=== PATIENT | female | born 1950 | race Caucasian/White ===

== ENCOUNTER → 2018-12-13 11:03 | Outpatient (CLI) | payer SELFPAY ==
--- NOTE | 2018-12-13 11:13 | RAD_ITS ---
STUDY: X-RAY - LEFT WRIST REASON FOR EXAM: Female, 68 years old. Pain following a fall. TECHNIQUE: 3 view(s) of the wrist were obtained. COMPARISON: None. FINDINGS: Normal visualized distal radius and ulna. Normal radiocarpal articulation. Normal distal radioulnar articulation. Normal carpal bones. Normal carpal articulations. Normal carpometacarpal articulation of the thumb. Normal second through fifth carpometacarpal articulations. Normal visualized metacarpal bones. Soft tissue swelling. RAD/Wrist min 3 Views IMPRESSION: Soft tissue swelling. Electronically Signed: Natan Dave, at 11:44 EDT , Service support ,
--- NOTE | 2018-12-13 11:14 | RAD_ITS ---
STUDY: X-RAY - LEFT HAND REASON FOR EXAM: Female, 68 years old. Pain following a fall. TECHNIQUE: 3 view(s) of the hand. COMPARISON: None. FINDINGS: Normal radiocarpal articulation. Normal distal radioulnar joint. Normal visualized carpal bones. Normal carpal articulations Normal carpometacarpal articulation of the thumb. Normal second through fifth carpometacarpal joints. Normal metacarpi. Normal metacarpophalangeal joint of the thumb. Normal interphalangeal joint of the thumb. Normal proximal and distal phalanges of the thumb. Normal metacarpophalangeal joints of the second through fifth fingers. Normal proximal and distal interphalangeal joints of the second through fifth fingers. Normal phalanges of the second through fifth fingers. The soft tissue structures are unremarkable. RAD/Hand Min 3 Views IMPRESSION: Normal x-ray examination of the hand. Electronically Signed: Natan Dave, at 11:43 EDT , Service support ,
== END ==
PROVIDERS: Family Provider Internal Medicine; PCP Internal Medicine; Referring Provider Nurse Practitioner Gerontology; Visit Provider Nurse Practitioner Gerontology
DX: M25.532 Pain in left wrist (principal)
CPT/HCPCS: 73110; 73130

== ENCOUNTER 2019-05-01 10:18 | Emergency (ER) | payer OTHER, SELFPAY ==
[2019-05-01 10:19] VITALS: BP 155/85; PULSE 78; RESP 20; TEMP 36.6; O2SAT 96; BMI 24.1
--- NOTE | 2019-05-01 10:50 | EKG12_ITS ---
Test Reason : N/V Blood Pressure : / mmHG Vent. Rate : 066 BPM Atrial Rate : 066 BPM P-R Int : 176 ms QRS Dur : 084 ms QT Int : 428 ms P-R-T Axes : 072 015 047 degrees QTc Int : 448 ms Normal sinus rhythm Normal ECG Confirmed by GARRETT DAVIDSON ([id number]), marketing editor MELCHOR CLEMONS ([id number]) on 05/06/2019 2:46:52 PM Referred By: EDDIE Confirmed By:GARRETT DAVIDSON
--- NOTE | 2019-05-01 10:50 | ED.DCSUM_ITS ---
History of Present Illness Chief Complaint: Nausea/Vomiting Informant: Patient Onset: Today Current Severity: Moderate Maximum Severity: Moderate Narrative: Patient presents after having diarrhea all day yesterday. This morning around 630 she started having nausea and vomiting along with mid to right sided abdominal pain. She is had occasional diarrhea today. She states she feels like she needs to urinate but is not able. She denies fever or chills. She denies prior abdominal surgery. Past Medical History - Allergies and Home Meds Allergies/Adverse Reactions: Allergies formaldehyde Allergy (Verified 05/01/19 10:21) Hives Primary Care Physician: Brenda Whelan DO [Primary Care Provider] - Prior records reviewed: Yes Past Medical History: - - Reviewed Lives: Spouse/ Significant Other Review of Systems General: Denies: Chills, Fever Eyes: Denies: Visual changes - bilaterally ENT: Denies: Bilateral ear pain Cardiovascular: Denies: Chest pain Respiratory: Denies: Dyspnea, Cough Gastrointestinal: Reports: Abdominal pain, Nausea, Vomiting, Diarrhea Genitourinary: Denies: Dysuria Musculoskeletal: Reports: Back pain - Right-sided abdominal pain wraps to right flank Skin: Denies: Rash Neurological: Denies: Headache Allergy: Denies: Uticaria Physical Exam Vital Signs/Narrative: Vital Signs Temp Pulse Resp BP Pulse Ox 05/01/19 10:19 98 F 78 20 H 155/85 H 96 Inital Vital Signs reviewed: Yes General: Well nourished, Well developed ENT: Moist mucous membranes Neck: Supple Cardiovascular: Regular rate, Regular rhythm Respiratory: No distress, CTA bilaterally Abdomen: Soft, Tender - Mild right upper quadrant tenderness., Hypoactive bowel sounds. Negative for: Guarding, Rebound tenderness Extremities: Nontender Skin: Normal color Neurological: Alert, Oriented x3 Psychological: Normal affect Diagnostic/Tx/Re-eval Impressions Abdomen/Pelvis CT 05/01/19 12:16 IMPRESSION: Right hydronephrosis and hydroureter with perinephric and periureteric stranding due to a 3.2 mm focus at the right ureteral vesicle junction. 2 mm nonobstructive calculus in the lower pole calyx of the right kidney. Calcified fibroid uterus. Electronically Signed: Natan Dave, at 12:46 EDT , Service support , 05/01/19 12:16 Abdomen/Pelvis without Cont [CT] Stat Laboratory Results 05/01/19 05/01/19 05/01/19 10:49 10:49 10:49 WBC 10.1 RBC 4.87 Hgb 14.9 Hct 45.2 MCV 92.8 MCH 30.6 MCHC 33.0 RDW Std Deviation 42.1 RDW Coeff of Hugo 12.2 Plt Count 195 MPV 10.8 Immature Gran % (Auto) 0.400 Neut % (Auto) 84.1 H Lymph % (Auto) 12.3 L S[place]y % (Auto) 2.9 Eos % (Auto) 0.1 Baso % (Auto) 0.2 Absolute Neuts (auto) 8.5 H Absolute Lymphs (auto) 1.24 Nucleated RBC % 0 Sodium 140 Potassium 3.8 Chloride 105 Carbon Dioxide 30.0 Anion Gap 5 BUN 15 Creatinine 0.80 Estim Creat Clear Calc 59.72 Est GFR (MDRD) Af Amer 91 Est GFR (MDRD) Non-Af 76 BUN/Creatinine Ratio 18.8 Glucose 130 H Calcium 9.1 Total Bilirubin 0.40 Direct Bilirubin 0.06 AST 20 ALT 28 Alkaline Phosphatase 65 Total Protein 7.6 Albumin 3.8 Globulin 3.8 Lipase 143 Urine Color Yellow Urine Clarity Sl. Cloudy Urine pH 6.0 Ur Specific Noel 1.025 Urine Protein 30 H Urine Glucose (UA) Normal Urine Ketones 50 H Urine Occult Blood 50 H Urine Nitrite Negative Urine Bilirubin Negative Urine Urobilinogen Normal Ur Leukocyte Esterase Negative Urine RBC 0-5 SEEN Urine WBC 0 SEEN Ur Squamous Epith Cells 0-5 SEEN Urine Bacteria 1+ Urine Mucus 0 SEEN - Medical Decision Making She was given morphine and Zofran followed by a dose of Phenergan for continued nausea. Bladder scan did not reveal significant urinary retention. CT scan does confirm distal kidney stone on the right. On repeat exam patient feels comfortable at this time. Test results were discussed with her. She will be given analgesics and nausea meds at home. She is referred to urology if not improving. ED Disposition - Plan for ED Patient: Disposition: Home or Assisted Living Diagnosis: Kidney stone Instructions: KIDNEY STONE w/ Colic Prescriptions: Tamsulosin HCl [Flomax] 0.4 mg PO DAILY #7 capsule Hydrocodone Bitart/Apap 5-325 [[place] 5MG-325MG] 1 tablet PO Q6H PRN PRN 3 Days #10 tablet PRN Reason: Pain Ondansetron [Zofran Odt] 4 mg PO Q8H PRN PRN #10 tablet PRN Reason: Nausea Referrals: Brenda Whelan DO [Primary Care Provider] - Irineo Araujo MD [STAFF PHYSICIAN] - 3-5 Days if not improving
--- NOTE | 2019-05-01 10:52 | NURSING ---
NO OLD EKGS
[2019-05-01 11:00] LABS: Absolute Lymphocyte Count 1.24 X10^3/uL (0.83-4.51); Absolute Neutrophil Count 8.5 X10^3/uL (2.0-7.7); Basophil# 0.02 X10^3/uL; Basophil% 0.2 % (0-1); Eosinophil# 0.01 X10^3/uL; Eosinophils% 0.1 % (0-5); Hematocrit 45.2 % (37-47); Hemoglobin 14.9 g/dL (12.0-15.0); Lymphocyte # 1.24 X10^3/ul (4.0); Lymphocyte % 12.3 % (19-41); Mean Corpuscular Hgb 30.6 pg (27.0-32.0); Mean Corpuscular Volume 92.8 fL (81-99); Mean Platelet Vol. 10.8 fl (6.2-12.0); Monocyte# 0.29 X10^3/uL; Monocyte% 2.9 % (0-10); NRBC Flagged by Analyzer 0 % (0-5); Neutrophil # 8.49 X10^3/uL (2.7-7.7); Neutrophil % 84.1 % (47-70); Platelet Count 195 K/mm3 (150-450); RBC Distribution Width CV 12.2 % (11.6-14.6); RBC Distribution Width SD 42.1 fl (35.1-43.9); Red Blood Count 4.87 M/mm3 (4.2-5.4); White Blood Count 10.1 K/mm3 (4.4-11.0)
[2019-05-01 11:01] LABS: Mucous, Urine 0 SEEN /hpf (<or=2+); White Blood Cells 0 SEEN /hpf (0-5)
[2019-05-01 11:02] LABS: Color, Urine Yellow (Yellow); Glucose, Dipstick Normal (Normal); Ketone-Dipstick 50 mg/dl (Negative); Leukocyte Esterase-Dipstick Negative /ul (Negative); Nitrite-Dipstick Negative (Negative); Occult Blood-Urine 50 /ul (Negative); Protein-Dipstick 30 mg/dl (Negative); Specific Gravity, Urine 1.025 (1.002-1.030); Urine Bilirubin Dipstick Negative (Negative); Urine Clarity Sl. Cloudy (Clear); Urine Urobilinogen Normal (Normal)
[2019-05-01 11:13] LABS: Red Blood Cells-Urine 0-5 SEEN /hpf (0-5); Squamous Epithelial Cells - UA 0-5 SEEN /hpf (5-10)
[2019-05-01 11:14] LABS: Bacteria 1+ /hpf (None Seen)
[2019-05-01 11:17] LABS: AST(SGOT) 20 U/L (15-37); Alanine Aminotransfer ALT/SGPT 28 U/L (13-56); Albumin, Serum 3.8 g/dL (3.2-5.0); Alkaline Phosphatase 65 U/L (45-117); Anion Gap 5 (5-15); BUN 15 mg/dL (7-18); BUN/Creat Ratio 18.8 RATIO (10-20); Bilirubin, Direct 0.06 mg/dL (0.00-0.30); Calcium,Total 9.1 mg/dL (8.5-10.1); Chloride 105 mmol/L (98-107); EST Glomerular Filtration Rate 76 mL/min (>60); Est Glom Filt Rate - Afr Amer 91 mL/min (>60); Estimated Creatinine Clearance 59.72 ml/min; Globulin 3.8 g/dL (2.2-4.2); Glucose 130 mg/dL (74-106); Lipase 143 U/L (73-393); Potassium 3.8 mmol/L (3.5-5.1); Protein, Total 7.6 g/dL (6.4-8.2); Sodium Level 140 mmol/L (136-145)
[2019-05-01] MEDS: 0.9% Normal Saline 1,000 ML 150 ML IV (11:53)
[2019-05-01] MEDS: Ondansetron 4 MG/2 ML Vial IV (11:53)
[2019-05-01] MEDS: Morphine 4 MG/ML Syringe IV (11:54)
--- NOTE | 2019-05-01 12:16 | CT_ITS ---
STUDY: CT ABDOMEN AND PELVIS WITHOUT CONTRAST REASON FOR EXAM: Female, 69 years old. Right flank pain with nausea and vomiting. RADIATION DOSAGE (If Supplied By Facility): CTDIvol = ( 9.35 ) mGy, DLP = ( 425.05 ) mGycm TECHNIQUE: Transaxial images were obtained from the dome of the diaphragm to the symphysis pubis without oral contrast, and without intravenous contrast. Sagittal and coronal images were reconstructed. Individualized dose optimization techniques were used for this CT. COMPARISON: None. FINDINGS: Focal scarring and bronchiectasis in the anterior medial aspect of the right middle lobe. Mild degree of scarring at the lung bases. The visualized portions of the heart are within normal limits. Normal liver. The patient is status post cholecystectomy. Normal spleen. Normal pancreas. Normal bilateral adrenal glands. Mild degree of right sided hydronephrosis. Right perinephric and periureteric stranding. There is a 3.2 mm calculus at the right ureterovesical junction. 2 mm calculus in the lower pole calyx of the right kidney. Normal left kidney. There is a small hiatal hernia. Normal small intestine. Normal colon. The appendix is visualized and appears normal. Normal abdominal aorta. Normal inferior vena cava. There is borderline retroperitoneal lymphadenopathy with enlarged nodes no greater than 10mm in the short axis diameter. Normal urinary bladder. Calcified fibroid uterus. 2.3 cm x 2.2 cm cyst in the left ovary. Phleboliths are seen within the pelvis. Normal abdominal wall. There are mild degenerative changes of the visualized lumbar spine. CT/Abdomen/Pelvis without Cont IMPRESSION: Right hydronephrosis and hydroureter with perinephric and periureteric stranding due to a 3.2 mm focus at the right ureteral vesicle junction. 2 mm nonobstructive calculus in the lower pole calyx of the right kidney. Calcified fibroid uterus. Electronically Signed: Natan Dave, at 12:46 EDT , Service support ,
[2019-05-01 12:25] VITALS: BP 148/64; PULSE 91; RESP 18; O2SAT 98
--- NOTE | 2019-05-01 12:27 | ED.RN ---
did a bladder scan on the pt. the most urine that I saw was 75 cc. the pt was able to urinate 25 cc out. pt states that she still feels like she needs to urinate. did a post residual void on the pt and there was nothing in here bladder. let the doctor know. abdomen still appears slightly distended.
[2019-05-01] MEDS: proMETHazine 25 MG/ML Syringe 12.5 MG IV (12:33)
[2019-05-01 13:47] VITALS: BP 128/92; PULSE 63; RESP 16; O2SAT 94
[2019-05-01 14:54] VITALS: BP 140/74; PULSE 64; RESP 16; O2SAT 99
== END 2019-05-01 14:55 | disposition home or self-care (01) ==
PROVIDERS: Emergency Provider Emergency Medicine; Family Provider Internal Medicine; PCP Internal Medicine
DX: N13.2 Hydronephrosis with renal and ureteral calculous obstruction (principal); R19.7 Diarrhea, unspecified; D25.9 Leiomyoma of uterus, unspecified
CPT/HCPCS: 74176; 80048; 80076; 81001; 83690; 85025; 93005; 96361; 96374; 96375; 99284; J7030; A4216; J2405

== ENCOUNTER → 2024-02-02 | Outpatient (CLI) | payer OTHER, SELFPAY ==
[2024-02-02 11:56] LABS: Erythrocyte Sedimentation Rate 11 mm/hr (0-30)
[2024-02-02 12:01] LABS: Absolute Lymphocyte Count 1.29 X10^3/uL (0.83-4.51); Absolute Neutrophil Count 7.3 X10^3/uL (2.0-7.7); Basophil# 0.04 X10^3/uL; Basophil% 0.4 % (0-1); Eosinophil# 0.07 X10^3/uL; Eosinophils% 0.8 % (0-5); Hematocrit 41.6 % (37-47); Hemoglobin 13.3 g/dL (12.0-15.0); Lymphocyte # 1.29 X10^3/ul (0.83-4.51); Mean Corpuscular Hgb 30.6 pg (27.0-32.0); Mean Corpuscular Volume 95.9 fL (81-99); Mean Platelet Vol. 9.3 fl (6.2-12.0); Monocyte# 0.43 X10^3/uL; Monocyte% 4.7 % (0-10); NRBC Flagged by Analyzer 0 % (0-5); Neutrophil # 7.33 X10^3/uL (2.7-7.7); Neutrophil % 79.4 % (47-70); Platelet Count 287 K/mm3 (150-450); RBC Distribution Width CV 12.1 % (11.6-14.6); RBC Distribution Width SD 42.5 fl (35.1-43.9); Red Blood Count 4.34 M/mm3 (4.2-5.4); White Blood Count 9.2 K/mm3 (4.4-11.0)
[2024-02-02 12:17] LABS: AST(SGOT) 21 U/L (15-37); Alanine Aminotransfer ALT/SGPT 27 U/L (13-56); Albumin, Serum 3.4 g/dL (3.2-5.0); Alkaline Phosphatase 64 U/L (45-117); Anion Gap 5 (5-15); BUN 12 mg/dL (7-18); Calcium,Total 9.4 mg/dL (8.5-10.1); Chloride 105 mmol/L (98-107); EST Glomerular Filtration Rate 104 mL/min (>60); Est Glom Filt Rate - Afr Amer 126 mL/min (>60); Globulin 3.4 g/dL (2.2-4.2); Glucose 114 mg/dL (74-106); Potassium 4.1 mmol/L (3.5-5.1); Protein, Total 6.8 g/dL (6.4-8.2); Sodium Level 139 mmol/L (136-145)
== END | disposition home or self-care (01) ==
LOC: LAB 10:56
PROVIDERS: PCP Internal Medicine
DX: M31.6 Other giant cell arteritis (principal); R79.89 Other specified abnormal findings of blood chemistry; M35.3 Polymyalgia rheumatica; Z79.1 Long term (current) use of non-steroidal anti-inflammatories (NSAID); I10 Essential (primary) hypertension; R70.0 Elevated erythrocyte sedimentation rate; Z79.52 Long term (current) use of systemic steroids; M25.50 Pain in unspecified joint; R79.82 Elevated C-reactive protein (CRP)
CPT/HCPCS: 36415; 80053; 85025; 85652; 86140

== ENCOUNTER → 2024-03-05 | Outpatient (CLI) | payer OTHER, SELFPAY ==
[2024-03-05 15:59] LABS: Absolute Lymphocyte Count 1.85 X10^3/uL (0.83-4.51); Absolute Neutrophil Count 6.1 X10^3/uL (2.0-7.7); Basophil# 0.05 X10^3/uL; Basophil% 0.6 % (0-1); Eosinophil# 0.04 X10^3/uL; Eosinophils% 0.5 % (0-5); Hematocrit 42.3 % (37-47); Hemoglobin 13.4 g/dL (12.0-15.0); Lymphocyte # 1.85 X10^3/ul (0.83-4.51); Lymphocyte % 21.9 % (19-41); Mean Corp Hgb Conc 31.7 g/dL (32-36); Mean Corpuscular Hgb 29.5 pg (27.0-32.0); Mean Platelet Vol. 9.6 fl (6.2-12.0); Monocyte# 0.35 X10^3/uL; Monocyte% 4.1 % (0-10); NRBC Flagged by Analyzer 0 % (0-5); Neutrophil % 72.3 % (47-70); Platelet Count 302 K/mm3 (150-450); RBC Distribution Width SD 41.1 fl (35.1-43.9); Red Blood Count 4.55 M/mm3 (4.2-5.4); White Blood Count 8.4 K/mm3 (4.4-11.0)
[2024-03-05 16:20] LABS: Erythrocyte Sedimentation Rate 9 mm/hr (0-30)
[2024-03-05 16:29] LABS: ALB/GLOB Ratio 1.1 RATIO (0.9-2.4); AST(SGOT) 14 U/L (15-37); Alanine Aminotransfer ALT/SGPT 24 U/L (13-56); Albumin, Serum 3.7 g/dL (3.2-5.0); Alkaline Phosphatase 62 U/L (45-117); Anion Gap 5 (5-15); BUN 16 mg/dL (7-18); Calcium,Total 9.7 mg/dL (8.5-10.1); Chloride 108 mmol/L (98-107); Creatinine, Serum 0.57 mg/dL (0.55-1.02); EST Glomerular Filtration Rate 110 mL/min (>60); Est Glom Filt Rate - Afr Amer 133 mL/min (>60); Globulin 3.5 g/dL (2.2-4.2); Glucose 111 mg/dL (74-106); Protein, Total 7.2 g/dL (6.4-8.2); Sodium Level 140 mmol/L (136-145)
== END | disposition home or self-care (01) ==
LOC: LAB 14:55
PROVIDERS: PCP Internal Medicine
DX: M31.6 Other giant cell arteritis (principal); I10 Essential (primary) hypertension; M35.3 Polymyalgia rheumatica; Z79.52 Long term (current) use of systemic steroids
CPT/HCPCS: 36415; 80053; 85025; 85652; 86140

== ENCOUNTER → 2024-03-27 | Outpatient (CLI) | payer OTHER, SELFPAY ==
--- NOTE | 2024-03-27 16:39 | RAD_ITS ---
INDICATION: OA EXAMINATION/TECHNIQUE: X-RAY - XR Pelvis 1 or 2 Views COMPARISON: Prior study dated: 05/01/2019 FINDINGS: PELVIC BONES: No displaced fracture, destructive or sclerotic lesions. Note that overlapping bowel shadows may however obscure fine detail. Sacroiliac joints are unremarkable. No widening of the pubic symphysis. HIPS: The hips are well aligned. Mild joint space narrowing bilaterally with subchondral sclerosis present. Small osteophytes. No displaced fracture seen in this frontal view. SOFT TISSUES: No soft tissue swelling or gas. Calcification centrally in the pelvis likely associated with fibroids. RAD/Pelvis 1 or 2 Views IMPRESSION: No evidence of displaced pelvic or hip fracture. Mild degenerative change at both hips. Electronically Signed: Herb Priest MD at 23:33 EDT ,
[2024-03-27 17:00] LABS: Absolute Lymphocyte Count 1.84 X10^3/uL (0.83-4.51); Absolute Neutrophil Count 7.6 X10^3/uL (2.0-7.7); Basophil# 0.04 X10^3/uL; Basophil% 0.4 % (0-1); Eosinophil# 0.06 X10^3/uL; Eosinophils% 0.6 % (0-5); Hematocrit 40.2 % (37-47); Hemoglobin 12.8 g/dL (12.0-15.0); Lymphocyte # 1.84 X10^3/ul (0.83-4.51); Lymphocyte % 18.1 % (19-41); Mean Corp Hgb Conc 31.8 g/dL (32-36); Mean Corpuscular Hgb 29.1 pg (27.0-32.0); Mean Corpuscular Volume 91.4 fL (81-99); Mean Platelet Vol. 9.6 fl (6.2-12.0); Monocyte# 0.55 X10^3/uL; Monocyte% 5.4 % (0-10); NRBC Flagged by Analyzer 0 % (0-5); Neutrophil # 7.64 X10^3/uL (2.7-7.7); Platelet Count 278 K/mm3 (150-450); RBC Distribution Width CV 12.3 % (11.6-14.6); RBC Distribution Width SD 41.3 fl (35.1-43.9); White Blood Count 10.2 K/mm3 (4.4-11.0)
[2024-03-27 17:42] LABS: Erythrocyte Sedimentation Rate 22 mm/hr (0-30)
[2024-03-27 17:45] LABS: AST(SGOT) 19 U/L (15-37); Alanine Aminotransfer ALT/SGPT 27 U/L (13-56); Albumin, Serum 3.4 g/dL (3.2-5.0); Alkaline Phosphatase 68 U/L (45-117); Anion Gap 5 (5-15); BUN 16 mg/dL (7-18); BUN/Creat Ratio 27.1 RATIO (10-20); Calcium,Total 9.2 mg/dL (8.5-10.1); Chloride 106 mmol/L (98-107); Creatinine, Serum 0.59 mg/dL (0.55-1.02); EST Glomerular Filtration Rate 106 mL/min (>60); Est Glom Filt Rate - Afr Amer 128 mL/min (>60); Globulin 3.5 g/dL (2.2-4.2); Glucose 102 mg/dL (74-106); Potassium 3.8 mmol/L (3.5-5.1); Protein, Total 6.9 g/dL (6.4-8.2); Rheumatoid Factor < 10.0 IU/mL (<15); Sodium Level 138 mmol/L (136-145)
[2024-03-27 17:58] LABS: Hepatitis B Surface Antibody Non-Reactive; Hepatitis B Surface Antigen Non-Reactive (Nonreactive); Hepatitis C Antibody Non-Reactive (Nonreactive)
[2024-03-29 21:07] LABS: CCP IgG Antibodies 27 units (0-19); QNTFERON TB Mitogen Value > 10.00 IU/mL (.); QNTFERON TB Nil Value 0.02 IU/mL (.); QNTFERON TB1+ Ag Value 0.02 IU/mL (.); QNTFERON TB2+ Ag Value 0.03 IU/mL (.); QNTIFERON TB Positive Criteria Negative (Negative)
== END | disposition home or self-care (01) ==
LOC: LAB 16:10
PROVIDERS: PCP Internal Medicine; Referring Provider Internal Medicine Rheumatology; Visit Provider Internal Medicine Rheumatology
DX: M31.6 Other giant cell arteritis (principal); M17.0 Bilateral primary osteoarthritis of knee; M16.0 Bilateral primary osteoarthritis of hip; H47.20 Unspecified optic atrophy; Z79.899 Other long term (current) drug therapy
CPT/HCPCS: 36415; 72170; 80053; 85025; 85652; 86140; 86200; 86431; 86480; 86706; 86803; 87340

== ENCOUNTER → 2024-04-13 | Outpatient (CLI) | payer OTHER, SELFPAY ==
[2024-04-13 11:41] LABS: Erythrocyte Sedimentation Rate 11 mm/hr (0-30)
== END | disposition home or self-care (01) ==
LOC: LAB 10:30
PROVIDERS: PCP Internal Medicine; Referring Provider Internal Medicine Rheumatology; Visit Provider Internal Medicine Rheumatology
DX: M31.6 Other giant cell arteritis (principal); Z79.899 Other long term (current) drug therapy; M17.0 Bilateral primary osteoarthritis of knee; M16.0 Bilateral primary osteoarthritis of hip
CPT/HCPCS: 36415; 85652; 86140

== ENCOUNTER → 2024-04-25 | Outpatient (CLI) | payer SELFPAY, OTHER ==
--- NOTE | 2024-04-25 16:08 | BD_ITS ---
STUDY: DUAL ENERGY X-RAY ABSORPTIOMETRY / DXA REASON FOR EXAM: Female, 74 years old. Post - Menopausal TECHNIQUE: Bone Mineral Density (BMD) measurements of lumbar spine and bilateral hips were obtained. COMPARISON: None. FINDINGS: Lumbar Spine (L1-L4): g/cm2 (0.730) / T-score (-2.9) / Z-score (-0.6) Findings are suggestive of osteoporosis with a high fracture risk. Left Femur Total: g/cm2 (0.733) / T-score (-1.7) / Z-score (0.0) Left Femoral Neck: g/cm2 (0.655) / T-score (-1.7) / Z-score (0.3) Right Femur Total: g/cm2 (0.691) / T-score (-2.1) / Z-score (-0.3) Right Femoral Neck: g/cm2 (0.577) / T-score (-2.4) / Z-score (-0.4) BD/Dexa Bone Density Study IMPRESSION: The patient is considered osteoporotic as outlined below according to World [employer] Organization (WHO) criteria with a high fracture risk. Reference Information: The T-score is the number of standard deviations above or below the standard which is normal for young adults at their peak bone mineral density. The World Health Organization (WHO) interprets the T-scores as follows: Above -1 Normal bone density Between -1 and -2.5 Osteopenia Equal to / or below -2.5 Osteoporosis As a practical clinical guideline, osteopenia may be graded as follows: Mild -1 through -1.5 Moderate -1.6 through -2.0 Severe -2.1 through -2.4 The Z-score is the number of standard deviations above or below age-matched controls. A Z-score of less than -1.5 would be considered abnormal. References: 1. NIH Osteoporosis and Related Bone Diseases www osteo.org 2. International Society for Clinical Densitometry www iscd.org 3. National Osteoporosis Foundation www nof.org Electronically Signed: Natan Dave MD at 13:24 EDT ,
== END | disposition home or self-care (01) ==
LOC: OPBD 16:05
PROVIDERS: PCP Internal Medicine; Referring Provider Internal Medicine; Visit Provider Internal Medicine
DX: Z78.0 Asymptomatic menopausal state (principal)
CPT/HCPCS: 77080

== ENCOUNTER → 2024-05-27 | Outpatient (CLI) | payer OTHER, SELFPAY ==
[2024-05-27 11:45] LABS: Erythrocyte Sedimentation Rate 6 mm/hr (0-30)
[2024-05-27 12:05] LABS: CRP 4.38 mg/L (0.0-3.0)
== END | disposition home or self-care (01) ==
LOC: LAB 10:23
PROVIDERS: PCP Internal Medicine; Referring Provider Internal Medicine Rheumatology; Visit Provider Internal Medicine Rheumatology
DX: M31.6 Other giant cell arteritis (principal); Z79.899 Other long term (current) drug therapy; H47.20 Unspecified optic atrophy; Z87.19 Personal history of other diseases of the digestive system
CPT/HCPCS: 36415; 85652; 86140

== ENCOUNTER → 2024-07-06 | Outpatient (CLI) | payer OTHER, SELFPAY ==
[2024-07-06 09:47] LABS: Erythrocyte Sedimentation Rate 17 mm/hr (0-30)
[2024-07-06 10:01] LABS: CRP 5.18 mg/L (0.0-3.0)
== END | disposition home or self-care (01) ==
LOC: LAB 09:10
PROVIDERS: PCP Internal Medicine; Referring Provider Internal Medicine Rheumatology; Visit Provider Internal Medicine Rheumatology
DX: M31.6 Other giant cell arteritis (principal); Z79.899 Other long term (current) drug therapy
CPT/HCPCS: 36415; 85652; 86140

== ENCOUNTER → 2024-08-03 | Outpatient (CLI) | payer OTHER, SELFPAY ==
[2024-08-03 11:05] LABS: Erythrocyte Sedimentation Rate 7 mm/hr (0-30)
[2024-08-03 11:12] LABS: CRP 4.99 mg/L (0.0-3.0)
== END | disposition home or self-care (01) ==
LOC: LAB 10:47
PROVIDERS: PCP Internal Medicine; Referring Provider Internal Medicine Rheumatology; Visit Provider Internal Medicine Rheumatology
DX: M31.6 Other giant cell arteritis (principal); Z79.899 Other long term (current) drug therapy
CPT/HCPCS: 36415; 85652; 86140

== ENCOUNTER → 2024-10-03 | Outpatient (CLI) | payer OTHER, SELFPAY ==
[2024-10-03 11:38] LABS: Erythrocyte Sedimentation Rate 14 mm/hr (0-30)
[2024-10-03 11:39] LABS: CRP 8.49 mg/L (0.0-3.0)
== END | disposition home or self-care (01) ==
LOC: LAB 10:18
PROVIDERS: PCP Internal Medicine; Referring Provider Internal Medicine Rheumatology; Visit Provider Internal Medicine Rheumatology
DX: M31.6 Other giant cell arteritis (principal); Z79.899 Other long term (current) drug therapy; Z87.19 Personal history of other diseases of the digestive system
CPT/HCPCS: 36415; 85652; 86140

== ENCOUNTER → 2024-10-21 | Outpatient (CLI) | payer OTHER, SELFPAY ==
[2024-10-21 15:12] LABS: Absolute Neutrophil Count 5.2 X10^3/uL (2.0-7.7); Basophil# 0.04 X10^3/uL; Basophil% 0.4 % (0-1); Eosinophil# 0.13 X10^3/uL; Eosinophils% 1.4 % (0-5); Hematocrit 44.2 % (37-47); Lymphocyte % 33.9 % (19-41); Mean Corp Hgb Conc 31.7 g/dL (32-36); Mean Corpuscular Hgb 29.6 pg (27.0-32.0); Mean Corpuscular Volume 93.4 fL (81-99); Mean Platelet Vol. 10.1 fl (6.2-12.0); Monocyte# 0.63 X10^3/uL; Monocyte% 6.9 % (0-10); NRBC Flagged by Analyzer 0 % (0-5); Neutrophil # 5.21 X10^3/uL (2.7-7.7); Platelet Count 254 K/mm3 (150-450); RBC Distribution Width CV 13.2 % (11.6-14.6); RBC Distribution Width SD 45.8 fl (35.1-43.9); Red Blood Count 4.73 M/mm3 (4.2-5.4); White Blood Count 9.2 K/mm3 (4.4-11.0)
[2024-10-21 16:47] LABS: Vitamin D,25 Hydroxy 70.6 ng/mL
[2024-10-21 19:34] LABS: ALB/GLOB Ratio 1.1 RATIO (0.9-2.4); AST(SGOT) 21 U/L (15-37); Alanine Aminotransfer ALT/SGPT 39 U/L (13-56); Albumin, Serum 3.6 g/dL (3.2-5.0); Alkaline Phosphatase 71 U/L (45-117); Anion Gap 6 (5-15); BUN 12 mg/dL (7-18); BUN/Creat Ratio 18.3 RATIO (10-20); Calcium,Total 9.7 mg/dL (8.5-10.1); Chloride 106 mmol/L (98-107); Creatinine, Serum 0.65 mg/dL (0.55-1.02); EST Glomerular Filtration Rate 94 mL/min (>60); Est Glom Filt Rate - Afr Amer 114 mL/min (>60); Globulin 3.3 g/dL (2.2-4.2); Glucose 87 mg/dL (74-106); Potassium 3.6 mmol/L (3.5-5.1); Protein, Total 6.9 g/dL (6.4-8.2); Sodium Level 141 mmol/L (136-145)
== END | disposition home or self-care (01) ==
LOC: BIMLAB 12:01
PROVIDERS: PCP Internal Medicine; Referring Provider Internal Medicine; Visit Provider Internal Medicine
DX: M81.0 Age-related osteoporosis without current pathological fracture (principal); K50.90 Crohn's disease, unspecified, without complications
CPT/HCPCS: 36415; 80053; 82306; 85025

== ENCOUNTER → 2024-11-22 | Outpatient (CLI) | payer OTHER, SELFPAY ==
[2024-11-22 09:44] LABS: Erythrocyte Sedimentation Rate 2 mm/hr (0-30)
[2024-11-22 11:09] LABS: CRP 5.07 mg/L (0.0-3.0)
== END | disposition home or self-care (01) ==
LOC: LAB 08:28
PROVIDERS: PCP Internal Medicine; Referring Provider Internal Medicine Rheumatology; Visit Provider Internal Medicine Rheumatology
DX: M31.6 Other giant cell arteritis (principal); Z79.899 Other long term (current) drug therapy; H47.20 Unspecified optic atrophy; M17.0 Bilateral primary osteoarthritis of knee; M16.0 Bilateral primary osteoarthritis of hip
CPT/HCPCS: 36415; 85652; 86140

== ENCOUNTER → 2025-01-22 | Outpatient (CLI) | payer OTHER, SELFPAY ==
[2025-01-22 09:34] LABS: Erythrocyte Sedimentation Rate 6 mm/hr (0-30)
[2025-01-22 13:13] LABS: CRP 4.12 mg/L (0.0-3.0)
== END | disposition home or self-care (01) ==
LOC: LAB 08:49
PROVIDERS: PCP Internal Medicine; Referring Provider Internal Medicine Rheumatology; Visit Provider Internal Medicine Rheumatology
DX: M31.6 Other giant cell arteritis (principal); Z79.899 Other long term (current) drug therapy
CPT/HCPCS: 36415; 85652; 86140

== ENCOUNTER → 2025-03-12 | Outpatient (CLI) | payer OTHER, SELFPAY ==
--- OUTSIDE RECORDS SUMMARY | 2025-03-12 10:03 | XMS RPT_ITS | CCD ---
Author Organization [facility] Team Providers Care Sewer Line Repairer Name Role Phone Brenda Whelan Attending Unavailable Brenda Whelan Referring Unavailable CleopatraBrenda guillaume Consulting Unavailable Yennifer Whelanhleen Unavailable Melvin Sims Unavailable Ron Del Rosario Unavailable Rafy Leon Unavailable Unavailable Shahana Rebolledo Unavailable Unavailable Yoni MEI, Dr. Parrish Primary Care Provider Marta MEI, Dr. Gilmore Attending Provider Marta MEI, Dr. Gilmore Referring Provider Yoni MEI, Dr. Parrish Attending Provider [phone] Yoni MEI, Dr. Parrish Referring Provider [phone] Yoni MEI, Dr. Parrish Primary Care Provider Marta MEI, Dr. Gilmore Attending Provider Marta MEI, Dr. Gilmore Referring Provider Yoni MEI, Dr. Parrish Attending Provider [phone] Yoni MEI, Dr. Parrish Referring Provider [phone] Chris Vallejoongjayla Primary Care Unavailable John [place] Consulting Unavailable LORETTA DEVLIN Referring Unavailable LORETTA DEVLIN Attending Unavailable LORETTA DEVLIN Attending Unavailable Yoni, Efewongbe Primary Care Unavailable John [place] Consulting Unavailable LORETTA DEVLIN Referring Unavailable Shivani Vallejo Attending Unavailable Brenda Whelan Referring Unavailable Yoni, Efewongbe Primary Care Unavailable Vellanki, Deirdre Attending Unavailable Vellanki, Deirdre Referring Unavailable Oleghe, Efewongbe Primary Care Unavailable Vellanki, Deirdre Attending Unavailable Vellanki, Deirdre Referring Unavailable Oleghe, Efewongbe Primary Care Unavailable Vellanki, Deirdre Attending Unavailable Vellanki, Deirdre Referring Unavailable Oleghe, Efewongbe Primary Care Unavailable Oleghe, Efewongbe Referring Unavailable Oleghe, Efewongbe Attending Unavailable Oleghe, Efewongbe Primary Care Unavailable Oleghe, Efewongbe Referring Unavailable Oleghe, Efewongbe Attending Unavailable Oleghe, Efewongbe Primary Care Unavailable Oleghe, Efewongbe Referring Unavailable Oleghe, Efewongbe Attending Unavailable Oleghe, Efewongbe Primary Care Unavailable Vellanki, Deirdre Attending Unavailable Vellanki, Deirdre Referring Unavailable Oleghe, Efewongbe Primary Care Unavailable Vellanki, Deirdre Attending Unavailable Vellanki, Deirdre Referring Unavailable Oleghe, Efewongbe Primary Care Unavailable Vellanki, Deirdre Attending Unavailable Vellanki, Deirdre Referring Unavailable Oleghe, Efewongbe Primary Care Unavailable Oleghe, Efewongbe Referring Unavailable Oleghe, Efewongbe Attending Unavailable Oleghe, Efewongbe Primary Care Unavailable Oleghe, Efewongbe Primary Care Unavailable Vellanki, Deirdre Attending Unavailable Vellanki, Deirdre Referring Unavailable Oleghe, Efewongbe Primary Care Unavailable Vellanki, Deirdre Referring Unavailable Vellanki, Deirdre Attending Unavailable Oleghe Dr. Shivani MEI Primary Care Provider Dr. Deirdre Lozano MD Attending Provider Dr. Deirdre Lozano MD Referring Provider Allergies Allergy Classification Reported Allergen(s) Allergy Type Date of Onset Reaction(s) Facility (4 sources) Formaldehyde; Translations: [Formaldehyde *Antiseptics & Disinfectants] Drug Allergy 5 [facility] Work Phone: (1 source) Formaldehyde Drug Allergy 5 [facility] Repository Medications Current Medications Medication Drug Class(es) Dates Sig (Normalized) Sig (Original) calcium carbonate 1250 mg chewable tablet (3 sources) Start: 02-05-2024 Calcium Carbonate (Calcium 500) 500 mg calcium (1,250 mg) tablet,chewable Active 1000 mg PO DAILY February 05, 2024 12:00am cholecalciferol 0.125 mg oral capsule (3 sources) Vitamin D Start: 02-05-2024 take 1 capsule by mouth once daily Cholecalciferol (Vitamin D3) 125 mcg (5,000 unit) capsule Active 125 ug PO DAILY February 05, 2024 12:00am lysine 1000 mg oral tablet (3 sources) Start: 02-05-2024 take 1 tablet by mouth once daily Lysine 1,000 mg tablet Active 1000 mg PO DAILY February 05, 2024 12:00am Magnesium (3 sources) Start: 02-05-2024 take 2 tablets by mouth once daily Magnesium 200 mg tablet Active 400 mg PO DAILY February 05, 2024 12:00am Start: 02-05-2024 take 2 tablets by mo ut once daily Magnesium 200 mg tablet Active 400 mg PO DAILY February 04, 2024 11:00pm predniSONE 10 mg oral tablet (9 sources) Start: 02-05-2024 take 1 tablet by mouth once daily Prednisone 10 mg tablet Active 10 mg PO DAILY February 05, 2024 12:00am Start: 02-05-2024 End: 10-21-2024 take 2.5 mg by mouth once daily Prednisone 5 mg tablet Discontinued 2.5 mg PO DAILY February 05, 2024 12:00am October 21, 2024 11:49am Start: 05-26-2022 End: 07-06-2023 take 2 tablets by mouth once daily Prednisone 20 mg tablet Discontinued 40 mg PO DAILY May 26, 2022 12:00am July 06, 2023 5:00pm super food (3 sources) Start: 07-06-2023 super food Act maria ines PO DAILY July 06, 2023 1:00am Start: 07-06-2023 super food Act maria ines PO DAILY July 06, 2023 12:00am Completed/Discontinued Medications Medication Drug Class(es) Dates Sig (Normalized) Sig (Original) acetaminophen 325 mg / HYDROcodone bitartrate 5 mg oral tablet (3 sources) Opioid Agonist Start: 05-01-2019 End: 05-10-2019 Hydrocodone-Acetam inophen 1 TABLET tablet Discontinued 1 {tbl} PO EVERY 6 HOURS NEEDED as needed for Pain 10 3 May 01, 2019 May 03, 2019 12:00am May 10, 2019 12:10am amoxicillin 875 mg / clavulanate 125 mg oral tablet (1 source) Penicillin-class Antibacterial Start: 06-05-2015 End: 04-11-2016 take 1 tablet by mouth twice daily Augmentin 875-125 MG Oral Tablet 1 (one) Tablet bid for 0 days Quantity: 20 {Tablet} Refills: 0 Ordered: 11-Apr-2016 Shahana Padron LPN Start : 05-Jun-2015 End : 11-Apr-2016 Inactive ascorbic acid 500 mg oral tablet (3 sources) Vitamin C Start: 07-06-2023 End: 02-05-2024 take 1 tablet by mouth once daily Ascorbic Acid (Vitamin C) 500 mg tablet Discontinued 500 mg PO DAILY July 06, 2023 1:00am February 05, 2024 1:26pm azithromycin 250 mg oral tablet (1 source) Macrolide Antimicrobial Start: 08-07-2017 End: 12-13-2018 take 1 tablet by mouth once daily Zithromax Z-Kingsley 250 MG Oral Tablet tad Tablet qd for 0 days Quantity: 1 {Package} Refills: 0 Ordered: 13-Dec-2018 Rafy Leon Start : 07-Aug-2017 End : 13-Dec-2018 Inactive cefdinir 300 mg oral capsule (3 sources) Cephalosporin Antibacterial Start: 05-26-2022 End: 07-06-2023 take 1 capsule by mouth twice daily Cefdinir 300 mg capsule Discontinued 300 mg PO TWICE A DAY May 26, 2022 12:00am July 06, 2023 5:00pm Nvzqutlbl-Nbeazf-G3 -B2-Betain (Methyl Protect) 1,000 mcg-3,400 mcg DFE-10 mg capsule (3 sources) Start: 07-06-2023 End: 02-05-2024 take 1 capsule by mouth once daily Ttgvpzqmw-Oufqjf-L 6-B2-Betain (Methyl Protect) 1,000 mcg-3,400 mcg DFE-10 mg capsule Discontinued 1 NMA PO DAILY July 06, 2023 1:00am February 05, 2024 1:26pm Start: 07-06-2023 End: 02-05-2024 take 1 capsule by mouth once daily Eomhxruvd-Hydvki-Q9-B2-Betain (Methyl Protect) 1,000 mcg-3,400 mcg DFE-10 mg capsule Discontinued 1 NMA PO DAILY July 06, 2023 12:00am February 05, 2024 12:26pm mirtazapine 7.5 mg oral tablet (3 sources) Start: 07-06-2023 End: 10-21-2024 take 1 tablet by mouth at bedtime as needed Mirtazapine 7.5 mg tablet Discontinued 7.5 mg PO AT BEDTIME as needed for Insomina 90 July 06, 2023 1:00am October 21, 2024 11:50am Dk-Fz-Ztrh-Fa-Ca Carb-Vit K (One-A-Day Womens Formula) 18 mg iron-400 mcg-500 mg tablet (3 sources) Start: 07-06-2023 End: 02-05-2024 Wg-Cc-Vznk-Fa-Ca Carb-Vit K (One-A-Day Womens Formula) 18 mg iron-400 mcg-500 mg tablet Discontinued 1 {tbl} PO DAILY July 06, 2023 1:00am February 05, 2024 1:26pm Start: 07-06-2023 End: 02-05-2024 Wd-Yv-Omsg-Fa-Ca Carb-Vit K (One-A-Day Womens Formula) 18 mg iron-400 mcg-500 mg tablet Discontinued 1 {tbl} PO DAILY July 06, 2023 12:00am February 05, 2024 12:26pm ondansetron 4 mg disintegrating oral tablet (3 sources) Serotonin-3 Receptor Antagonist Start: 05-01-2019 End: 05-26-2022 take 1 tablet by mouth every eight hours as needed for nausea Ondansetron 4 MG tablet Discontinued 4 mg PO EVERY 8 HOURS NEEDED as needed for Nausea May 01, 2019 12:00am May 26, 2022 1:24pm tamsulosin hydrochloride 0.4 mg oral capsule (3 sources) alpha-Adrenergic Gee Start: 05-01-2019 End: 05-26-2022 take 1 capsule by mouth once daily Tamsulosin 0.4 MG capsule Discontinued 0.4 mg PO DAILY May 01, 2019 12:00am May 26, 2022 1:24pm NEGATED: Highlighted row has not occurred!drug or medication (1 source) No Known Historical Medications Problems Active Problems Problem Classification Problem Date Documented Da te Episodic/Chronic Calculus of urinary tract (3 sources) Kidney stone; Translations: [Calculus of kidney] 05-02-2019 Episodic Chronic obstructive pulmonary disease and bronchiectasis (3 sources) Bronchitis; Translations: [Bronchitis, not specified as acute or chronic] Resolved: 04-11-2016 12-13-2018 Episodic Fever of unknown origin (2 sources) Fever with chills; Translations: [Fever and chills] Resolved: 04-11-2016 04-11-2016 Episodic Genitourinary symptoms and ill-defined conditions (3 sources) Dysuria; Translations: [Dysuria] 05-26-2022 Episodic Immunizations and screening for infectious disease (3 sources) Anti-cyclic citrullinated peptide antibody positive; Translations: [Other specified abnormal immunological findings in serum] 04-08-2024 Episodic Malaise and fatigue (3 sources) Fatigue; Translations: [Chronic fatigue, unspecified] 07-06-2023 Chronic Osteoporosis (7 sources) Osteoporosis; Translations: [Age-related osteoporosis without current pathological fracture] Onset: 11-02-2024 10-21-2024 Chronic Other aftercare (3 sources) Drug therapy finding; Translations: [[facility] (current) use of systemic steroids] 04-08-2024 Episodic Other circulatory disease (3 sources) Pulmonary congestion ; Translations: [Other specified symptoms and signs involving the circulatory and respiratory systems] 05-26-2022 Episodic Other connective tissue disease (6 sources) Muscle pain; Translations: [Myalgia, unspecified site] 02-05-2024 Episodic Other gastrointestinal disorders (3 sources) Irritable bowel syndrome; Translations: [Irritable bowel syndrome without diarrhea] 07-06-2023 Chronic Other gastrointestinal disorders (1 source) Irritable bowel syndrome without diarrhea; Translations: [Irritable bowel syndrome, unspecified] Onset: 10-21-2024 Chronic Other injuries and conditions due to external causes (3 sources) Laceration - injury; Translations: [Laceration] Resolved: 04-11-2016 04-11-2016 Episodic Comment on above: sutures x 3 to tip o f finger Other lower respiratory disease (5 sources) Cough; Translations: [Cough] 12-13-2018 Episodic Other lower respiratory disease (3 sources) Dry cough; Translations: [Nonproductive cough] 05-26-2022 Episodic Other non-traumatic joint disorders (1 source) Effusion, left wrist; Translations: [Wrist swelling, left] 12-13-2018 Episodic Other non-traumatic joint disorders (1 source) Pain in wrist; Translations: [Wrist pain, acute, left] 12-13-2018 Episodic Other nutritional; endocrine; and metabolic disorders (3 sources) Decrease in appetite; Translations: [Anorexia] 07-06-2023 Episodic Other screening for suspected conditions (not mental disorders or infectious disease) (1 source) Breast neoplasm screening status; Translations: [Encounter for screening mammogram for breast cancer (Renamed from Encounter for screening mammogram for malignant neoplasm of breast)] 12-13-2018 Episodic Other upper respiratory disease (2 sources) Nasal congestion; Translations: [Nasal congestion] 12-13-2018 Episodic Other upper respiratory infections (3 sources) Acute sinusitis; Translations: [Acute sinusitis, unspecified] 05-26-2022 Episodic Regional enteritis and ulcerative colitis (5 sources) Crohn's disease of colon; Translations: [Crohn's disease] Onset: 10-21-2024 12-13-2018 Chronic Residual codes; unclassified (2 sources) Body Mass Index between 19-24, adult; Translations: [Body mass index (BMI) 24.0-24.9, adult] 12-13-2018 Episodic Residual codes; unclassified (4 sources) Postmenopausal state; Translations: [Asymptomatic menopausal state] 12-13-2018 Episodic Residual codes; unclassified (1 source) Family history of cancer of colon; Translations: [Family history of colon cancer] 12-13-2018 Episodic Comment on above: father and brother Residual codes; unclassified (6 sources) Insomnia; Translations: [Insomnia, unspecified] 07-06-2023 Episodic Systemic lupus erythematosus and connective tissue disorders (7 sources) Temporal arteritis; Translations: [Other giant cell arteritis] Onset: 01-28-2025 02-05-2024 Chronic Comment on above: 07/2023 Unclassified (2 sources) Body mass index (BMI) of 20 to 24 Unclassified (5 sources) Nonsmoker; Translations: [Non-smoker] 12-13-2018 Unclassified (5 sources) Unclassified (1 source) Postmenopausal Unclassified (1 source) Crohn's disease of colon without complication Unclassified (1 source) Family history of colon cancer Unclassified (1 source) Encounter for screening mammogram for breast cancer (Renamed from Encounter for screening mammogram for malignant neoplasm of breast) Urinary tract infections (3 sources) Acute urinary tract infection; Translations: [Urinary tract infection, site not specified] 05-26-2022 Episodic Past or Other Problems Problem Classification Problem Date Documented Date Episodic/Chronic Chronic obstructive pulmonary disease and bronchiectasis (2 sources) Chronic obstructive pulmonary disease and bronchiectasis External cause codes: Fall (1 source) Accidental fall ; Translations: [Fall, accidental] 12-13-2018 Other aftercare (1 source) Surgical follow-up; Translations: [Visit for suture removal] Resolved: 04-11-2016 04-11-2016 Episodic Residual codes; unclassified (1 source) Asymptomatic menopausal state; Translations: [Asymptomatic menopausal state] Onset: 05-03-2024 Episodic Unclassified (1 source) BMI 24.0-24.9, adult Unclassified (1 source) Wrist pain, acute, left Unclassified (1 source) Visit for suture removal (V58.32) Unclassified (1 source) Unspecified Diagnosis 12-13-2018 Unclassified (1 source) Wrist swelling, left Unclassified (1 source) Fall, accidental Results Test Name Value Interpretation Reference Range Facility CRPon 01-22-2025 C-REACTIVE PROT 4.12 mg/L High 0.0-3.0 [facility] Comment on above: Performed By: #### L 501.6710, L101.9900 #### [facility] [address] [place], [place], [id number] Erythrocyte Sed Rateon 01-22 SED RATE 6 mm/hr Normal 0-30 [facility] Comment on above: Performed By: #### L 501.6710, L101.9900 #### [facility] [address] [place], [place], [id number] Erythrocyte sedimentation ra teOrdered By: Deirdre Lozano on 01-22-2025 ESR (Bld) [Velocity] 6 mm/h 0-30 [facility] Serum or plasma C reactive p rotein measurement (mass/volume)Ordered By: Deirdre Lozano on 01-22-2025 CRP [Mass/Vol] 4.12 mg/L High 0.0-3.0 [facility] CRPon 11-22-2024 C-REACTIVE PROT 5.07 mg/L High 0.0-3.0 [facility] Comment on above: Performed By: #### L 501.6710, L101.9900 #### [facility] [address] [place], [place], [id number] CRP [Mass/Vol]Ordered By: Addison Lozano on 11-22-2024 C-Reactive Protein Extended Range 5.07 mg/L High 0.0-3.0 [facility] Erythrocyte Sed Rateon 11-22 SED RATE 2 mm/hr Normal 0- [facility] Comment on above: Performed By: #### L [id number], [id number] #### [facility] [address] [place], [place], [id number] Erythrocyte sedimentation ra teOrdered By: Deirdre Lozano on 11-22-2024 ESR (Bld) [Velocity] 2 mm/h 0- [facility] Serum or plasma C reactive p rotein measurement (mass/volume)Ordered By: Deirdre Lozano on 11-22-2024 CRP [Mass/Vol] 5.07 mg/L High 0.0-3.0 [facility] 41-TN-Vrciuin DOrdered By: Renay Vallejo on 10-21-2024 Vitamin D 25-Hydroxy 70.6 ng/mL [facility] Comment on above: Vitamin D 25(OH) Sta tus Range Deficiency <20 ng/mL (50nmol/L) Insufficiency 20 - 30 ng/mL (50 - 75 nmol/L) Sufficiency 30 - 100 ng/mL (75 - 250 nmol/L) Toxicity >100 ng/mL (>250 nmol/L) Absolute lymphocyte countOrd ered By: Shivani Vallejo on 10-21-2024 Lymphocytes Auto (Unsp spec) [#/Vol] 3.10 10*3/uL 0.83-4.51 [facility] Absolute neutrophil countOrd ered By: Shivani Vallejo on 10-21-2024 Neutrophils (Bld) [#/Vol] 5.2 10*3/uL 2.0-7.7 [facility] Albumin to globulin ratioOrd ered By: Shivani Vallejo on 10-21-2024 Albumin/Globulin [Mass ratio] 1.1 {ratio} 0.9-2.4 [facility] Automated lymphocyte count a s percentage of total leukocytesOrdered By: Padminialtagraciakattyjayla Avilabelénrenay on 10-21-2024 Lymphocytes/100 WBC Auto (Unsp spec) 33.9 % 19- [facility] Basophil percentageOrdered B y: Lakshmijayla Avilabelénrenay on 10-21-2024 Basophils/100 WBC (Bld) 0.4 % 0-1 [facility] Bilirubin, totalOrdered By: Lakshmijayla Avilabelénrenay on 10-21-2024 Bilirubin [Mass/Vol] 0.30 mg/dL 0.20-1.00 [facility] Comment on above: For patients on eltr ombopag therapy, use of Dimension [place] TBIL is not recommended. Blood urea nitrogen (BUN)/cr eatinine ratioOrdered By: Padminialtagraciakattyjayla Avilabelénrenay on 10-21-2024 Urea nitrogen/Creatinine [Mass ratio] 18.3 mg/mg 10-20 [facility] CBC W/Diff, Automatedon 09-29 Absolute Lymph 3.10 X10 3/uL Normal 0.83-4.51 [facility] Comment on above: Performed By: #### L 506.1000, [id number], L100.0100 #### [facility] [address] [place], [address] Absolute Neut 5.2 X10 3/uL Normal 2.0-7.7 [facility] Comment on above: Performed By: #### L 506.1000, [id number], L100.0100 #### [facility] [address] [place], [address] Basophils/100 WBC (Bld) 0.4 % Normal 0-1 [facility] Comment on above: Performed By: #### L 506.1000, [id number], L100.0100 #### [facility] [address] [place], [address] Eosinophils/100 WBC (Bld) 1.4 % Normal 0-5 [facility] Comment on above: Performed By: #### L 506.1000, [id number], L100.0100 #### [facility] [address] [place], [address] Erythrocyte distribution width (RBC) [Ratio] 13.2 % Normal 11.6-14.6 [facility] Comment on above: Performed By: #### L 506.1000, [id number], L100.0100 #### [facility] [address] [place], [address] Hematocrit (Bld) [Volume fraction] 44.2 % Normal 37-47 [facility] Comment on above: Performed By: #### L 506.1000, [id number], L100.0100 #### [facility] [address] [place], [address] Hemoglobin (Bld) [Mass/Vol] 14.0 g/dL Normal 12.0-15.0 [facility] Comment on above: Performed By: #### L 506.1000, [id number], L100.0100 #### [facility] [address] [place], [address] IG% 0.400 Normal 0.0-0.9 [facility] Comment on above: Result Comment: IG% - Immature Granulocytes (promyelocytes, myelocytes and metamyelocytes) > 1% indicates that a LEFT SHIFT is Present. Performed By: #### L 506.1000, [id number], L100.0100 #### [facility] [address] [place], [address] Lymphocytes/100 WBC (Bld) 33.9 % Normal 19-41 [facility] Comment on above: Performed By: #### L 506.1000, [id number], L100.0100 #### [facility] [address] [place], [address] MCH (RBC) [Entitic mass] 29.6 pg Normal 27.0-32.0 [facility] Comment on above: Performed By: #### L 506.1000, [id number], L100.0100 #### [facility] [address] [place], [address] MCHC (RBC) [Mass/Vol] 31.7 g/dL Low 32-36 [facility] Comment on above: Performed By: #### L 506.1000, [id number], L100.0100 #### [facility] [address] [place], [address] MCV (RBC) [Entitic vol] 93.4 fL Normal 81-99 [facility] Comment on above: Performed By: #### L 506.1000, [id number], L100.0100 #### [facility] [address] [place], [address] Monocytes/100 WBC (Bld) 6.9 % Normal 0-10 [facility] Comment on above: Performed By: #### L 506.1000, [id number], L100.0100 #### [facility] [address] [place], [address] Neutrophils/100 WBC (Bld) 57.0 % Normal 47-70 [facility] Comment on above: Performed By: #### L 506.1000, [id number], L100.0100 #### [facility] [address] [place], [address] Nucleated RBC (Bld) [#/Vol] 0 10*3/uL Normal 0-5 [facility] Comment on above: Performed By: #### L 506.1000, [id number], L100.0100 #### [facility] [address] [place], [address] Platelet mean volume (Bld) [Entitic vol] 10.1 fL Normal 6.2-12.0 [facility] Comment on above: Performed By: #### L 506.1000, [id number], L100.0100 #### [facility] [address] [place], [address] Platelets (Bld) [#/Vol] 254 10*3/uL Normal 150-450 [facility] Comment on above: Performed By: #### L 506.1000, [id number], L100.0100 #### [facility] [address] [place], [address] RBC (Bld) [#/Vol] 4.73 10*6/uL Normal 4.2-5.4 [facility] Comment on above: Performed By: #### L 506.1000, [id number], L100.0100 #### [facility] [address] [place], [address] RDW SD 45.8 fl High 35.1-43.9 [facility] Comment on above: Performed By: #### L 506.1000, [id number], L100.0100 #### [facility] [address] [place], [address] WBC (Bld) [#/Vol] 9.2 10*3/uL Normal 4.4-11.0 [facility] Comment on above: Performed By: #### L 506.1000, [id number], L100.0100 #### [facility] [address] [place], [address] Carbon dioxide measurementOr dered By: Shivani Vallejo on 10-21-2024 CO2 [Moles/Vol] 29.0 mmol/L 21.0-32.0 [facility] Chloride measurementOrdered By: Shivani Vallejo on 10-21-2024 Chloride [Moles/Vol] 106 mmol/L 98-107 [facility] Comprehensive Metabolic Prof ilon 10-21-2024 Albumin [Mass/Vol] 3.6 g/dL Normal 3.2-5.0 [facility] Comment on above: Performed By: #### L 506.1000, [id number], L100.0100 #### [facility] [address] [place], [address] Albumin/Globulin [Mass ratio] 1.1 {ratio} Normal 0.9-2.4 [facility] Comment on above: Performed By: #### L 506.1000, [id number], L100.0100 #### [facility] [address] [place], [address] ALK P 71 U/L Normal 45-117 [facility] Comment on above: Performed By: #### L 506.1000, [id number], L100.0100 #### [facility] [address] [place], [address] ALT [Catalytic activity/Vol] 39 U/L Normal 13-56 [facility] Comment on above: Performed By: #### L 506.1000, [id number], L100.0100 #### [facility] [address] [place], [address] AST [Catalytic activity/Vol] 21 U/L Normal 15-37 [facility] Comment on above: Performed By: #### L 506.1000, [id number], L100.0100 #### [facility] [address] [place], [address] Bilirubin [Mass/Vol] 0.30 mg/dL Normal 0.20-1.00 [facility] Comment on above: Result Comment: For patients on eltrombopag therapy, use of Dimension [place] TBIL is not recommended. Performed By: #### L 506.1000, [id number], L100.0100 #### [facility] [address] [place], [address] BUN/CRE 18.3 RATIO Normal 10-20 [facility] Comment on above: Performed By: #### L 506.1000, L500.4050, L100.0100 #### [facility] [address] [place], [address] CA,Total 9.7 mg/dL Normal 8.5-10.1 [facility] Comment on above: Performed By: #### L 506.1000, L500.4050, L100.0100 #### [facility] [address] [place], [address] Chloride [Moles/Vol] 106 mmol/L Normal 98-107 [facility] Comment on above: Performed By: #### L 506.1000, L500.4050, L100.0100 #### [facility] [address] [place], [address] CO2 [Moles/Vol] 29.0 mmol/L Normal 21.0-32.0 [facility] Comment on above: Performed By: #### L 506.1000, L500.4050, L100.0100 #### [facility] [address] [place], [address] Creatinine [Mass/Vol] 0.65 mg/dL Normal 0.55-1.02 [facility] Comment on above: Result Comment: The validity of the calculated GFR GFRAA in patients over 70 years has not been determined. Clinical correlation is essential. Performed By: #### L 506.1000, L500.4050, L100.0100 #### [facility] [address] [place], [address] EST GFR - AA 114 mL/min Normal >60 [facility] Comment on above: Result Comment: Afri can [place] GFR Calc Performed By: #### L 506.1000, L500.4050, L100.0100 #### [facility] [address] [place], [address] GAP 6 Normal 5-15 [facility] Comment on above: Performed By: #### L 506.1000, L500.4050, L100.0100 #### [facility] [address] [place], [address] GFR/1.73 sq M.predicted among non-blacks MDRD (S/P/Bld) [Vol rate/Area] 94 mL/min/{1.73_m2} Normal >60 [facility] Comment on above: Result Comment: Non- GFR Calc Performed By: #### L 506.1000, L500.4050, L100.0100 #### [facility] [address] [place], [address] Globulin (S) [Mass/Vol] 3.3 g/dL Normal 2.2-4.2 [facility] Comment on above: Performed By: #### L 506.1000, L500.4050, L100.0100 #### [facility] [address] [place], [address] Glucose [Mass/Vol] 87 mg/dL Normal 74-106 [facility] Comment on above: Performed By: #### L 506.1000, L500.4050, L100.0100 #### [facility] [address] [place], [address] Potassium [Moles/Vol] 3.6 mmol/L Normal 3.5-5.1 [facility] Comment on above: Performed By: #### L 506.1000, L500.4050, L100.0100 #### [facility] [address] [place], [address] Sodium [Moles/Vol] 141 mmol/L Normal 136-145 [facility] Comment on above: Performed By: #### L 506.1000, L500.4050, L100.0100 #### [facility] [address] [place], [address] T PROT 6.9 g/dL Normal 6.4-8.2 [facility] Comment on above: Performed By: #### L 506.1000, L500.4050, L100.0100 #### [facility] [address] [place], [address] Urea nitrogen [Mass/Vol] 12 mg/dL Normal 7-18 [facility] Comment on above: Performed By: #### L 506.1000, L500.4050, L100.0100 #### [facility] [address] [place], [address] Eosinophil percentageOrdered By: Shivani Vallejo on 10-21-2024 Eosinophils/100 WBC (Bld) 1.4 % 0-5 [facility] Erythrocyte distribution wid th ratioOrdered By: Shivani Vallejo on 10-21-2024 Erythrocyte distribution width (RBC) [Ratio] 13.2 % 11.6-14.6 [facility] Erythrocyte distribution wid th standard deviationOrdered By: Shivani Vallejo on 10-21-2024 Erythrocyte distribution width (RBC) [Entitic vol] 45.8 fL High 35.1-43.9 [facility] Erythrocyte distribution width (RBC) [Ratio] 45.8 fl High 35.1-43.9 [facility] Estimated glomerular filtrat ion rate (GFR) AmericanOrdered By: Shivani Vallejo on 10-21-2024 Estimated GFR (MDRD) Amer 114 mL/min >60 [facility] Comment on above: GFR Calc Glomerular filtration rate ( GFR) estimationOrdered By: Shivani Vallejo on 10-21-2024 Estimated GFR (MDRD) Non-Af Amer 94 mL/min >60 [facility] Comment on above: Non- GFR Calc GFR/1.73 sq M.predicted among non-blacks MDRD (S/P/Bld) [Vol rate/Area] 94 mL/min/{1.73_m2} >60 [facility] Comment on above: Non- GFR Calc Glucose measurementOrdered B y: Shivani Vallejo on 10-21-2024 Glucose [Mass/Vol] 87 mg/dL 74-106 [facility] Hematocrit Auto (Bld) [Volum e fraction]Ordered By: Shivani Vallejo on 10-21-2024 Hematocrit (Bld) [Volume fraction] 44.2 % 37-47 [facility] Hemoglobin measurementOrdere d By: Shivani Vallejo on 10-21-2024 Hemoglobin (Bld) [Mass/Vol] 14.0 g/dL 12.0-15.0 [facility] Immature granulocytes/100 WB C Auto (Bld)Ordered By: Shivani Vallejo on 10-21-2024 Immature granulocytes/100 WBC (Bld) 0.400 % 0.0-0.9 [facility] Comment on above: IG% - Immature Granu locytes (promyelocytes, myelocytes and metamyelocytes) > 1% indicates that a LEFT SHIFT is Present. Internal Medicine Office Vis rosibel 10-21-2024 Internal Medicine Office Visit [facility] [address] [place] [address] [place] [address] OFFICE VISIT Date of Service: 10/21/24 MR#: [id number] Acct: [id number] Name: DEYANIRA FELIX Rep #: [id number] : 1950 Provider: Dr. Shivani prado MD Age/Sex: 74/F Location: [facility] Status: Signed Intake Vital Signs 04/08/24 14:35 10/21/24 10:39 Height 5 ft 5 in 5 ft 5 in Weight: 141 lb BMI 23.4 BP 112/58 L Blood Pressure Location Rt brachial Position Sitting Respiration 16 Pulse 83 Pulse Source Monitor Temp 96.6 F L Temp Source Temporal Pulse Oximetry (%) 97 Oxygen Delivery Method room air Intake Visit Reasons: Follow Up Chief Complaint: Follow-up chronic conditions Internet Researcher Required: No Accompanied by: Is patient in pain?: No Allergies formaldehyde Allergy (Verified 10/21/24 10:37) Hives Medications ???Medication ???Instructions ???Recorded ???Confirmed ???Type super food PO DAILY 07/06/23 10/21/24 History calcium carbonate (Calcium 500) 1,000 mg PO DAILY 02/05/24 5 History cholecalciferol (vitamin D3) 125 125 mcg PO DAILY 02/05/24 10/21/24 History mcg (5,000 unit) capsule lysine 1,000 mg tablet 1,000 mg PO DAILY 02/05/24 5 History magnesium 200 mg tablet 400 mg PO DAILY 02/05/24 10/21/24 History prednisone 10 mg tablet 10 mg PO DAILY 02/05/24 10/21/24 H istory Have you fallen in the past year?: No Nurse's Note: [facility] Medical History (Updated 10/21/24 @ 11:[address] Shivani Vallejo MD) Osteoporosis Post-menopausal Long-term corticosteroid use Positive anti-CCP test Myalgia Temporal arteritis Poor appetite Chronic fatigue Insomnia Kidney stones Family History Other Colon cancer Heart disease Kidney disease Myocardial infarction Osteoporosis Social History Smoking Status: Never smoker alcohol intake: never substance use type: does not use what type of physical activity do you participate in: walking frequency: daily HPI HPI Chief Complaint: Follow-up chronic conditions Details: DEYANIRA FELIX, is a 74 F who presents to the office today for follow-up of her chronic conditions. No acute concerns at this time. She states that she feels well. Continues to follow-up with rheumatology and tapering down on prednisone, now on 10 mg daily. No concerning side effects. History of osteoporosis. Recommendation was for Fosamax however a is not open to medication at this time and would like to continue on calcium and vitamin D supplements. Other chronic medical conditions are stable. ROS Const Constitutional: No body ache, excessive sweating, fatigue, fever(s), frequent falls, headache(s), snoring, weakness, weight change, sleep problems or change in appetite Eyes Eyes: No blurry vision, change in vision, floaters, visual disturbances, eye pain or Light sensitivity ENT ENT: No abnormal hearing, ear or mastoid pain, tinnitus, balance problems, nosebleed/epistaxis , nasal congestion, headache(s), neck pain or sore throat Resp Respiratory: No cough, excessive phlegm production, pain on inspiration, shortness of breath, snoring or wheezing Cardio Cardiology: No chest pain at rest, chest pain with exertion, excessive sweating, shortness of breath, dyspnea on exertion, lightheadedness, orthopnea or palpitations Gastro GI: No abdominal pain, change in bowel habits, constipation, cramping, diarrhea, nausea/dyspepsia or vomiting Genitourinary-Femal e: No burning urination, painful urination, urinary incontinence, urinary frequency, blood in urine, suprapubic fullness, side pain, abnormal periods or pelvic pain Musc Musculoskeletal: No abnormal gait, joint pain, back pain, limited range of motion, muscle cramps, neck pain, numbness, stiffness, tingling or Arthritis Skin Skin: No dry skin, redness, excessive hair growth, yellowing of the eye, lesions, itchy eyes, rash or wounds Neuro Neurology: No abnormal gait, abnormal hearing, abnormal speech, confusion, unsteady gait/balance, dizziness, weakness, frequent falls, headache(s), memory loss, numbness, tingling or visual disturbances Psych Psychiatric: No anxiety, No change in appetite, No confusion, No depression, No memory loss and No Thoughts of harming yourself/Others Endo Endocrine: No cold intolerance, excessive sweating, fatigue, flushing, heat intolerance, increased thirst/drinking, increased hunger or weight change Aller/Imm Allergy/Immunologic : No itchy eyes, seasonal allergy symptoms, hives or wheezing Mukund/Lymp Hematologic/Lymphat ic: No easy bleeding, easy bruising or enlarged lymph nodes Exam Const General: cooperative, comfortable and no acute distress Orientation: alert, (more content not included)... Normal [facility] - Chemistry and C hemistry - challengeOrdered By: Shivani Vallejo on 10-21-2024 AST [Catalytic activity/Vol] 21 U/L 15-37 [facility] Lymphocytes Auto (Unsp spec) [#/Vol]Ordered By: Shivani Vallejo on 10-21-2024 Lymphocytes (Bld) [#/Vol] 3.10 10*3/uL 0.83-4.51 [facility] Lymphocytes/100 WBC Auto (Un sp spec)Ordered By: Lakshmijayla Avilabelénrenay on 10-21-2024 Lymphocytes/100 WBC (Bld) 33.9 % 19-41 [facility] MCV (mean corpuscular volume ) determinationOrdered By: Shivani Avilabelénrenay on 10-21-2024 MCV (RBC) [Entitic vol] 93.4 fL 81-99 [facility] Mean corpuscular hemoglobin (MCH) determinationOrdered By: Shivnai Avilabelénrenay on 10-21-2024 MCH (RBC) [Entitic mass] 29.6 pg 27.0-32.0 [facility] Mean corpuscular hemoglobin concentration (MCHC) determinationOrdered By: Shivani Avilabelénrenay on 10-21-2024 MCHC (RBC) [Mass/Vol] 31.7 g/dL Low 32-36 [facility] Mean platelet volume determi nationOrdered By: Chriskattyjayla Avilabelénrenay on 10-21-2024 Platelet mean volume (Bld) [Entitic vol] 10.1 fL 6.2-12.0 [facility] Monocyte percentageOrdered B y: Padminialtagraciakattyjayla Avilabelénrenay on 10-21-2024 Monocytes/100 WBC (Bld) 6.9 % 0-10 [facility] Neutrophil percentageOrdered By: Shivani Vallejo on 10-21-2024 Neutrophils/100 WBC (Bld) 57.0 % 47-70 [facility] Nucleated red blood cell per centageOrdered By: Shivani Vallejo on 10-21-2024 Nucleated RBC/100 WBC (Bld) [Ratio] 0 % 0-5 [facility] Platelet countOrdered By: Padmini alyciajayla Avilabelénrenay on 10-21-2024 Platelets (Bld) [#/Vol] 254 10*3/uL 150-450 [facility] Potassium measurementOrdered By: Shivani Vallejo on 10-21-2024 Potassium [Moles/Vol] 3.6 mmol/L 3.5-5.1 [facility] RBC Auto (Bld) [#/Vol]Ordere d By: Shivani Vallejo on 10-21-2024 RBC (Bld) [#/Vol] 4.73 10*6/uL 4.2-5.4 [facility] Serum anion gap measurementO rdered By: Shivani Vallejo on 10-21-2024 Anion gap [Moles/Vol] 6 mmol/L 5-15 [facility] Serum globulin measurementOr dered By: Shivani Vallejo on 10-21-2024 Globulin (S) [Mass/Vol] 3.3 g/dL 2.2-4.2 [facility] Serum or plasma alanine clifford otransferase (ALT) measurementOrdered By: Shivani Vallejo on 10-21-2024 ALT [Catalytic activity/Vol] 39 U/L 13-56 [facility] Serum or plasma albumin gaye urement (mass/volume)Ordered By: Shivani Vallejo on 10-21-2024 Albumin [Mass/Vol] 3.6 g/dL 3.2-5.0 [facility] Serum or plasma alkaline hernan sphatase measurementOrdered By: Shivani Vallejo on 10-21-2024 ALP [Catalytic activity/Vol] 71 U/L 45-117 [facility] Serum or plasma calcium gaye urement (mass/volume)Ordered By: Shivani Vallejo on 10-21-2024 Calcium [Mass/Vol] 9.7 mg/dL 8.5-10.1 [facility] Serum or plasma creatinine m easurement (mass/volume)Ordered By: Shivani Vallejo on 10-21-2024 Creatinine [Mass/Vol] 0.65 mg/dL 0.55-1.02 [facility] Comment on above: The validity of the calculated GFR & GFRAA in patients over 70 years has not been determined. Clinical correlation is essential. Serum or plasma urea nitroge n measurement (mass/volume)Ordered By: Shivani Vallejo on 10-21-2024 Urea nitrogen [Mass/Vol] 12 mg/dL 7-18 [facility] Sodium levelOrdered By: Chris Vallejo on 10-21-2024 Sodium [Moles/Vol] 141 mmol/L 136-145 [facility] Total proteinOrdered By: Noel oly Austinbelénrenay on 10-21-2024 Protein [Mass/Vol] 6.9 g/dL 6.4-8.2 [facility] Vitamin D,25 Hydroxyon 10-21 Vitamin D 25-OH 70.6 ng/mL Normal [facility] Comment on above: Result Comment: Diamond min D 25(OH) Status Range Deficiency <20 ng/mL (50nmol/L) Insufficiency 20 - 30 ng/mL (50 - 75 nmol/L) Sufficiency 30 - 100 ng/mL (75 - 250 nmol/L) Toxicity >100 ng/mL (>250 nmol/L) Performed By: #### L 506.1000, L500.4050, L100.0100 #### [facility] [place], [address] White blood cell (WBC) count Ordered By: Shivani Vallejo on 10-21-2024 WBC (Bld) [#/Vol] 9.2 10*3/uL 4.4-11.0 [facility] C-reactive protein measureme nt by high sensitivity methodOrdered By: Deirdre Lozano on 10-03-2024 C-Reactive Protein Extended Range 8.49 mg/L High 0.0-3.0 [facility] Comment on above: C-Reactive Protein ( CRP) provides useful information for thediagnosis, therapy and monitoring of inflammatory processesand associated diseases. For the evaluation of Relative Riskfor Cardiovascular Disease, a High Sensitivity CRP (HSCRP)should be ordered. C-reactive protein measurement by high sensitivity method 8.49 mg/L High 0.0-3.0 [facility] Comment on above: C-Reactive Protein ( CRP) provides useful information for thediagnosis, therapy and monitoring of inflammatory processesand associated diseases. For the evaluation of Relative Riskfor Cardiovascular Disease, a High Sensitivity CRP (HSCRP)should be ordered. CRPon 10-03-2024 C-REACTIVE PROT 8.49 mg/L High 0.0-3.0 [facility] Comment on above: Result Comment: C-Re active Protein (CRP) provides useful information for the diagnosis, therapy and monitoring of inflammatory processes and associated diseases. For the evaluation of Relative Risk for Cardiovascular Disease, a High Sensitivity CRP (HSCRP) should be ordered. Performed By: #### L 501.6710, L101.9900 #### [facility] [address] [place], [address] Erythrocyte Sed Rateon 10-03 SED RATE 14 mm/hr Normal 0-30 [facility] Comment on above: Performed By: #### L 501.6710, L101.9900 #### [facility] [address] [place], [address] Erythrocyte sedimentation ra teOrdered By: Deirdre Lozano on 10-03-2024 ESR (Bld) [Velocity] 14 mm/h 0-30 [facility] C-reactive protein measureme nt by high sensitivity methodOrdered By: Deirdre Lozano on 08-03-2024 C-Reactive Protein Extended Range 4.99 mg/L High 0.0-3.0 [facility] Comment on above: C-Reactive Protein ( CRP) provides useful information for thediagnosis, therapy and monitoring of inflammatory processesand associated diseases. For the evaluation of Relative Riskfor Cardiovascular Disease, a High Sensitivity CRP (HSCRP)should be ordered. CRPon 08-03-2024 C-REACTIVE PROT 4.99 mg/L High 0.0-3.0 [facility] Comment on above: Result Comment: C-Re active Protein (CRP) provides useful information for the diagnosis, therapy and monitoring of inflammatory processes and associated diseases. For the evaluation of Relative Risk for Cardiovascular Disease, a High Sensitivity CRP (HSCRP) should be ordered. Performed By: #### L 501.6710, L101.9900 #### [facility] [address] [place], [address] Erythrocyte Sed Rateon 08-03 SED RATE 7 mm/hr Normal 0-[address] [place] [address] Comment on above: Performed By: #### L 501.6710, L101.9900 #### [facility] [address] [place], [place], [address] Erythrocyte sedimentation ra teOrdered By: Deirdre Lozano on 08-03-2024 ESR (Bld) [Velocity] 7 mm/h 0- [facility] C-reactive protein measureme nt by high sensitivity methodOrdered By: Deirdre Lozano on 07-06-2024 C-Reactive Protein Extended Range 5.18 mg/L High 0.0-3.0 [facility] Comment on above: C-Reactive Protein ( CRP) provides useful information for thediagnosis, therapy and monitoring of inflammatory processesand associated diseases. For the evaluation of Relative Riskfor Cardiovascular Disease, a High Sensitivity CRP (HSCRP)should be ordered. CRPon 07-06-2024 C-REACTIVE PROT 5.18 mg/L High 0.0-3.0 [facility] Comment on above: Result Comment: C-Re active Protein (CRP) provides useful information for the diagnosis, therapy and monitoring of inflammatory processes and associated diseases. For the evaluation of Relative Risk for Cardiovascular Disease, a High Sensitivity CRP (HSCRP) should be ordered. Performed By: #### L 501.6710, L101.9900 #### [facility] [address] [place], [place], [id number] ([phone]) Erythrocyte Sed Rateon 07-06 SED RATE 17 mm/hr Normal - [facility] Comment on above: Performed By: #### L 501.6710, L101.9900 #### [facility] [address] [place], [address] Erythrocyte sedimentation ra teOrdered By: Deirdre Lozano on 07-06-2024 ESR (Bld) [Velocity] 17 mm/h 0-30 [facility] CRPon 05-27-2024 C-REACTIVE PROT 4.38 mg/L High 0.0-3.0 [facility] Comment on above: Result Comment: C-Re active Protein (CRP) provides useful information for the diagnosis, therapy and monitoring of inflammatory processes and associated diseases. For the evaluation of Relative Risk for Cardiovascular Disease, a High Sensitivity CRP (HSCRP) should be ordered. Performed By: #### L 101.9900, L501.6710 #### [facility] [address] [place], [address] Erythrocyte Sed Rateon 05-27 SED RATE 6 mm/hr Normal 0-30 [facility] Comment on above: Performed By: #### L 101.9900, L501.6710 #### [facility] [address] [place], [address] Dexa Bone Density Studyon Dexa Bone Density Study [facility] Services [address] [place] [id number] Dexa Bone Density Study MR#: [id number] Acct: [id number] Name: DEYANIRA FELIX Rep #: [id number] : 1950 F 74 From: Natan washington MD PCP: Dr. Shivani Vallejo MD Status: [facility] Study: Dexa Bone Density Study Date of Exam: 04/25/24 Exam# [id number] Ordering Dr: Shivani Vallejo MD -[id number] STUDY: DUAL ENERGY X-RAY ABSORPTIOMETRY / DXA REASON FOR EXAM: Female, 74 years old. Post - Menopausal TECHNIQUE: Bone Mineral Density (BMD) measurements of lumbar spine and bilateral hips were obtained. COMPARISON: None. FINDINGS: Lumbar Spine (L1-L4): g/cm2 (0.730) / T-score (-2.9) / Z-score (-0.6) Findings are suggestive of osteoporosis with a high fracture risk. Left Femur Total: g/cm2 (0.733) / T-score (-1.7) / Z-score (0.0) Left Femoral Neck: g/cm2 (0.655) / T-score (-1.7) / Z-score (0.3) Right Femur Total: g/cm2 (0.691) / T-score (-2.1) / Z-score (-0.3) Right Femoral Neck: g/cm2 (0.577) / T-score (-2.4) / Z-score (-0.4) BD/Dexa Bone Density Study IMPRESSION: The patient is considered osteoporotic as outlined below according to World [employer] Organization (WHO) criteria with a high fracture risk. Reference Information: The T-score is the number of standard deviations above or below the standard which is normal for young adults at their peak bone mineral density. The World Health Organization (WHO) interprets the T-scores as follows: Above -1 Normal bone density Between -1 and -2.5 Osteopenia Equal to / or below -2.5 Osteoporosis As a practical clinical guideline, osteopenia may be graded as follows: Mild -1 through -1.5 Moderate -1.6 through -2.0 Severe -2.1 through -2.4 The Z-score is the number of standard deviations above or below age-matched controls. A Z-score of less than -1.5 would be considered abnormal. References: 1. NIH Osteoporosis and Related Bone Diseases www osteo.org 2. International Society for Clinical Densitometry www iscd.org 3. National Osteoporosis Foundation www nof.org Electronically Signed: Natan Dave MD at 13:24 EDT , CC: Dr. Shivani Vallejo MD [employer]: Signed Normal [facility] CRPon 04-13-2024 C-REACTIVE PROT 11.80 mg/L High 0.0-3.0 [facility] Comment on above: Result Comment: C-Re active Protein (CRP) provides useful information for the diagnosis, therapy and monitoring of inflammatory processes and associated diseases. For the evaluation of Relative Risk for Cardiovascular Disease, a High Sensitivity CRP (HSCRP) should be ordered. Performed By: #### L 501.6710, L101.9900 #### [facility] [address] [place], [address] Erythrocyte Sed Rateon 04-13 SED RATE 11 mm/hr Normal 0-30 [facility] Comment on above: Performed By: #### L 501.6710, L101.9900 #### [facility] [address] [place], [address] Internal Medicine Office Vis iton 04-08-2024 Internal Medicine Office Visit [facility] [address] [place] [address] [place] [address] OFFICE VISIT Date of Service: 04/08/24 MR#: [id number] Acct: [id number] Name: DEYANIRA FELIX Rep #: [id number] : 1950 Provider: Dr. Sihvani prado MD Age/Sex: 74/F Location[place] [facility] Status: Signed Intake Vital Signs 02/05/24 13:33 04/08/24 14:35 Height 5 ft 5 in 5 ft 5 in Weight: 141 lb 140 lb 8 oz BMI 23.4 23.3 BP 148/70 H 140/68 H Blood Pressure Location Lt brachial Lt brachial Position Sitting Sitting Respiration 16 16 Pulse 87 93 Pulse Source Monitor Monitor Temp 97.6 F L 97.6 F L Temp Source Temporal Temporal Pulse Oximetry (%) 96 95 Oxygen Delivery Method room air room air Intake Visit Reasons: 2 m fu Chief Complaint: 2 M U Internet Researcher Required: No Accompanied by: Self Is patient in pain?: No Allergies formaldehyde Allergy (Verified 04/08/24 14:31) Hives Medications ???Medication ???Instructions ???Recorded ???Confirmed ???Type mirtazapine 7.5 mg tablet 7.5 mg PO QHS PRN Insomina #90 tabs 07/06/23 04/08/24 Rx super food PO DAILY 07/06/23 04/08/24 History calcium carbonate (Calcium 500) 1,000 mg PO DAILY 02/05/24 04/08/24 History cholecalciferol (vitamin D3) 125 125 mcg PO DAILY 02/05/24 04/08/24 History mcg (5,000 unit) capsule lysine 1,000 mg tablet 1,000 mg PO DAILY 02/05/24 04/08/24 History magnesium 200 mg tablet 400 mg PO DAILY 02/05/24 04/08/24 History prednisone 10 mg tablet 10 mg PO DAILY 02/05/24 04/08/24 History prednisone 5 mg tablet 2.5 mg PO DAILY 02/05/24 04/08/24 History Have you fallen in the past year?: No PFSH Medical History (Updated 04/08/24 @ 16:[address] Shivani Vallejo MD) Post-menopausal Long-term corticosteroid use Positive anti-CCP test Myalgia Temporal arteritis Poor appetite Chronic fatigue Insomnia Kidney stones Family History Other Colon cancer Heart disease Kidney disease Myocardial infarction Osteoporosis Social History Smoking Status: Never smoker alcohol intake: never substance use type: does not use what type of physical activity do you participate in: walking frequency: daily HPI HPI Chief Complaint: 2 M U Details: DEYANIRA FELIX, is a 74 F who presents to the office today for follow-up. No acute concerns at this time. She states that her muscle pain is a lot better. Has been able to walk more. Established with rheumatology locally and recommendation is for Actemra. She has questions/concerns about this. Recent labs reviewed and increase in ESR and CRP noted. ROS Const Constitutional: No body ache, chills, excessive sweating, fatigue, fever(s), frequent falls, headache(s), snoring, weakness or change in appetite Eyes Eyes: No blurry vision, change in vision, floaters, visual disturbances, eye pain or Light sensitivity ENT ENT: No abnormal hearing, ear or mastoid pain, tinnitus, balance problems, nosebleed/epistaxis , nasal congestion, headache(s), neck pain or sore throat Resp Respiratory: No cough, excessive phlegm production, pain on inspiration, shortness of breath, snoring or wheezing Cardio Cardiology: No chest pain at rest, chest pain with exertion, excessive sweating, dyspnea on exertion, lightheadedness, orthopnea or palpitations Gastro GI: No abdominal pain, change in bowel habits, constipation, cramping, diarrhea, nausea/dyspepsia or vomiting Genitourinary-Femal e: No burning urination, painful urination, urinary incontinence, urinary frequency, suprapubic fullness or side pain Musc Musculoskeletal: No abnormal gait, joint pain, back pain, limited range of motion, muscle cramps, muscle weakness, neck pain or numbness Skin Skin: No dry skin, redness, excessive hair growth, yellowing of the eye, lesions, itchy eyes, rash or wounds Neuro Neurology: No abnormal gait, abnormal hearing, behavioral changes, unsteady gait/balance, weakness, frequent falls, headache(s), memory loss, numbness or visual disturbances Psych Psychiatric: No anxiety, No behavioral changes, No change in appetite, No depression, No memory loss and No Thoughts of harming yourself/Others Endo Endocrine: No cold intolerance, excessive sweating, fatigue, flushing, heat intolerance, increased thirst/drinking or increased hunger Aller/Imm Allergy/Immunologic : No itchy eyes, seasonal allergy symptoms, hives or wheezing Mukund/Lymp Hematologic/Lymphat ic: No easy bleeding or easy bruising Exam Const General: cooperative, comfortable and no acute distress Orientation: alert, awake and oriented x3 HENMT Head: normal to inspection, normocephalic and atraumatic Ears: hearing grossly normal bilaterally Eyes General: appearance normal, both e (more content not included)... Normal [facility] CCP IgG Antibodieson 024 CCP IgG Ab. 27 units High 0-19 [facility] Comment on above: Result Comment: Nega tive <20 Weak positive 20 - 39 Moderate positive 40 - 59 Strong positive >59 Performed at: - [facility] [id number] [employer] Worker: Liam Chong PhD, Phone: [phone] Performed By: #### L 515.0597, L114.8080 #### [facility] [place], [address] Quantiferon TB-Gold+on 03-29 QFT MITOGEN SANDY > 10.00 Normal . [facility] Comment on above: Performed By: #### L 501.6710, L101.9900 #### [facility] [address] [place], [address] QFT NIL VALUE 0.02 IU/mL Normal . [facility] Comment on above: Performed By: #### L 501.6710, L101.9900 #### [facility] [address] [place], [address] QFT TB GOLD+ Comment Normal . [facility] Comment on above: Result Comment: Raul tiFERON-TB Gold Plus is a qualitative indirect test for M tuberculosis infection (including disease) and is intended for use in conjunction with risk assessment, radiography, and other medical and diagnostic evaluations. The QuantiFERON-TB Gold Plus result is determined by subtracting the Nil value from either TB antigen (Ag) value. The Mitogen tube serves as a control for the test. Performed By: #### L 501.6710, L101.9900 #### [facility] [address] [place], [address] QFT TB POS CRIT Negative Normal Negative [facility] Comment on above: Result Comment: No r esponse to M tuberculosis antigens detected. Infection with M tuberculosis is unlikely, but high risk individuals should be considered for additional testing (ATS/IDSA/CDC Clinical Practice Guidelines, 2017). The reference range is an Antigen minus Nil result of <0.35 IU/mL. The specimen received for QuantiFERON testing was incubated by the ordering institution. Specific procedures outlined in our Directory of Services and in the package insert for the QuantiFERON Gold (In Tube) test must be followed to enable for proper stimulation of cells for the production of interferon gamma. Chemiluminescence immunoassay methodology Performed By: #### L 501.6710, L101.9900 #### [facility] [address] [place], [address] QFT TB1+ AG SANDY 0.02 IU/mL Normal . [facility] Comment on above: Performed By: #### L 501.6710, L101.9900 #### [facility] [address] [place], [address] QFT TB2+ AG SANDY 0.03 IU/mL Normal . [facility] Comment on above: Performed By: #### L 501.6710, L101.9900 #### [facility] [address] [place], [address] CBC W/Diff, Automatedon 07-3 Absolute Lymph 1.84 X10 3/uL Normal 0.83-4.51 [facility] Comment on above: Performed By: #### L 101.9900, L501.6710 #### [facility] [address] [place], [address] Absolute Neut 7.6 X10 3/uL Normal 2.0-7.7 [facility] Comment on above: Performed By: #### L 101.9900, L501.6710 #### [facility] [address] [place], [address] Basophils/100 WBC (Bld) 0.4 % Normal 0-1 [facility] Comment on above: Performed By: #### L 101.9900, L501.6710 #### [facility] [address] [place], [address] Eosinophils/100 WBC (Bld) 0.6 % Normal 0-5 [facility] Comment on above: Performed By: #### L 101.9900, L501.6710 #### [facility] [address] [place], [address] Erythrocyte distribution width (RBC) [Ratio] 12.3 % Normal 11.6-14.6 [facility] Comment on above: Performed By: #### L 101.9900, L501.6710 #### [facility] [address] [place], [address] Hematocrit (Bld) [Volume fraction] 40.2 % Normal 37-47 [facility] Comment on above: Performed By: #### L 101.9900, L501.6710 #### [facility] [address] [place], [address] Hemoglobin (Bld) [Mass/Vol] 12.8 g/dL Normal 12.0-15.0 [facility] Comment on above: Performed By: #### L 101.9900, L501.6710 #### [facility] [address] [place], [address] IG% 0.500 Normal 0.0-0.9 [facility] Comment on above: Result Comment: IG% - Immature Granulocytes (promyelocytes, myelocytes and metamyelocytes) > 1% indicates that a LEFT SHIFT is Present. Performed By: #### L 101.9900, L501.6710 #### [facility] [address] [place], [address] Lymphocytes/100 WBC (Bld) 18.1 % Low 19-41 [facility] Comment on above: Performed By: #### L 101.9900, L501.6710 #### [facility] [address] [place], [address] MCH (RBC) [Entitic mass] 29.1 pg Normal 27.0-32.0 [facility] Comment on above: Performed By: #### L 101.9900, L501.6710 #### [facility] [address] [place], [address] MCHC (RBC) [Mass/Vol] 31.8 g/dL Low 32-36 [facility] Comment on above: Performed By: #### L 101.9900, L501.6710 #### [facility] [address] [place], [address] MCV (RBC) [Entitic vol] 91.4 fL Normal 81-99 [facility] Comment on above: Performed By: #### L 101.9900, L501.6710 #### [facility] [address] [place], [address] Monocytes/100 WBC (Bld) 5.4 % Normal 0-10 [facility] Comment on above: Performed By: #### L 101.9900, L501.6710 #### [facility] [address] [place], [address] Neutrophils/100 WBC (Bld) 75.0 % High 47-70 [facility] Comment on above: Performed By: #### L 101.9900, L501.6710 #### [facility] [address] [place], [address] Nucleated RBC (Bld) [#/Vol] 0 10*3/uL Normal 0-5 [facility] Comment on above: Performed By: #### L 101.9900, L501.6710 #### [facility] [address] [place], [address] Platelet mean volume (Bld) [Entitic vol] 9.6 fL Normal 6.2-12.0 [facility] Comment on above: Performed By: #### L 101.9900, L501.6710 #### [facility] [address] [place], [address] Platelets (Bld) [#/Vol] 278 10*3/uL Normal 150-450 [facility] Comment on above: Performed By: #### L 101.9900, L501.6710 #### [facility] [address] [place], [address] RBC (Bld) [#/Vol] 4.40 10*6/uL Normal 4.2-5.4 [facility] Comment on above: Performed By: #### L 101.9900, L501.6710 #### [facility] [address] [place], [address] RDW SD 41.3 fl Normal 35.1-43.9 [facility] Comment on above: Performed By: #### L 101.9900, L501.6710 #### [facility] [address] [place], [address] WBC (Bld) [#/Vol] 10.2 10*3/uL Normal 4.4-11.0 [facility] Comment on above: Performed By: #### L 101.9900, L501.6710 #### [facility] [address] [place], [address] CRPon 03-27-2024 C-REACTIVE PROT 19.40 mg/L High 0.0-3.0 [facility] Comment on above: Result Comment: C-Re active Protein (CRP) provides useful information for the diagnosis, therapy and monitoring of inflammatory processes and associated diseases. For the evaluation of Relative Risk for Cardiovascular Disease, a High Sensitivity CRP (HSCRP) should be ordered. Performed By: #### L 501.6710, L101.9900 #### [facility] [address] [place], [address] Comprehensive Metabolic Prof ilon 03-27-2024 Albumin [Mass/Vol] 3.4 g/dL Normal 3.2-5.0 [facility] Comment on above: Performed By: #### L 101.9900, L501.6710 #### [facility] [address] [place], [address] Albumin/Globulin [Mass ratio] 1.0 {ratio} Normal 0.9-2.4 [facility] Comment on above: Performed By: #### L 101.9900, L501.6710 #### [facility] [address] [place], [address] ALK P 68 U/L Normal 45-117 [facility] Comment on above: Performed By: #### L 101.9900, L501.6710 #### [facility] [address] [place], [address] ALT [Catalytic activity/Vol] 27 U/L Normal 13-56 [facility] Comment on above: Performed By: #### L 101.9900, L501.6710 #### [facility] [address] [place], [address] AST [Catalytic activity/Vol] 19 U/L Normal 15-37 [facility] Comment on above: Performed By: #### L 101.9900, L501.6710 #### [facility] [address] [place], [address] Bilirubin [Mass/Vol] 0.30 mg/dL Normal 0.20-1.00 [facility] Comment on above: Result Comment: For patients on eltrombopag therapy, use of Dimension [place] TBIL is not recommended. Performed By: #### L 101.9900, L501.6710 #### [facility] [address] [place], [address] BUN/CRE 27.1 RATIO High 10-20 [facility] Comment on above: Performed By: #### L 101.9900, L501.6710 #### [facility] [address] [place], [address] CA,Total 9.2 mg/dL Normal 8.5-10.1 [facility] Comment on above: Performed By: #### L 101.9900, L501.6710 #### [facility] [address] [place], [address] Chloride [Moles/Vol] 106 mmol/L Normal 98-107 [facility] Comment on above: Performed By: #### L 101.9900, L501.6710 #### [facility] [address] [place], [address] CO2 [Moles/Vol] 27.0 mmol/L Normal 21.0-32.0 [facility] Comment on above: Performed By: #### L 101.9900, L501.6710 #### [facility] [address] [place], [address] Creatinine [Mass/Vol] 0.59 mg/dL Normal 0.55-1.02 [facility] Comment on above: Result Comment: The validity of the calculated GFR GFRAA in patients over 70 years has not been determined. Clinical correlation is essential. Performed By: #### L 101.9900, L501.6710 #### [facility] [address] [place], [address] EST GFR - AA 128 mL/min Normal >60 [facility] Comment on above: Result Comment: Afri can [place] GFR Calc Performed By: #### L 101.9900, L501.6710 #### [facility] [address] [place], [address] GAP 5 Normal 5-15 [facility] Comment on above: Performed By: #### L 101.9900, L501.6710 #### [facility] [address] [place], [address] GFR/1.73 sq M.predicted among non-blacks MDRD (S/P/Bld) [Vol rate/Area] 106 mL/min/{1.73_m2} Normal >60 [facility] Comment on above: Result Comment: Non- GFR Calc Performed By: #### L 101.9900, L501.6710 #### [facility] [address] [place], [address] Globulin (S) [Mass/Vol] 3.5 g/dL Normal 2.2-4.2 [facility] Comment on above: Performed By: #### L 101.9900, L501.6710 #### [facility] [address] [place], [address] Glucose [Mass/Vol] 102 mg/dL Normal 74-106 [facility] Comment on above: Result Comment: Fast ing Glucose result from 100 to 125 mg/dL suggests IMPAIRED HOMEOSTASIS per A.D.A. criteria. Performed By: #### L 101.9900, L501.6710 #### [facility] [address] [place], [address] Potassium [Moles/Vol] 3.8 mmol/L Normal 3.5-5.1 [facility] Comment on above: Performed By: #### L 101.9900, L501.6710 #### [facility] [address] [place], [address] Sodium [Moles/Vol] 138 mmol/L Normal 136-145 [facility] Comment on above: Performed By: #### L 101.9900, L501.6710 #### [facility] [address] [place], [address] T PROT 6.9 g/dL Normal 6.4-8.2 [facility] Comment on above: Performed By: #### L 101.9900, L501.6710 #### [facility] [address] [place], [address] Urea nitrogen [Mass/Vol] 16 mg/dL Normal 7-18 [facility] Comment on above: Performed By: #### L 101.9900, L501.6710 #### [facility] [address] [place], [address] Erythrocyte Sed Rateon 03-27 SED RATE 22 mm/hr Normal 0-30 [facility] Comment on above: Performed By: #### L 101.9900, L501.6710 #### [facility] [address] [place], [address] Hepatitis B Surface Antibody on 03-27-2024 HEP B Surf Ab Non-Reactive Normal [facility] Comment on above: Result Comment: Non Reactive: Inconsistent with immunity less than <10 mIU/mL Reactive: Consistent with immunity greater than or equal to 10 mIU/mL Performed By: #### L 501.6710, L101.9900 #### [facility] [address] [place], [address] Hepatitis B Surface Antigeno n 03-27-2024 HEP B Surf Ag Non-Reactive Normal Nonreactive [facility] Comment on above: Performed By: #### L 501.6710, L101.9900 #### [facility] [address] [place], [address] Hepatitis C Antibodyon 03-27 Hepatitis C AB Non-Reactive Normal Nonreactive [facility] Comment on above: Result Comment: Non Reactive: < 0.8 Equivocal: >/= 0.8 to < 1.0 Reactive: >/= 1.0 The CDC requires that a reactive/equivocal HCV antibody result be sent out for confirmation. HCV Quant by PCR testing. Performed By: #### L 501.6710, L101.9900 #### [facility] [address] [place], [address] Pelvis 1 or 2 Viewson 2023 Pelvis 1 or 2 Views [facility] Imaging Services [address] [place] [address] Pelvis 1 or 2 Views MR#: [id number] Acct: [id number] Name: DEYANIRA FELIX Rep #: [id number] : 1950 F [id number] From: Herb awad MD PCP: Dr. Shivani Vallejo MD Status: REG CLI Study: Pelvis 1 or 2 Views Date of Exam: 03/27/24 Exam# [id number] Ordering Dr: Deirdre Lozano MD -[id number] INDICATION: OA EXAMINATION/TECHNIQ UE: X-RAY - XR Pelvis 1 or 2 Views COMPARISON: Prior study dated: 05/01/2019 FINDINGS: PELVIC BONES: No displaced fracture, destructive or sclerotic lesions. Note that overlapping bowel shadows may however obscure fine detail. Sacroiliac joints are unremarkable. No widening of the pubic symphysis. HIPS: The hips are well aligned. Mild joint space narrowing bilaterally with subchondral sclerosis present. Small osteophytes. No displaced fracture seen in this frontal view. SOFT TISSUES: No soft tissue swelling or gas. Calcification centrally in the pelvis likely associated with fibroids. RAD/Pelvis 1 or 2 Views IMPRESSION: No evidence of displaced pelvic or hip fracture. Mild degenerative change at both hips. Electronically Signed: Herb Priest MD at 23:33 EDT Reading Location ID and State: [facility] / [place] Tel , Service support , CC: Dr. Shivani Vallejo MD; Dr. Deirdre Lozano MD [employer]: Signed Normal [facility] Rheumatoid Factoron 03-27-20 24 RHEUMATOID FAC < 10.0 Normal <15 [facility] Comment on above: Performed By: #### L 501.6710, L101.9900 #### [facility] [address] [place], [place], [id number] CBC W/Diff, Automatedon 07-0 -2023 Absolute Lymph 1.85 X10 3/uL Normal 0.83-4.51 [facility] Comment on above: Performed By: #### L 101.9900, L501.6710 #### [facility] [address] [place], [address] Absolute Neut 6.1 X10 3/uL Normal 2.0-7.7 [facility] Comment on above: Performed By: #### L 101.9900, L501.6710 #### [facility] [address] [facility] [place], [address] Basophils/100 WBC (Bld) 0.6 % Normal 0-1 [facility] Comment on above: Performed By: #### L 101.9900, L501.6710 #### [facility] [address] [place], [address] Eosinophils/100 WBC (Bld) 0.5 % Normal 0-5 [facility] Comment on above: Performed By: #### L 101.9900, L501.6710 #### [facility] [address] [place], [address] Erythrocyte distribution width (RBC) [Ratio] 12.0 % Normal 11.6-14.6 [facility] Comment on above: Performed By: #### L 101.9900, L501.6710 #### [facility] [address] [place], [address] Hematocrit (Bld) [Volume fraction] 42.3 % Normal 37-47 [facility] Comment on above: Performed By: #### L 101.9900, L501.6710 #### [facility] [address] [place], [address] Hemoglobin (Bld) [Mass/Vol] 13.4 g/dL Normal 12.0-15.0 [facility] Comment on above: Performed By: #### L 101.9900, L501.6710 #### [facility] [address] [place], [address] IG% 0.600 Normal 0.0-0.9 [facility] Comment on above: Result Comment: IG% - Immature Granulocytes (promyelocytes, myelocytes and metamyelocytes) > 1% indicates that a LEFT SHIFT is Present. Performed By: #### L 101.9900, L501.6710 #### [facility] [address] [place], [address] Lymphocytes/100 WBC (Bld) 21.9 % Normal 19-41 [facility] Comment on above: Performed By: #### L 101.9900, L501.6710 #### [facility] [address] [place], [address] MCH (RBC) [Entitic mass] 29.5 pg Normal 27.0-32.0 [facility] Comment on above: Performed By: #### L 101.9900, L501.6710 #### [facility] [address] [place], [address] MCHC (RBC) [Mass/Vol] 31.7 g/dL Low 32-36 [facility] Comment on above: Performed By: #### L 101.9900, L501.6710 #### [facility] [address] [place], [address] MCV (RBC) [Entitic vol] 93.0 fL Normal 81-99 [facility] Comment on above: Performed By: #### L 101.9900, L501.6710 #### [facility] [address] [place], [address] Monocytes/100 WBC (Bld) 4.1 % Normal 0-10 [facility] Comment on above: Performed By: #### L 101.9900, L501.6710 #### [facility] [address] [place], [address] Neutrophils/100 WBC (Bld) 72.3 % High 47-70 [facility] Comment on above: Performed By: #### L 101.9900, L501.6710 #### [facility] [address] [place], [address] Nucleated RBC (Bld) [#/Vol] 0 10*3/uL Normal 0-5 [facility] Comment on above: Performed By: #### L 101.9900, L501.6710 #### [facility] [address] [place], [address] Platelet mean volume (Bld) [Entitic vol] 9.6 fL Normal 6.2-12.0 [facility] Comment on above: Performed By: #### L 101.9900, L501.6710 #### [facility] [address] [place], [address] Platelets (Bld) [#/Vol] 302 10*3/uL Normal 150-450 [facility] Comment on above: Performed By: #### L 101.9900, L501.6710 #### [facility] [address] [place], [address] RBC (Bld) [#/Vol] 4.55 10*6/uL Normal 4.2-5.4 [facility] Comment on above: Performed By: #### L 101.9900, L501.6710 #### [facility] [address] [place], [address] RDW SD 41.1 fl Normal 35.1-43.9 [facility] Comment on above: Performed By: #### L 101.9900, L501.6710 #### [facility] [address] [place], [address] WBC (Bld) [#/Vol] 8.4 10*3/uL Normal 4.4-11.0 [facility] Comment on above: Performed By: #### L 101.9900, L501.6710 #### [facility] [address] [place], [address] CRPon 03-05-2024 C-REACTIVE PROT 11.40 mg/L High 0.0-3.0 [facility] Comment on above: Result Comment: C-Re active Protein (CRP) provides useful information for the diagnosis, therapy and monitoring of inflammatory processes and associated diseases. For the evaluation of Relative Risk for Cardiovascular Disease, a High Sensitivity CRP (HSCRP) should be ordered. Performed By: #### L 101.9900, L501.6710 #### [facility] [address] [place], [address] Comprehensive Metabolic Prof ilon 03-05-2024 Albumin [Mass/Vol] 3.7 g/dL Normal 3.2-5.0 [facility] Comment on above: Performed By: #### L 101.9900, L501.6710 #### [facility] [address] [place], [address] Albumin/Globulin [Mass ratio] 1.1 {ratio} Normal 0.9-2.4 [facility] Comment on above: Performed By: #### L 101.9900, L501.6710 #### [facility] [address] [place], [address] ALK P 62 U/L Normal 45-117 [facility] Comment on above: Performed By: #### L 101.9900, L501.6710 #### [facility] [address] [place], [address] ALT [Catalytic activity/Vol] 24 U/L Normal 13-56 [facility] Comment on above: Performed By: #### L 101.9900, L501.6710 #### [facility] [address] [place], [address] AST [Catalytic activity/Vol] 14 U/L Low 15-37 [facility] Comment on above: Performed By: #### L 101.9900, L501.6710 #### [facility] [address] [place], [address] Bilirubin [Mass/Vol] 0.40 mg/dL Normal 0.20-1.00 [facility] Comment on above: Result Comment: For patients on eltrombopag therapy, use of Dimension [place] TBIL is not recommended. Performed By: #### L 101.9900, L501.6710 #### [facility] [address] [place], [address] BUN/CRE 28.0 RATIO High 10-20 [facility] Comment on above: Performed By: #### L 101.9900, L501.6710 #### [facility] [address] [place], [address] CA,Total 9.7 mg/dL Normal 8.5-10.1 [facility] Comment on above: Performed By: #### L 101.9900, L501.6710 #### [facility] [address] [place], [address] Chloride [Moles/Vol] 108 mmol/L High 98-107 [facility] Comment on above: Performed By: #### L 101.9900, L501.6710 #### [facility] [address] [place], [address] CO2 [Moles/Vol] 27.0 mmol/L Normal 21.0-32.0 [facility] Comment on above: Performed By: #### L 101.9900, L501.6710 #### [facility] [address] [place], [address] Creatinine [Mass/Vol] 0.57 mg/dL Normal 0.55-1.02 [facility] Comment on above: Result Comment: The validity of the calculated GFR GFRAA in patients over 70 years has not been determined. Clinical correlation is essential. Performed By: #### L 101.9900, L501.6710 #### [facility] [address] [place], [address] EST GFR - AA 133 mL/min Normal >60 [facility] Comment on above: Result Comment: Afri can [place] GFR Calc Performed By: #### L 101.9900, L501.6710 #### [facility] [address] [place], [address] GAP 5 Normal 5-15 [facility] Comment on above: Performed By: #### L 101.9900, L501.6710 #### [facility] [address] [place], [address] GFR/1.73 sq M.predicted among non-blacks MDRD (S/P/Bld) [Vol rate/Area] 110 mL/min/{1.73_m2} Normal >60 [facility] Comment on above: Result Comment: Non- GFR Calc Performed By: #### L 101.9900, L501.6710 #### [facility] [address] [place], [address] Globulin (S) [Mass/Vol] 3.5 g/dL Normal 2.2-4.2 [facility] Comment on above: Performed By: #### L 101.9900, L501.6710 #### [facility] [address] [place], [address] Glucose [Mass/Vol] 111 mg/dL High 74-106 [facility] Comment on above: Result Comment: Fast ing Glucose result from 100 to 125 mg/dL suggests IMPAIRED HOMEOSTASIS per A.D.A. criteria. Performed By: #### L 101.9900, L501.6710 #### [facility] [address] [place], [address] Potassium [Moles/Vol] 4.0 mmol/L Normal 3.5-5.1 [facility] Comment on above: Performed By: #### L 101.9900, L501.6710 #### [facility] [address] [place], [address] Sodium [Moles/Vol] 140 mmol/L Normal 136-145 [facility] Comment on above: Performed By: #### L 101.9900, L501.6710 #### [facility] [address] [place], [address] T PROT 7.2 g/dL Normal 6.4-8.2 [facility] Comment on above: Performed By: #### L 101.9900, L501.6710 #### [facility] [address] [place], [address] Urea nitrogen [Mass/Vol] 16 mg/dL Normal 7-18 [facility] Comment on above: Performed By: #### L 101.9900, L501.6710 #### [facility] [address] [place], [address] Erythrocyte Sed Rateon 03-05 SED RATE 9 mm/hr Normal 0-30 [facility] Comment on above: Performed By: #### L 101.9900, L501.6710 #### [facility] [address] [place], [address] Internal Medicine Office Vis iton 02-05-2024 Internal Medicine Office Visit [facility] [address] [place], [place] [address] OFFICE VISIT Date of Service: 02/05/24 MR#: [id number] Acct: [id number] Name: DEYANIRA FELIX Rep #: [id number] : 1950 Provider: Dr. Shivani pardo MD Age/Sex: 73/F Location: [facility] [place] Status: Signed Intake Vital Signs 07/06/23 16:57 02/05/24 13:33 Height 5 ft 5 in 5 ft 5 in Weight: 126 lb 6 oz 141 lb BMI 21.0 23.4 BP 126/60 H 148/70 H Blood Pressure Location Rt brachial Lt brachial Position Sitting Sitting Respiration 16 16 Pulse 97 87 Pulse Source Monitor Monitor Temp 97.6 F L 97.6 F L Temp Source Temporal Temporal Pulse Oximetry (%) 98 96 Oxygen Delivery Method room air room air Intake Visit Reasons: 6 M FU Chief Complaint: 6 M U Is patient in pain?: Yes (BILATERAL LEG ) Pain scale (1-10): 1 Allergies formaldehyde Allergy (Verified 02/05/24 13:23) Hives Medications ???Medication ???Instructions ???Recorded ???Confirmed ???Type mirtazapine 7.5 mg tablet 7.5 mg PO QHS PRN Insomina #90 tabs 07/06/23 02/05/24 Rx super food PO DAILY 07/06/23 02/05/24 History calcium carbonate (Calcium 500) 1,000 mg PO DAILY 02/05/24 02/05/24 History cholecalciferol (vitamin D3) 125 125 mcg PO DAILY 02/05/24 02/05/24 History mcg (5,000 unit) capsule lysine 1,000 mg tablet 1,000 mg PO DAILY 02/05/24 02/05/24 History magnesium 200 mg tablet 400 mg PO DAILY 02/05/24 02/05/24 History prednisone 10 mg tablet 10 mg PO DAILY 02/05/24 02/05/24 History prednisone 5 mg tablet 2.5 mg PO DAILY 02/05/24 02/05/24 History PFSH Medical History (Updated 02/05/24 @ 17:[address] Shivani Vallejo MD) Myalgia Temporal arteritis Poor appetite Chronic fatigue Insomnia Kidney stones Family History Other Colon cancer Heart disease Kidney disease Myocardial infarction Osteoporosis Social History Smoking Status: Never smoker alcohol intake: never substance use type: does not use what type of physical activity do you participate in: walking frequency: daily HPI HPI Chief Complaint: 6 M U Details: DEYANIRA FELIX, is a 73 F who presents to the office today for follow-up of her chronic medical conditions. No acute concerns at this time. Since last visit, she was managed for right-sided temporal arteritis in [place]. Started out with visual impairment and following workup, was diagnosed with temporal arthritis. Has been on prednisone. It also appears that she may have had what appears to have been proximal muscle pain and weakness. These have improved since going on steroids. Recently had labs done with an ESR at 11. She is concerned that there has been a steady progressive increase from 7-9 and now 11. On a tapering dose of prednisone. Other chronic medical conditions are largely stable. Fatigue and feeling of unwell which she had reported at her last visit have since resolved. She states that she was treated for Lyme's and toxins by a wellness clinic. ROS Const Constitutional: Positive for other (REPORTS SYMPTOMS OF LYME DISEASE IMPROVING); No body ache, chills, excessive sweating, fatigue, fever(s), frequent falls, headache(s), snoring, weakness, sleep problems or change in appetite Eyes Eyes: No blurry vision, change in vision, floaters, visual disturbances or Light sensitivity ENT ENT: No abnormal hearing, ear or mastoid pain, tinnitus, nosebleed/epistaxis , nasal congestion, nasal discharge, headache(s), neck pain or sore throat Resp Respiratory: No cough, excessive phlegm production, pain on inspiration, shortness of breath, snoring or wheezing Cardio Cardiology: No chest pain at rest, chest pain with exertion, excessive sweating, shortness of breath, dyspnea on exertion, lightheadedness, orthopnea or palpitations Gastro GI: No abdominal pain, change in bowel habits, constipation, cramping, diarrhea or nausea/dyspepsia Genitourinary-Femal e: No burning urination, painful urination, urinary incontinence, urinary frequency, suprapubic fullness or side pain Musc Musculoskeletal: No abnormal gait, joint pain, back pain, limited range of motion, muscle cramps, muscle weakness, neck pain or numbness Skin Skin: No dry skin, redness, excessive hair growth, yellowing of the eye, lesions, itchy eyes, rash or wounds Neuro Neurology: No abnormal gait, abnormal hearing, weakness, frequent falls, headache(s), memory loss, numbness or visual disturbances Psych Psychiatric: No anxiety, No change in appetite, No depression, No memory loss, No panic attacks and No Thoughts of harming yourself/Others Endo Endocrine: No cold intolerance, excessive sweating, fatigue, flushing, heat intolerance, increased thirst/drinking or increased hunger Aller/ (more content not included)... Normal [facility] CBC W/Diff, Automatedon 06-0 Absolute Lymph 1.29 X10 3/uL Normal 0.83-4.51 [facility] Comment on above: Performed By: #### L 101.9900, L501.6710 #### [facility] [place], [address] Absolute Neut 7.3 X10 3/uL Normal 2.0-7.7 [facility] Comment on above: Performed By: #### L 101.9900, L501.6710 #### [facility] [address] [place], [address] Basophils/100 WBC (Bld) 0.4 % Normal 0-1 [facility] Comment on above: Performed By: #### L 101.9900, L501.6710 #### [facility] [address] [place], [address] Eosinophils/100 WBC (Bld) 0.8 % Normal 0-5 [facility] Comment on above: Performed By: #### L 101.9900, L501.6710 #### [facility] [address] [place], [address] Erythrocyte distribution width (RBC) [Ratio] 12.1 % Normal 11.6-14.6 [facility] Comment on above: Performed By: #### L 101.9900, L501.6710 #### [facility] [address] [place], [address] Hematocrit (Bld) [Volume fraction] 41.6 % Normal 37-47 [facility] Comment on above: Performed By: #### L 101.9900, L501.6710 #### [facility] [address] [place], [address] Hemoglobin (Bld) [Mass/Vol] 13.3 g/dL Normal 12.0-15.0 [facility] Comment on above: Performed By: #### L 101.9900, L501.6710 #### [facility] [address] [place], [address] IG% 0.700 Normal 0.0-0.9 [facility] Comment on above: Result Comment: IG% - Immature Granulocytes (promyelocytes, myelocytes and metamyelocytes) > 1% indicates that a LEFT SHIFT is Present. Performed By: #### L 101.9900, L501.6710 #### [facility] [address] [place], [address] Lymphocytes/100 WBC (Bld) 14.0 % Low 19-41 [facility] Comment on above: Performed By: #### L 101.9900, L501.6710 #### [facility] [address] [place], [address] MCH (RBC) [Entitic mass] 30.6 pg Normal 27.0-32.0 [facility] Comment on above: Performed By: #### L 101.9900, L501.6710 #### [facility] [address] [place], [address] MCHC (RBC) [Mass/Vol] 32.0 g/dL Normal 32-36 [facility] Comment on above: Performed By: #### L 101.9900, L501.6710 #### [facility] [address] [place], [address] MCV (RBC) [Entitic vol] 95.9 fL Normal 81-99 [facility] Comment on above: Performed By: #### L 101.9900, L501.6710 #### [facility] [address] [place], [address] Monocytes/100 WBC (Bld) 4.7 % Normal 0-10 [facility] Comment on above: Performed By: #### L 101.9900, L501.6710 #### [facility] [address] [place], [address] Neutrophils/100 WBC (Bld) 79.4 % High 47-70 [facility] Comment on above: Performed By: #### L 101.9900, L501.6710 #### [facility] [address] [place], [address] Nucleated RBC (Bld) [#/Vol] 0 10*3/uL Normal 0-5 [facility] Comment on above: Performed By: #### L 101.9900, L501.6710 #### [facility] [address] [place], [address] Platelet mean volume (Bld) [Entitic vol] 9.3 fL Normal 6.2-12.0 [facility] Comment on above: Performed By: #### L 101.9900, L501.6710 #### [facility] [address] [place], [address] Platelets (Bld) [#/Vol] 287 10*3/uL Normal 150-450 [facility] Comment on above: Performed By: #### L 101.9900, L501.6710 #### [facility] [address] [place], [address] RBC (Bld) [#/Vol] 4.34 10*6/uL Normal 4.2-5.4 [facility] Comment on above: Performed By: #### L 101.9900, L501.6710 #### [facility] [address] [place], [address] RDW SD 42.5 fl Normal 35.1-43.9 [facility] Comment on above: Performed By: #### L 101.9900, L501.6710 #### [facility] [address] [place], [address] WBC (Bld) [#/Vol] 9.2 10*3/uL Normal 4.4-11.0 [facility] Comment on above: Performed By: #### L 101.9900, L501.6710 #### [facility] [address] [place], [address] CRPon 02-02-2024 C-REACTIVE PROT 14.10 mg/L High 0.0-3.0 [facility] Comment on above: Result Comment: C-Re active Protein (CRP) provides useful information for the diagnosis, therapy and monitoring of inflammatory processes and associated diseases. For the evaluation of Relative Risk for Cardiovascular Disease, a High Sensitivity CRP (HSCRP) should be ordered. Performed By: #### L 101.9900, L501.6710 #### [facility] [address] [place], [address] Comprehensive Metabolic Prof ilon 02-02-2024 Albumin [Mass/Vol] 3.4 g/dL Normal 3.2-5.0 [facility] Comment on above: Performed By: #### L 101.9900, L501.6710 #### [facility] [address] [place], [address] Albumin/Globulin [Mass ratio] 1.0 {ratio} Normal 0.9-2.4 [facility] Comment on above: Performed By: #### L 101.9900, L501.6710 #### [facility] [address] [place], [address] ALK P 64 U/L Normal 45-117 [facility] Comment on above: Performed By: #### L 101.9900, L501.6710 #### [facility] [address] [place], [address] ALT [Catalytic activity/Vol] 27 U/L Normal 13-56 [facility] Comment on above: Performed By: #### L 101.9900, L501.6710 #### [facility] [address] [place], [address] AST [Catalytic activity/Vol] 21 U/L Normal 15-37 [facility] Comment on above: Performed By: #### L 101.9900, L501.6710 #### [facility] [address] [place], [address] Bilirubin [Mass/Vol] 0.40 mg/dL Normal 0.20-1.00 [facility] Comment on above: Result Comment: For patients on eltrombopag therapy, use of Dimension [place] TBIL is not recommended. Performed By: #### L 101.9900, L501.6710 #### [facility] [address] [place], [address] BUN/CRE 20.0 RATIO Normal 10-20 [facility] Comment on above: Performed By: #### L 101.9900, L501.6710 #### [facility] [address] [place], [address] CA,Total 9.4 mg/dL Normal 8.5-10.1 [facility] Comment on above: Performed By: #### L 101.9900, L501.6710 #### [facility] [address] [place], [address] Chloride [Moles/Vol] 105 mmol/L Normal 98-107 [facility] Comment on above: Performed By: #### L 101.9900, L501.6710 #### [facility] [address] [place], [address] CO2 [Moles/Vol] 29.0 mmol/L Normal 21.0-32.0 [facility] Comment on above: Performed By: #### L 101.9900, L501.6710 #### [facility] [address] [place], [address] Creatinine [Mass/Vol] 0.60 mg/dL Normal 0.55-1.02 [facility] Comment on above: Result Comment: The validity of the calculated GFR GFRAA in patients over 70 years has not been determined. Clinical correlation is essential. Performed By: #### L 101.9900, L501.6710 #### [facility] [address] [place], [address] EST GFR - AA 126 mL/min Normal >60 [facility] Comment on above: Result Comment: Afri can [place] GFR Calc Performed By: #### L 101.9900, L501.6710 #### [facility] [address], [address] GAP 5 Normal 5-15 [facility] Comment on above: Performed By: #### L 101.9900, L501.6710 #### [facility] [address] [place], [address] GFR/1.73 sq M.predicted among non-blacks MDRD (S/P/Bld) [Vol rate/Area] 104 mL/min/{1.73_m2} Normal >60 [facility] Comment on above: Result Comment: Non- GFR Calc Performed By: #### L 101.9900, L501.6710 #### [facility] [address] [place], [address] Globulin (S) [Mass/Vol] 3.4 g/dL Normal 2.2-4.2 [facility] Comment on above: Performed By: #### L 101.9900, L501.6710 #### [facility] [address] [place], [address] Glucose [Mass/Vol] 114 mg/dL High 74-106 [facility] Comment on above: Result Comment: Fast ing Glucose result from 100 to 125 mg/dL suggests IMPAIRED HOMEOSTASIS per A.D.A. criteria. Performed By: #### L 101.9900, L501.6710 #### [facility] [address] [place], [address] Potassium [Moles/Vol] 4.1 mmol/L Normal 3.5-5.1 [facility] Comment on above: Performed By: #### L 101.9900, L501.6710 #### [facility] [address] [place], [address] Sodium [Moles/Vol] 139 mmol/L Normal 136-145 [facility] Comment on above: Performed By: #### L 101.9900, L501.6710 #### [facility] [address] [place], [address] T PROT 6.8 g/dL Normal 6.4-8.2 [facility] Comment on above: Performed By: #### L 101.9900, L501.6710 #### [facility] [address] [place], [address] Urea nitrogen [Mass/Vol] 12 mg/dL Normal 7-18 [facility] Comment on above: Performed By: #### L 101.9900, L501.6710 #### [facility] [address] [place], [address] Erythrocyte Sed Rateon 02-01 SED RATE 11 mm/hr Normal 0-30 [facility] Comment on above: Performed By: #### L 500.4050, L100.0100, L501.6710, L101.9900 #### [facility] [address] [place], [address] PROTEIN, TOTAL AND PROTEIN E LECTROPHORESISon 06-02-2023 Albumin [Mass/Vol] 3.3 g/dL Low 3.8-4.8 [facility] Comment on above: Order Comment: FASTI NG: NO Performed By: #### 7 47 #### [facility] [address], [address] [place], [place] [id number] Pearl Peller: Kamari Lam MD ALPHA 1 GLOBULIN 0.5 g/dL High 0.2-0.3 [facility] Comment on above: Order Comment: FASTI NG: NO Performed By: #### 7 47 #### [facility] [address], [address] [place], [place] [id number] [place] Peller: Kamari Lam MD ALPHA 2 GLOBULIN 1.2 g/dL High 0.5-0.9 [facility] Comment on above: Order Comment: FASTI NG: NO Performed By: #### 7 47 #### [facility] [place] [address] Pearl Peller: Kamari Lam MD BETA 1 GLOBULIN 0.5 g/dL Normal 0.4-0.6 [facility] Comment on above: Order Comment: FASTI NG: NO Performed By: #### 7 47 #### [facility] [place] [address] [place] Peller: Kamari Lam MD BETA 2 GLOBULIN 0.4 g/dL Normal 0.2-0.5 [facility] Comment on above: Order Comment: FASTI NG: NO Performed By: #### 7 47 #### [facility] [place] [address] [place] Peller: Kamari Lam MD GAMMA GLOBULIN 1.0 g/dL Normal 0.8-1.7 [facility] Comment on above: Order Comment: FASTI NG: NO Performed By: #### 7 47 #### [facility] [place] [address] [place] Peller: Kamari Lam MD INTERPRETATION Normal [facility] Comment on above: Order Comment: FASTI NG: NO Result Comment: Evaluation is consistent with an acute inflammatory pattern. Performed By: #### 7 47 #### [facility] [place] [address] Pearl Peller: Kamari Lam MD Protein [Mass/Vol] 6.9 g/dL Normal 6.1-8.1 [facility] Comment on above: Order Comment: FASTI NG: NO Performed By: #### 7 47 #### [facility] [place] [address] Pearl Peller: Kamari Lam MD PROTEIN, TOTAL AND PROTEIN E LECTROPHORESISon 05-30-2023 Albumin [Mass/Vol] 3.6 g/dL Low 3.8-4.8 [facility] Comment on above: Order Comment: FASTI NG: NO Performed By: #### 7 47 #### [facility] of [address], [address] [place] [address] Pearl Peller: Kamari Lam MD ALPHA 1 GLOBULIN 0.5 g/dL High 0.2-0.3 [facility] Comment on above: Order Comment: FASTI NG: NO Performed By: #### 7 47 #### [facility] [address], [address] [place] [address] Pearl Peller: Kamari Lam MD ALPHA 2 GLOBULIN 1.1 g/dL High 0.5-0.9 [facility] Comment on above: Order Comment: FASTI NG: NO Performed By: #### 7 47 #### [facility] [address], [address] [place] [address] Pearl Peller: Kamari Lam MD BETA 1 GLOBULIN 0.5 g/dL Normal 0.4-0.6 [facility] Comment on above: Order Comment: FASTI NG: NO Performed By: #### 7 47 #### [facility] [address], [address] [place] [address] Pearl Peller: Kamari Lam MD BETA 2 GLOBULIN 0.4 g/dL Normal 0.2-0.5 [facility] Comment on above: Order Comment: FASTI NG: NO Performed By: #### 7 47 #### [facility] [place] [address] Pearl Peller: Kamari Lam MD GAMMA GLOBULIN 1.1 g/dL Normal 0.8-1.7 [facility] Comment on above: Order Comment: FASTI NG: NO Performed By: #### 7 47 #### [facility] [place] [address] Pearl Peller: Kamari Lam MD INTERPRETATION Normal [facility] Comment on above: Order Comment: FASTI NG: NO Result Comment: Evaluation is consistent with an acute inflammatory pattern. Performed By: #### 7 47 #### [facility] [address], [address] [place] [address] Pearl Peller: Kamari Lam MD Protein [Mass/Vol] 7.2 g/dL Normal 6.1-8.1 [facility] Comment on above: Order Comment: FASTI NG: NO Performed By: #### 7 47 #### [facility] [address], [address] [place] [address] Pearl Peller: Kamari Lam MD GAURANG SCREEN, IFA, W/REFL TITE R AND PATTERNon 05-23-2023 GAURANG SCREEN, IFA Negative Normal NEGATIVE [facility] Comment on above: Result Comment: GAURANG IFA is a first line screen for detecting the presence of up to approximately 150 autoantibodies in various autoimmune diseases. A negative GAURANG IFA result suggests an GAURANG-associated autoimmune disease is not present at this time, but is not definitive. If there is high clinical suspicion for Sjogren's syndrome, testing for anti-SS-A/Ro antibody should be considered. Anti-Jenniffer-1 antibody should be considered for clinically suspected inflammatory myopathies. AC-0: Negative International Consensus on GAURANG Patterns (https://doi.org/10.1515/aqla-3444-9362) For additional information, please refer to http://education.PBJ [email or web address] (This link is being provided for informational/ educational purposes only.) Performed By: #### 2 34, 809 #### [facility] [address], [address] [place] [address] Pearl Peller: Kamari Lam MD SED RATE BY MODIFIED SYD Sarkar 05-23-2023 SED RATE BY MODIFIED WESTERGREN 86 mm/h High < OR = 30 [facility] Comment on above: Order Comment: FASTI NG: NO Performed By: #### 2 83, 809 #### [facility] [address], [address] [place] [address] Pearl Peller: Kamari Lam MD Rapid Flu (67125 x 2)Ordered By: Dede Culver on 06-05-2015 FLUAV Ag IA Ql (Throat) Negative Normal [facility] Work Phone: Vital Signs Date Time Vital Sign Value Performing Clinician Facility 10-21-2024 10:39-0500 Body height 165.[address] Shivani Vallejo MD Work Phone: [facility] 10-21-2024 10:39-0500 Body mass index (BMI) [Ratio] 23.4 kg/m2 Dr. Shivani Vallejo MD Work Phone: [facility] 10-21-2024 10:39-0500 Body temperature 96.6 [degF] Dr. Shivani Vallejo MD Work Phone: [facility] 10-21-2024 10:39-0500 Body weight 63.[address] Shivani Vallejo MD Work Phone: [facility] 10-21-2024 10:39-0500 Diastolic blood pressure 58 mm[Hg] Dr. Shivani Vallejo MD Work Phone: [facility] 10-21-2024 10:39-0500 Heart rate 83 /min Dr. Shivani Vallejo MD Work Phone: [facility] 10-21-2024 10:39-0500 Respiratory rate 16 /min Dr. Shivani Vallejo MD Work Phone: [facility] 10-21-2024 10:39-0500 SaO2% (BldA) [Mass fraction] 97 % Dr. Shivani Vallejo MD Work Phone: [facility] 10-21-2024 10:39-0500 Systolic blood pressure 112 mm[Hg] Dr. Shivani Vallejo MD Work Phone: [facility] 12-13-2018 10:52-0400 BMI (Body Mass Index) 24.46 kg/m2 Brenda Whelan [facility] Work Phone: 12-13-2018 10:52-0400 Body Temperature 97.6 [degF] [facility] Work Phone: Comment on above: Method: Temporal 12-13-2018 10:52-0400 BP Diastolic 74 mm[Hg] Brenda Whelan [facility] Work Phone: Comment on above: Patient Position: Sitting; Cuff Location : Left Arm; Cuff Size: Standard 12-13-2018 10:52-0400 BP Systolic 130 mm[Hg] Brenda Whelan [facility] Work Phone: Comment on above: Patient Position: Sitting; Cuff Location : Left Arm; Cuff Size: Standard 12-13-2018 10:52-0400 BSA (Body Surface Area) 1.74 m2 Brenda Whelan [facility] Work Phone: 12-13-2018 10:52-0400 Height 165.1 cm Brenda Whelan [facility] Work Phone: 12-13-2018 10:52-0400 Pulse (Heart Rate) 78 /min Brenda Whelan [facility] Work Phone: Comment on above: Pattern: Regular 12-13-2018 10:52-0400 Pulse Oximetry 95 % Brenda Whelan [facility] Work Phone: Comment on above: Room air 12-13-2018 10:52-0400 Respiratory Rate 16 /min Brenda Whelan [facility] Work Phone: Comment on above: Pattern: Unlabored 12-13-2018 10:52-0400 Weight 66.68 kg Brenda Whelan [facility] Work Phone: 08-07-2017 10:04-0500 BMI (Body Mass Index) 24.46 kg/m2 Brenda Whelan [facility] Work Phone: 08-07-2017 10:04-0500 BP Diastolic 86 mm[Hg] Brenda Whelan [facility] Work Phone: Comment on above: Patient Position: Sitting; Cuff Location : Left Arm; Cuff Size: Large 08-07-2017 10:04-0500 BP Systolic 122 mm[Hg] [facility] Work Phone: Comment on above: Patient Position: Sitting; Cuff Location : Left Arm; Cuff Size: Large 08-07-2017 10:04-0500 BSA (Body Surface Area) 1.74 m2 Brenda Whelan [facility] Work Phone: 08-07-2017 10:04-0500 Height 165.1 cm Brenda W[facility] Work Phone: 08-07-2017 10:04-0500 Pulse (Heart Rate) 79 /min Brenda Whel[facility] Work Phone: Comment on above: Pattern: Regular 08-07-2017 10:04-0500 Pulse Oximetry 94 % [facility] Work Phone: Comment on above: Room air 08-07-2017 10:04-0500 Respiratory Rate 18 /min [facility] Work Phone: Comment on above: Pattern: Unlabored 08-07-2017 10:04-0500 Weight 66.68 kg Brenda Whelan [facility] Work Phone: 04-11-2016 14:53-0400 BMI (Body Mass Index) 24.82 kg/m2 Brenda W[facility] Work Phone: 04-11-2016 14:53-0400 BP Diastolic 82 mm[Hg] Brenda Whelan [facility] Work Phone: Comment on above: Patient Position: Sitting; Cuff Location : Left Arm; Cuff Size: Standard 04-11-2016 14:53-0400 BP Systolic 138 mm[Hg] Brenda Whelan [facility] Work Phone: Comment on above: Patient Position: Sitting; Cuff Location : Left Arm; Cuff Size: Standard 04-11-2016 14:53-0400 BSA (Body Surface Area) 1.75 m2 Brenda Whel[facility] Work Phone: 04-11-2016 14:53-0400 Height 165.1 cm [facility] Work Phone: 04-11-2016 14:53-0400 Pulse (Heart Rate) 79 /min Brenda Whel[facility] Work Phone: Comment on above: Pattern: Regular 04-11-2016 14:53-0400 Pulse Oximetry 97 % Brenda W[facility] Work Phone: Comment on above: Room air 04-11-2016 14:53-0400 Respiratory Rate 18 /min Brenda [facility] Work Phone: Comment on above: Pattern: Unlabored 04-11-2016 14:53-0400 Weight 67.64 kg Brenda Whel[facility] Work Phone: 06-05-2015 13:38-0400 Body Temperature 98.2 [degF] Brenda W[facility] Work Phone: Comment on above: Method: Temporal 06-05-2015 13:38-0400 BP Diastolic 72 mm[Hg] Brenda Whel[facility] Work Phone: Comment on above: Patient Position: Sitting; Cuff Location : Left Arm; Cuff Size: Standard 06-05-2015 13:38-0400 BP Systolic 124 mm[Hg] Brenda Whel[facility] Work Phone: Comment on above: Patient Position: Sitting; Cuff Location : Left Arm; Cuff Size: Standard 06-05-2015 13:38-0400 Pulse (Heart Rate) 76 /min Brenda Whel[facility] Work Phone: Comment on above: Pattern: Regular 06-05-2015 13:38-0400 Pulse Oximetry 95 % Brenda W[facility] Work Phone: Comment on above: Room air 06-05-2015 13:38-0400 Respiratory Rate 16 /min Brenda Whel[facility] Work Phone: Comment on above: Pattern: Unlabored 07-19-2013 11:45-0500 Body Temperature 97.6 [degF] Brenda Whelan [facility] Work Phone: Comment on above: Method: Oral 07-19-2013 11:45-0500 BP Diastolic 70 mm[Hg] Brenda Whel[facility] Work Phone: Comment on above: Patient Position: Sitting; Cuff Location : Left Arm; Cuff Size: Standard 07-19-2013 11:45-0500 BP Systolic 124 mm[Hg] Brenda Whel[facility] Work Phone: Comment on above: Patient Position: Sitting; Cuff Location : Left Arm; Cuff Size: Standard 07-19-2013 11:45-0500 Pulse (Heart Rate) 68 /min Brenda Whel[facility] Work Phone: Comment on above: Pattern: Regular 07-19-2013 11:45-0500 Pulse Oximetry 98 % Brenda W[facility] Work Phone: Comment on above: Room air 07-19-2013 11:45-0500 Respiratory Rate 16 /min Brenda W[facility] Work Phone: Comment on above: Pattern: Unlabored 07-12-2013 14:10-0500 Body Temperature 98.2 [degF] Brenda W[facility] Work Phone: Comment on above: Method: Axillary 07-12-2013 14:10-0500 BP Diastolic 74 mm[Hg] Brenda W[facility] Work Phone: Comment on above: Patient Position: Sitting; Cuff Location : Left Arm; Cuff Size: Standard 07-12-2013 14:10-0500 BP Systolic 126 mm[Hg] Brenda W[facility]an [facility] Work Phone: Comment on above: Patient Position: Sitting; Cuff Location : Left Arm; Cuff Size: Standard 07-12-2013 14:10-0500 Pulse (Heart Rate) 76 /min Brenda W[facility] Work Phone: Comment on above: Pattern: Regular 07-12-2013 14:10-0500 Pulse Oximetry 97 % Brenda W[facility] Work Phone: Comment on above: Room air 07-12-2013 14:10-0500 Respiratory Rate 16 /min Brenda W[facility] Work Phone: Comment on above: Pattern: Unlabored Encounters Encounter Date Encounter Type Care Provider Facility Start: 01-22-2025 End: 01-22-[address] Shivani Vallejo MD Work Phone: [facility] Work Phone: Start: 01-22-2025 End: 01-22-[address] Deirdre Lozano MD -Laboratory Work Phone: Start: 01-22-2025 End: 01-22-2025 ambulatory [facility] Facility:[facility] Start: 11-22-2024 End: 11-22-[address] Shivani Vallejo MD Work Phone: [facility] Work Phone: Start: 11-22-2024 End: 11-22-[address] Deirdre Lozano MD -Laboratory Work Phone: Start: 11-22-2024 End: 11-22-2024 ambulatory [facility] Facility:[facility] Start: 10-21-2024 End: 10-21-[address] Shivani Vallejo MD Work Phone: [facility] Work Phone: Start: 10-21-2024 End: 10-21-[address] Shivani Vallejo MD -Laboratory, [place] Start: 10-21-2024 End: 10-21-[address] Shivani Vallejo MD [facility] Work Phone: Start: 10-21-2024 End: 10-21-2024 ambulatory [facility] Facility:[facility] Start: 10-21-2024 End: 10-21-2024 ambulatory [facility] Facility:[facility] Start: 10-03-2024 End: 10-03-[address] Deirdre Lozano MD -Laboratory Work Phone: Start: 10-03-2024 End: 10-03-2024 ambulatory Deirdre Lozano Facility:[facility] Start: 08-03-2024 End: 08-03-[address] Deirdre Lozano MD -Laboratory Work Phone: Start: 08-03-2024 End: 08-03-2024 ambulatory [facility] Facility:[facility] Start: 07-06-2024 End: 07-06-[address] Deirdre Lozano MD -Laboratory Work Phone: Start: 07-06-2024 End: 07-06-2024 [facility] Start: 05-27-2024 End: 05-27-2024 ambulatory [facility] Facility:[facility] Start: 04-25-2024 End: 04-25-2024 ambulatory [facility] Facility:[facility] Start: 04-13-2024 End: 04-13-2024 ambulatory [facility] Facility:[facility] Start: 04-08-2024 End: 04-08-2024 ambulatory [facility] Facility:[facility] Start: 03-27-2024 End: 03-27-2024 ambulatory [facility] Facility:[facility] Start: 03-05-2024 End: 03-05-2024 ambulatory [facility] Start: 02-05-2024 End: 02-05-2024 [facility] Start: 02-02-2024 End: 02-02-2024 ambulatory [facility] Facility:[facility] Start: 12-13-2018 Patient encounter procedure [facility] Start: 12-13-2018 End: 12-13-2018 Office outpatient visit 15 minutes [facility] Start: 08-07-2017 End: 08-07-2017 Office outpatient visit 15 minutes [facility] Start: 04-11-2016 End: 04-11-2016 Phone Encounter [facility] Start: 04-11-2016 End: 04-11-2016 Office outpatient visit 15 minutes [facility] Start: 06-05-2015 End: 06-05-2015 Office outpatient visit 15 minutes Brenda Whelan [facility] Start: 07-19-2013 End: 07-19-2013 Patient encounter procedure Brenda Whelan [facility] Start: 07-12-2013 End: 07-12-2013 Office outpatient visit 15 minutes Brenda Whelan [facility] Procedures Date Procedure Procedure Detail Performing Clinician Start: 10-21-2024 Measurement of renal function Dr. Shivani Vallejo MD Work Phone: Comment on above: GFR Calc Start: 10-21-2024 Vitamin D, 25-hydroxy measurement Dr. Shivani Vallejo MD Work Phone: Comment on above: Vitamin D 25(OH) Status Range Deficiency <20 ng/mL (50nmol/L) Insufficiency 20 - 30 ng/mL (50 - 75 nmol/L) Sufficiency 30 - 100 ng/mL (75 - 250 nmol/L) Toxicity >100 ng/mL (>250 nmol/L) Start: 12-13-2018 End: 12-13-2018 Hand Min 3 Views Comments: See Note; NOTES: [facility] Imaging Services [address] [place] [address] Hand Min 3 Views MR#: [id number] Acct: [id number] Name: DEYANIRA FELIX Rep #: [id number] : 1950 F 68 From: Natan Dave MD PCP: Brenda Whelan DO Status: REG CLI Study: Hand Min 3 Views Date of Exam: 12/13/18 Exam# [id number] Ordering Dr: Shahana Rebolledo VEST BUSHELERSusie STUDY: X-RAY - LEFT HAND REASON FOR EXAM: Female, 68 years old. Pain following a fall. TECHNIQUE: 3 view(s) of the hand. COMPARISON: None. FINDINGS: Normal radiocarpal articulation. Normal distal radioulnar joint. Normal visualized carpal bones. Normal carpal articulations Normal carpometacarpal articulation of the thumb. Normal second through fifth carpometacarpal joints. Normal metacarpi. Normal metacarpophalangeal joint of the thumb. Normal interphalangeal joint of the thumb. Normal proximal and distal phalanges of the thumb. Normal metacarpophalangeal joints of the second through fifth fingers. Normal proximal and distal interphalangeal joints of the second through fifth fingers. Normal phalanges of the second through fifth fingers. The soft tissue structures are unremarkable. RAD/Hand Min 3 Views IMPRESSION: Normal x-ray examination of the hand. Electronically Signed: Natan Dave, at 11:43 EDT , Service support , CC: CORNELIUS Rebolledo; Brenda Whelan DO Welder Manufacture: Signed Shahana Rebolledo Start: 12-13-2018 End: 12-13-2018 Wrist min 3 Views Comments: See Note; NOTES: [facility] Imaging Services [address] [place] [id number] Wrist min 3 Views MR#: [id number] Acct: [id number] Name: DEYANIRA FELIX Rep #: [id number] : 1950 F 68 From: Natan Dave MD PCP: Brenda Whelan DO Status: REG CLI Study: Wrist min 3 Views Date of Exam: 12/13/18 Exam# [id number] Ordering Dr: Shahana Rebolledo STUDY: X-RAY - LEFT WRIST REASON FOR EXAM: Female, 68 years old. Pain following a fall. TECHNIQUE: 3 view(s) of the wrist were obtained. COMPARISON: None. FINDINGS: Normal visualized distal radius and ulna. Normal radiocarpal articulation. Normal distal radioulnar articulation. Normal carpal bones. Normal carpal articulations. Normal carpometacarpal articulation of the thumb. Normal second through fifth carpometacarpal articulations. Normal visualized metacarpal bones. Soft tissue swelling. RAD/Wrist min 3 Views IMPRESSION: Soft tissue swelling. Electronically Signed: Natan Dave, at 11:44 EDT , Service support , CC: CORNELIUS Rebolledo; Brenda Whelan DO Welder Manufacture: Signed Shahana Rebolledo Plan of Treatment Date Care Activity Detail Author Start: 12-13-2018 Procedure Education Eprescribed prescriptions (G8553) [facility] Work Phone: Start: 12-13-2018 Provider Instructions for Treatment Follow up if no improvement or if symptoms worsen [facility] Work Phone: Start: 04-11-2016 Provider Instructions for Treatment Follow up in 1 year or as needed [facility] Work Phone: Start: 06-05-2015 Procedure Education Eprescribed prescriptions (G8553) [facility] Work Phone: Start: 07-12-2013 Procedure Education [facility] Work Phone: Start: 07-12-2013 Provider Instructions for Treatment [facility] Work Phone: [facility] Work Phone: [facility] Work Phone: [facility] Work Phone: [facility] Work Phone: Payers Date Payer Category Payer Unknown [id number] 2024 Self-pay [id number] 2023 Unknown [id number] Unknown [facility] [id number] Unknown [id number] Unknown [id number] Unknown [id number] Unknown [id number] Unknown [id number] Unknown [id number] Unknown [id number] Unknown [id number] Unknown [id number] [id number] Unknown [id number] [id number] Unknown [id number] [id number] Unknown [id number] [id number] Unknown [id number] Unknown [id number] Unknown [id number] Social History Date Type Detail Facility Start: 07-06-2023 End: 07-06-2023 Tobacco smoking status NDIS Never smoked tobacco (finding) [facility] Start: 05-01-2019 Spouse/ Significant Other Spouse/ Significant Other [facility] Start: 11-02-2024 End: 11-26-2024 Sex Female (finding) [facility] Start: 1950 Sex Assigned At Female [facility] Evaluation note 10-21-2024 Note Date & Type Note Facility 10-21-2024 Evaluation note Diagnosis Onset Date Resolution Osteoporosis acute September 10:34am Temporal arteritis acute Februa 2024 10:34am Insomnia chronic October 21, 2024 10:34am Myalgia resolved October 21, 2024 10:34am [facility] Work Phone: Reason for referral (narrative) Note Date & Type Note Facility Reason for referral (narrative) No reason for referral information available [facility] Work Phone: Summary Purpose Family History Relationship Condition Age at Onset Recorded Date/T gabbi Not Specified Malignant neoplasm of colon Unknown Osteoporosis Unknown Cardiac disease Unknown Kidney disorder Unknown Myocardial infarction Unknown Advance Directives No Advanced Directives Records FoundNo Advanced Directives Records FoundNo Advanced Directives Records Found Instructions Name Dates Details How to access health informa tion online Indication:Nonsmoker Start:13-Dec-2018 Instruction Type:Patient Education How to access health informa tion online - Detail Indication:Nonsmoker Start:13-Dec-2018 Instruction Type:Patient Education Patient Instructions Indication:Wrist swelling, left Start:13-Dec-2018 Instruction Type:Provider Instructions for Treatment How to access health informa tion online Indication:Body mass index (BMI) of 20 to 24 Start:07-Aug-2017 Instruction Type:Patient Education How to access health informa tion online - Detail Indication:Body mass index (BMI) of 20 to 24 Start:07-Aug-2017 Instruction Type:Patient Education Patient Instructions Indication:Body mass index (BMI) of 20 to 24 Start:07-Aug-2017 Instruction Type:Provider Instructions for Treatment How to access health informa tion online Indication:Fever and chills Start:05-Jun-2015 Instruction Type:Patient Education How to access health informa tion online - Detail Indication:Fever and chills Start:05-Jun-2015 Instruction Type:Patient Education Patient Instructions Indication:Fever and chills Start:05-Jun-2015 Instruction Type:Provider Instructions for Treatment Chief Complaint and Reason for Visit Chief Complaint Admit Date Follow Up October 21, 2024 10:34am Reason for Visit Admit Date Osteoporosis October 21, 2024 10:34am Temporal arteritis October 21, 2024 10:34am Insomnia October 21, 2024 10:34am Myalgia October 21, 2024 10:34am Additional Source Comments INFORMATION SOURCE (unrecogn ized section and content) DATE CREATED AUTHOR 12/13/2018 [facility] DATE CREATED AUTHOR AUTHOR'S ORGANIZ ATION 06/05/2023 [facility] DATE CREATED AUTHOR AUTHOR'S ORGANIZ ATION 01/29/2025 [facility] Care Teams (unrecognized sec tion and content) Team Status: Active Member Role Status Dates Dr. Brenda Whelan DO Family Provider Active Dr. Shivani Vallejo MD Primary Care Provider Active Team Status: Inactive Member Role Status Dates Dr. Shivani Vallejo MD Primary Care Provider Active Start: July 06, 2024 End: July 06, 2024 Dr. Deirdre Lozano MD Attending Provider Active Start: July 06, 2024 End: July 06, 2024 Dr. Deirdre Lozano MD Referring Provider Active Start: July 06, 2024 End: July 06, 2024 Team Status: Inactive Member Role Status Dates Dr. Shivani Vallejo MD Primary Care Provider Active Start: August 03, 2024 End: August 03, 2024 Dr. Deirdre Lozano MD Attending Provider Active Start: August 03, 2024 End: August 03, 2024 Dr. Deirdre Lozano MD Referring Provider Active Start: August 03, 2024 End: August 03, 2024 Team Status: Inactive Member Role Status Dates Dr. Shivani Vallejo MD Primary Care Provider Active Start: October 03, 2024 End: October 03, 2024 Dr. Deirdre Lozano MD Attending Provider Active Start: October 03, 2024 End: October 03, 2024 Dr. Deirdre Lozano MD Referring Provider Active Start: October 03, 2024 End: October 03, 2024 Team Status: Inactive Member Role Status Dates Dr. Shivani Vallejo MD Primary Care Provider Active Start: October 21, 2024 End: October 21, 2024 Dr. Shivani Vallejo MD Attending Provider Active Start: October 21, 2024 End: October 21, 2024 Dr. Shivani Vallejo MD Referring Provider Active Start: October 21, 2024 End: October 21, 2024 Team Status: Inactive Member Role Status Dates Dr. Shivani Vallejo MD Primary Care Provider Active Start: November 22, 2024 End: November 22, 2024 Dr. Deirdre Lozano MD Attending Provider Active Start: November 22, 2024 End: November 22, 2024 Dr. Deirdre Lozano MD Referring Provider Active Start: November 22, 2024 End: November 22, 2024 Team Status: Inactive Member Role Status Dates Dr. Shivani Vallejo MD Primary Care Provider Active Start: January 22, 2025 End: January 22, 2025 Dr. Deirdre Lozano MD Attending Provider Active Start: January 22, 2025 End: January 22, 2025 Dr. Deirdre Lozano MD Referring Provider Active Start: January 22, 2025 End: January 22, 2025 Goals (unrecognized section and content) Goals may be documented in a n alternate sectionGoals may be documented in an alternate sectionGoals may be documented in an alternate section FOR RECORDS PERTAINING TO PATIENTS WHO ARE OR HAVE BEEN ENROLLED IN A CHEMICAL DEPENDENCY/SUBSTANCEABUSE PROGRAM, SOME INFORMATION MAY BE OMITTED. This clinical summary was aggregated from multiple sources. Caution should be exercised in using it in the provision of clinical care. This summary normalizes information from multiple sources, and as a consequence, information in this document may materially change the coding, format and clinical context of patient data. In addition, data may be omitted in some cases. CLINICAL DECISIONS SHOULD BE BASED ON THE PRIMARY CLINICAL RECORDS. [employer] provides no warranty or guarantee of the accuracy or completeness of information in this document.
--- OUTSIDE RECORDS SUMMARY | 2025-03-12 10:03 | XMS RPT_ITS | CCD ---
Author Organization [facility] Providers Care Hull Grinder Name Role Phone Brenda Whelan Attending Unavailable [...] Yoni MEI, Dr. Parrish Referring Provider [phone] Chris Vallejoongjayla Primary Care Unavailable [employer] Unavailable LORETTA DEVLIN Referring Unavailable LORETTA DEVLIN Attending Unavailable LORETTA DEVLIN Attending Unavailable Yoni, Efewongbe Primary Care Unavailable [employer] Unavailable LORETTA DEVLIN Referring Unavailable Shivani [...] [Formaldehyde *Antiseptics & Disinfectants] Drug Allergy 5 [facility] Internal Medicine Work Phone: (1 source) Formaldehyde Drug Allergy 5 [facility] Repository Medications Current Medications Medication Drug Class(es) [...] 26, 2022 12:00am July 06, 2023 5:00pm Raonodhkz-Kjsiit-O9 -B2-Betain (Methyl Protect) 1,000 mcg-3,400 mcg DFE-10 mg capsule (3 sources) Start: 07-06-2023 End: 02-05-2024 take 1 capsule by mouth once daily Xvnnleqna-Haihgn-J 6-B2-Betain (Methyl Protect) 1,000 mcg-3,400 mcg DFE-10 mg capsule Discontinued 1 NMA PO DAILY July 06, 2023 1:00am February 05, 2024 1:26pm Start: 07-06-2023 End: 02-05-2024 take 1 capsule by mouth once daily Nnkivzgxd-Iznocl-W9-B2-Betain (Methyl Protect) 1,000 mcg-3,400 mcg DFE-10 mg [...] 06, 2023 1:00am October 21, 2024 11:50am Sd-Yn-Saqn-Fa-Ca Carb-Vit K (One-A-Day Womens Formula) 18 mg iron-400 mcg-500 mg tablet (3 sources) Start: 07-06-2023 End: 02-05-2024 Fr-Vm-Kgav-Fa-Ca Carb-Vit K (One-A-Day Womens Formula) 18 mg iron-400 mcg-500 mg tablet Discontinued 1 {tbl} PO DAILY July 06, 2023 1:00am February 05, 2024 1:26pm Start: 07-06-2023 End: 02-05-2024 Xn-Wa-Mcef-Fa-Ca Carb-Vit K (One-A-Day Womens Formula) 18 mg [...] aftercare (3 sources) Drug therapy finding; Translations: [half-way (current) use of systemic steroids] 04-08-2024 Episodic [...] 01-22-2025 C-REACTIVE PROT 4.12 mg/L High 0.0-3.0 [facility] Comment on above: Performed By: #### L 501.6710, L101.9900 #### [facility] [address] [place], [place], [id number] Erythrocyte Sed Rateon 01-22 SED RATE 6 mm/hr Normal 0-30 [facility] Comment on above: Performed By: #### L 501.6710, L101.9900 #### [facility] [address] [place], [place], [id number] Erythrocyte sedimentation ra teOrdered By: Deirdre Lozano on 01-22-2025 ESR (Bld) [Velocity] 6 mm/h 0-30 [facility] Serum or plasma C reactive p rotein measurement (mass/volume)Ordered By: Deirdre Lozano on 01-22-2025 CRP [Mass/Vol] 4.12 mg/L High 0.0-3.0 [facility] CRPon 11-22-2024 C-REACTIVE PROT 5.07 mg/L High 0.0-3.0 [facility] Comment on above: Performed By: #### L 501.6710, L101.9900 #### [facility] [address] [place], [place], [address] CRP [Mass/Vol]Ordered By: Addison Lozano on 11-22-2024 C-Reactive Protein Extended Range 5.07 mg/L High 0.0-3.0 [facility] Erythrocyte Sed Rateon 11-22 SED RATE 2 mm/hr Normal 0- [facility] Comment on above: Performed By: #### L 501.6710, L101.9900 #### [facility] [address] [place], [place], [id number] Erythrocyte sedimentation ra teOrdered By: Deirdre Lozano on 11-22-2024 ESR (Bld) [Velocity] 2 mm/h 0- [facility] Serum or plasma C reactive p rotein measurement (mass/volume)Ordered By: Deirdre Lozano on 11-22-2024 CRP [Mass/Vol] 5.07 mg/L High 0.0-3.0 [facility] 97-[id number]-Nwkbbcq DOrdered By: Renay Vallejo on 10-21-2024 Vitamin D 25-Hydroxy 70.6 ng/mL [facility] Comment on above: Vitamin D 25(OH) Sta tus Range Deficiency <20 ng/mL (50nmol/L) Insufficiency 20 - 30 ng/mL (50 - 75 nmol/L) Sufficiency 30 - 100 ng/mL (75 - 250 nmol/L) Toxicity >100 ng/mL (>250 nmol/L) Absolute lymphocyte countOrd ered By: Shivani Vallejo on 10-21-2024 Lymphocytes Auto (Unsp spec) [#/Vol] 3.10 10*3/uL 0.83-4.51 [facility] Absolute neutrophil countOrd ered By: Shivani Vallejo on 10-21-2024 Neutrophils (Bld) [#/Vol] 5.2 10*3/uL 2.0-7.7 [facility] Albumin to globulin ratioOrd ered By: Shivani Vallejo on 10-21-2024 Albumin/Globulin [Mass ratio] 1.1 {ratio} 0.9-2.4 [facility] Automated lymphocyte count a s percentage of total leukocytesOrdered By: Padminialtagraciakattyjayla Avilabelénrenay on 10-21-2024 Lymphocytes/100 WBC Auto (Unsp spec) 33.9 % 19- [facility] Basophil percentageOrdered B y: Lakshmijayla Avilabelénrenay on 10-21-2024 Basophils/100 WBC (Bld) 0.4 % 0-1 [facility] Bilirubin, totalOrdered By: Lakshmijayla Avilabelénrenay on 10-21-2024 Bilirubin [Mass/Vol] 0.30 mg/dL 0.20-1.00 [facility] Comment on above: For patients on eltr ombopag therapy, use of Dimension Mosby TBIL is not recommended. Blood urea nitrogen (BUN)/cr eatinine ratioOrdered By: Padminialtagraciakattyjayla Avilabelénrenay on 10-21-2024 Urea nitrogen/Creatinine [Mass ratio] 18.3 mg/mg 10-20 [facility] CBC W/Diff, Automatedon 09-29 Absolute Lymph 3.10 X10 3/uL Normal 0.83-4.51 [facility] Comment on above: Performed By: #### L 506.1000, L500.4050, L100.0100 #### [facility] [address] [place], [address] Absolute Neut 5.2 X10 3/uL Normal 2.0-7.7 [facility] Comment on above: Performed By: #### L 506.1000, L500.4050, L100.0100 #### [facility] [address] [place], [address] Basophils/100 WBC (Bld) 0.4 % Normal 0-1 [facility] Comment on above: Performed By: #### L 506.1000, L500.4050, L100.0100 #### [facility] [address] [place], [address] Eosinophils/100 WBC (Bld) 1.4 % Normal 0-5 [facility] Comment on above: Performed By: #### L 506.1000, L500.4050, L100.0100 #### [facility] [address] [place], [address] Erythrocyte distribution width (RBC) [Ratio] 13.2 % Normal 11.6-14.6 [facility] Comment on above: Performed By: #### L 506.1000, L500.4050, L100.0100 #### [facility] [address] [place], [address] Hematocrit (Bld) [Volume fraction] 44.2 % Normal 37-47 [facility] Comment on above: Performed By: #### L 506.1000, L500.4050, L100.0100 #### [facility] [address] [place], [address] Hemoglobin (Bld) [Mass/Vol] 14.0 g/dL Normal 12.0-15.0 [facility] Comment on above: Performed By: #### L 506.1000, L500.4050, L100.0100 #### [facility] [address] [place], [address] IG% 0.400 Normal 0.0-0.9 [facility] Comment on above: Result Comment: IG% - Immature Granulocytes (promyelocytes, myelocytes and metamyelocytes) > 1% indicates that a LEFT SHIFT is Present. Performed By: #### L 506.1000, L500.4050, L100.0100 #### [facility] [address] [place], [address] Lymphocytes/100 WBC (Bld) 33.9 % Normal 19-41 [facility] Comment on above: Performed By: #### L 506.1000, L500.4050, L100.0100 #### [facility] [address] [place], [address] MCH (RBC) [Entitic mass] 29.6 pg Normal 27.0-32.0 [facility] Comment on above: Performed By: #### L 506.1000, L500.4050, L100.0100 #### [facility] [address] [place], [address] MCHC (RBC) [Mass/Vol] 31.7 g/dL Low 32-36 [facility] Comment on above: Performed By: #### L 506.1000, L500.4050, L100.0100 #### [facility] [address] [place], [address] MCV (RBC) [Entitic vol] 93.4 fL Normal 81-99 [facility] Comment on above: Performed By: #### L 506.1000, L500.4050, L100.0100 #### [facility] [address] [place], [address] Monocytes/100 WBC (Bld) 6.9 % Normal 0-10 [facility] Comment on above: Performed By: #### L 506.1000, L500.4050, L100.0100 #### [facility] [address] [place], [address] Neutrophils/100 WBC (Bld) 57.0 % Normal 47-70 [facility] Comment on above: Performed By: #### L 506.1000, L500.4050, L100.0100 #### [facility] [address] [place], [address] Nucleated RBC (Bld) [#/Vol] 0 10*3/uL Normal 0-5 [facility] Comment on above: Performed By: #### L 506.1000, L500.4050, L100.0100 #### [facility] [address] [place], [address] Platelet mean volume (Bld) [Entitic vol] 10.1 fL Normal 6.2-12.0 [facility] Comment on above: Performed By: #### L 506.1000, L500.4050, L100.0100 #### [facility] [address] [place], [address] Platelets (Bld) [#/Vol] 254 10*3/uL Normal 150-450 [facility] Comment on above: Performed By: #### L 506.1000, L500.4050, L100.0100 #### [facility] [address] [place], [address] RBC (Bld) [#/Vol] 4.73 10*6/uL Normal 4.2-5.4 [facility] Comment on above: Performed By: #### L 506.1000, L500.4050, L100.0100 #### [facility] [address] [place], [address] RDW SD 45.8 fl High 35.1-43.9 [facility] Comment on above: Performed By: #### L 506.1000, L500.4050, L100.0100 #### [facility] [address] [place], [address] WBC (Bld) [#/Vol] 9.2 10*3/uL Normal 4.4-11.[address] [facility] Comment on above: Performed By: #### L 506.1000, L500.4050, L100.0100 #### [facility] [address] [place], [address] Carbon dioxide measurementOr dered By: Shivani Vallejo on 10-21-2024 CO2 [Moles/Vol] 29.0 mmol/L 21.0-32.0 [facility] Chloride measurementOrdered By: Shivani Vallejo on 10-21-2024 Chloride [Moles/Vol] 106 mmol/L 98-107 [facility] Comprehensive Metabolic Prof ilon 10-21-2024 Albumin [Mass/Vol] 3.6 g/dL Normal 3.2-5.[address] [facility] Comment on above: Performed By: #### L 506.1000, L500.4050, L100.0100 #### [facility] [address] [place], [address] Albumin/Globulin [Mass ratio] 1.1 {ratio} Normal 0.9-2.4 [facility] Comment on above: Performed By: #### L 506.1000, L500.4050, L100.0100 #### [facility] [address] [place], [address] ALK P 71 U/L Normal 45-117 [facility] Comment on above: Performed By: #### L 506.1000, L500.4050, L100.0100 #### [facility] [address] [place], [address] ALT [Catalytic activity/Vol] 39 U/L Normal 13-56 [facility] Comment on above: Performed By: #### L 506.1000, L500.4050, L100.0100 #### [facility] [address] [place], [address] AST [Catalytic activity/Vol] 21 U/L Normal 15-37 [facility] Comment on above: Performed By: #### L 506.1000, L500.4050, L100.0100 #### [facility] [address] [place], [address] Bilirubin [Mass/Vol] 0.30 mg/dL Normal 0.20-1.00 [facility] Comment on above: Result Comment: For patients on eltrombopag therapy, use of Dimension Mosby TBIL is not recommended. Performed By: #### L 506.1000, L500.4050, L100.0100 #### [facility] [address] [place], [address] BUN/CRE 18.3 RATIO Normal 10-20 [facility] Comment on above: Performed By: #### L 506.1000, L500.4050, L100.0100 #### [facility] [address] [place], [address] CA,Total 9.7 mg/dL Normal 8.5-10.1 [facility] Comment on above: Performed By: #### L 506.1000, L500.4050, L100.0100 #### [facility] [address] [place], [address] Chloride [Moles/Vol] 106 mmol/L Normal 98-107 [facility] Comment on above: Performed By: #### L 506.1000, L500.4050, L100.0100 #### [facility] [address] [place], [address] CO2 [Moles/Vol] 29.0 mmol/L Normal 21.0-32.0 [facility] Comment on above: Performed By: #### L 506.1000, L500.4050, L100.0100 #### [facility] [address] [place], [address] Creatinine [Mass/Vol] 0.65 mg/dL Normal 0.55-1.02 [facility] Comment on above: Result Comment: The validity of the calculated GFR GFRAA in patients over 70 years has not been determined. Clinical correlation is essential. Performed By: #### L 506.1000, L500.4050, L100.0100 #### [facility] [address] [place], [address] EST GFR - AA 114 mL/min Normal >60 [facility] Comment on above: Result Comment: Afri can Scottish GFR Calc Performed By: #### L 506.1000, L500.4050, L100.0100 #### [facility] [address] [place], [address] GAP 6 Normal 5-15 [facility] Comment on above: Performed By: #### L 506.1000, L500.4050, L100.0100 #### [facility] [address] [place], [address] GFR/1.73 sq M.predicted among non-blacks MDRD (S/P/Bld) [Vol rate/Area] 94 mL/min/{1.73_m2} Normal >60 [facility] Comment on above: Result Comment: Non- GFR Calc Performed By: #### L 506.1000, L500.4050, L100.0100 #### [facility] [address] [place], [address] Globulin (S) [Mass/Vol] 3.3 g/dL Normal 2.2-4.2 [facility] Comment on above: Performed By: #### L 506.1000, L500.4050, L100.0100 #### [facility] [address] [place], [address] Glucose [Mass/Vol] 87 mg/dL Normal 74-[address] [facility] Comment on above: Performed By: #### L 506.1000, L500.4050, L100.0100 #### [facility] [address] [place], [address] Potassium [Moles/Vol] 3.6 mmol/L Normal 3.5-5.1 [facility] Comment on above: Performed By: #### L 506.1000, L500.4050, L100.0100 #### [facility] [address] [place], [address] Sodium [Moles/Vol] 141 mmol/L Normal 136-[address] [facility] Comment on above: Performed By: #### L 506.1000, L500.4050, L100.0100 #### [facility] [address] [place], [address] T PROT 6.9 g/dL Normal 6.4-8.2 [facility] Comment on above: Performed By: #### L 506.1000, L500.4050, L100.0100 #### [facility] [address] [place], [address] Urea nitrogen [Mass/Vol] 12 mg/dL Normal 7-18 [facility] Comment on above: Performed By: #### L 506.1000, L500.4050, L100.0100 #### [facility] [address] [place], [address] Eosinophil percentageOrdered By: Shivani Vallejo on 10-21-2024 Eosinophils/100 WBC (Bld) 1.4 % 0-5 [facility] Erythrocyte distribution wid th ratioOrdered By: Shivani Vallejo on 10-21-2024 Erythrocyte distribution width (RBC) [Ratio] 13.2 % 11.6-14.6 [facility] Erythrocyte distribution wid th standard deviationOrdered By: Shivani Vallejo on 10-21-2024 Erythrocyte distribution width (RBC) [Entitic vol] 45.8 fL High 35.1-43.9 [facility] Erythrocyte distribution width (RBC) [Ratio] 45.8 fl High 35.1-43.9 [facility] Estimated glomerular filtrat ion rate (GFR) AmericanOrdered By: Shivani Vallejo on 10-21-2024 Estimated GFR (MDRD) Amer 114 mL/min >60 [facility] Comment on above: GFR Calc Glomerular filtration rate ( GFR) estimationOrdered By: Shivani Vallejo on 10-21-2024 Estimated GFR (MDRD) Non-Af Amer 94 mL/min >60 [facility] Comment on above: Non- GFR Calc GFR/1.73 sq M.predicted among non-blacks MDRD (S/P/Bld) [Vol rate/Area] 94 mL/min/{1.73_m2} >60 [facility] Comment on above: Non- GFR Calc Glucose measurementOrdered B y: Shivani Vallejo on 10-21-2024 Glucose [Mass/Vol] 87 mg/dL 74-[address] [facility] Hematocrit Auto (Bld) [Volum e fraction]Ordered By: Shivani Vallejo on 10-21-2024 Hematocrit (Bld) [Volume fraction] 44.2 % 37-47 [facility] Hemoglobin measurementOrdere d By: Shivani Vallejo on 10-21-2024 Hemoglobin (Bld) [Mass/Vol] 14.0 g/dL 12.0-15.0 [facility] Immature granulocytes/100 WB C Auto (Bld)Ordered By: Shivani Vallejo on 10-21-2024 Immature granulocytes/100 WBC (Bld) 0.400 % 0.0-0.9 [facility] Comment on above: IG% - Immature Granu locytes (promyelocytes, myelocytes and metamyelocytes) > 1% indicates that a LEFT SHIFT is Present. Internal Medicine Office Vis rosibel 10-21-2024 Internal Medicine Office Visit [facility] [address] [place] [address] [place] [address] OFFICE VISIT Date of Service: 10/21/24 MR#: [id number] Acct: [id number] Name: DEYANIRA FELIX Rep #: [id number] : 1950 Provider: Dr. Shivani prado MD Age/Sex: 74/F Location: [facility] Status: Signed Intake Vital Signs 04/08/24 14:35 [...] Follow Up Chief Complaint: Follow-up chronic conditions Blending Supervisor Required: No Accompanied by: Is patient in [...] in the past year?: No Nurse's Note: [facility] Medical History (Updated 10/21/24 @ 11:33 by [...] Orientation: alert, (more content not included)... Normal [facility] - Chemistry and C hemistry - challengeOrdered By: Shivani Vallejo on 10-21-2024 AST [Catalytic activity/Vol] 21 U/L 15-37 [facility] Lymphocytes Auto (Unsp spec) [#/Vol]Ordered By: Shivani Vallejo on 10-21-2024 Lymphocytes (Bld) [#/Vol] 3.10 10*3/uL 0.83-4.51 [facility] Lymphocytes/100 WBC Auto (Un sp spec)Ordered By: Lakshmijayla Avilabelénrenay on 10-21-2024 Lymphocytes/100 WBC (Bld) 33.9 % 19-41 [facility] MCV (mean corpuscular volume ) determinationOrdered By: Shivani Avilabelénrenay on 10-21-2024 MCV (RBC) [Entitic vol] 93.4 fL 81-99 [facility] Mean corpuscular hemoglobin (MCH) determinationOrdered By: Shivani Avilabelénrenay on 10-21-2024 MCH (RBC) [Entitic mass] 29.6 pg 27.0-32.0 [facility] Mean corpuscular hemoglobin concentration (MCHC) determinationOrdered By: Shivani Avilabelénrenay on 10-21-2024 MCHC (RBC) [Mass/Vol] 31.7 g/dL Low 32-36 [facility] Mean platelet volume determi nationOrdered By: Chriskattyjayla Avilabelénrenay on 10-21-2024 Platelet mean volume (Bld) [Entitic vol] 10.1 fL 6.2-12.0 [facility] Monocyte percentageOrdered B y: Padminialtagraciakattyjayla Avilabelénrenay on 10-21-2024 Monocytes/100 WBC (Bld) 6.9 % 0-10 [facility] Neutrophil percentageOrdered By: Shivani Vallejo on 10-21-2024 Neutrophils/100 WBC (Bld) 57.0 % 47-70 [facility] Nucleated red blood cell per centageOrdered By: Shivani Vallejo on 10-21-2024 Nucleated RBC/100 WBC (Bld) [Ratio] 0 % 0-5 [facility] Platelet countOrdered By: Padmini alyciajayla Avilabelénrenay on 10-21-2024 Platelets (Bld) [#/Vol] 254 10*3/uL 150-450 [facility] Potassium measurementOrdered By: Shivani Vallejo on 10-21-2024 Potassium [Moles/Vol] 3.6 mmol/L 3.5-5.1 [facility] RBC Auto (Bld) [#/Vol]Ordere d By: Shivani Vallejo on 10-21-2024 RBC (Bld) [#/Vol] 4.73 10*6/uL 4.2-5.4 [facility] Serum anion gap measurementO rdered By: Shivani Vallejo on 10-21-2024 Anion gap [Moles/Vol] 6 mmol/L 5-15 [facility] Serum globulin measurementOr dered By: Shivani Vallejo on 10-21-2024 Globulin (S) [Mass/Vol] 3.3 g/dL 2.2-4.2 [facility] Serum or plasma alanine clifford otransferase (ALT) measurementOrdered By: Shivani Vallejo on 10-21-2024 ALT [Catalytic activity/Vol] 39 U/L 13-56 [facility] Serum or plasma albumin gaye urement (mass/volume)Ordered By: Shivani Vallejo on 10-21-2024 Albumin [Mass/Vol] 3.6 g/dL 3.2-5.[address] [facility] Serum or plasma alkaline hernan sphatase measurementOrdered By: Shivani Vallejo on 10-21-2024 ALP [Catalytic activity/Vol] 71 U/L 45-117 [facility] Serum or plasma calcium gaye urement (mass/volume)Ordered By: Shivani Vallejo on 10-21-2024 Calcium [Mass/Vol] 9.7 mg/dL 8.5-10.[address] [facility] Serum or plasma creatinine m easurement (mass/volume)Ordered By: Shivani Vallejo on 10-21-2024 Creatinine [Mass/Vol] 0.65 mg/dL 0.55-1.02 [facility] Comment on above: The validity of the calculated GFR & GFRAA in patients over 70 years has not been determined. Clinical correlation is essential. Serum or plasma urea nitroge n measurement (mass/volume)Ordered By: Shivani Vallejo on 10-21-2024 Urea nitrogen [Mass/Vol] 12 mg/dL 7-18 [facility] Sodium levelOrdered By: Chris Vallejo on 10-21-2024 Sodium [Moles/Vol] 141 mmol/L 136-[address] [facility] Total proteinOrdered By: Noel oly Austinbelénrenay on 10-21-2024 Protein [Mass/Vol] 6.9 g/dL 6.4-8.[address] [facility] Vitamin D,25 Hydroxyon 10-21 Vitamin D 25-OH 70.6 ng/mL Normal [facility] Comment on above: Result Comment: Diamond min D 25(OH) Status Range Deficiency <20 ng/mL (50nmol/L) Insufficiency 20 - 30 ng/mL (50 - 75 nmol/L) Sufficiency 30 - 100 ng/mL (75 - 250 nmol/L) Toxicity >100 ng/mL (>250 nmol/L) Performed By: #### L 506.1000, L500.4050, L100.0100 #### [facility], [address] White blood cell (WBC) count Ordered By: Shivani Vallejo on 10-21-2024 WBC (Bld) [#/Vol] 9.2 10*3/uL 4.4-11.[address] [facility] C-reactive protein measureme nt by high sensitivity methodOrdered By: Deirdre Lozano on 10-03-2024 C-Reactive Protein Extended Range 8.49 mg/L High 0.0-3.0 [facility] Comment on above: C-Reactive Protein ( CRP) provides useful information for thediagnosis, therapy and monitoring of inflammatory processesand associated diseases. For the evaluation of Relative Riskfor Cardiovascular Disease, a High Sensitivity CRP (HSCRP)should be ordered. C-reactive protein measurement by high sensitivity method 8.49 mg/L High 0.0-3.0 [facility] Comment on above: C-Reactive Protein ( CRP) provides useful information for thediagnosis, therapy and monitoring of inflammatory processesand associated diseases. For the evaluation of Relative Riskfor Cardiovascular Disease, a High Sensitivity CRP (HSCRP)should be ordered. CRPon 10-03-2024 C-REACTIVE PROT 8.49 mg/L High 0.0-3.0 [facility] Comment on above: Result Comment: C-Re active Protein (CRP) provides useful information for the diagnosis, therapy and monitoring of inflammatory processes and associated diseases. For the evaluation of Relative Risk for Cardiovascular Disease, a High Sensitivity CRP (HSCRP) should be ordered. Performed By: #### L 501.6710, L101.9900 #### [facility] [address] [place], [address] Erythrocyte Sed Rateon 10-03 SED RATE 14 mm/hr Normal 0-30 [facility] Comment on above: Performed By: #### L 501.6710, L101.9900 #### [facility] [address] [place], [address] Erythrocyte sedimentation ra teOrdered By: Deirdre Lozano on 10-03-2024 ESR (Bld) [Velocity] 14 mm/h 0-30 [facility] C-reactive protein measureme nt by high sensitivity methodOrdered By: Deirdre Lozano on 08-03-2024 C-Reactive Protein Extended Range 4.99 mg/L High 0.0-3.0 [facility] Comment on above: C-Reactive Protein ( CRP) provides useful information for thediagnosis, therapy and monitoring of inflammatory processesand associated diseases. For the evaluation of Relative Riskfor Cardiovascular Disease, a High Sensitivity CRP (HSCRP)should be ordered. CRPon 08-03-2024 C-REACTIVE PROT 4.99 mg/L High 0.0-3.0 [facility] Comment on above: Result Comment: C-Re active Protein (CRP) provides useful information for the diagnosis, therapy and monitoring of inflammatory processes and associated diseases. For the evaluation of Relative Risk for Cardiovascular Disease, a High Sensitivity CRP (HSCRP) should be ordered. Performed By: #### L 501.6710, L101.9900 #### [facility] [address] [place], [address] Erythrocyte Sed Rateon 08-03 SED RATE 7 mm/hr Normal 0-[address] [place] [address] Comment on above: Performed By: #### L 501.6710, L101.9900 #### [facility] [address] [place], [place], [address] Erythrocyte sedimentation ra teOrdered By: Deirdre Lozano on 08-03-2024 ESR (Bld) [Velocity] 7 mm/h 0- [facility] C-reactive protein measureme nt by high sensitivity methodOrdered By: Deirdre Lozano on 07-06-2024 C-Reactive Protein Extended Range 5.18 mg/L High 0.0-3.0 [facility] Comment on above: C-Reactive Protein ( CRP) provides useful information for thediagnosis, therapy and monitoring of inflammatory processesand associated diseases. For the evaluation of Relative Riskfor Cardiovascular Disease, a High Sensitivity CRP (HSCRP)should be ordered. CRPon 07-06-2024 C-REACTIVE PROT 5.18 mg/L High 0.0-3.0 [facility] Comment on above: Result Comment: C-Re active Protein (CRP) provides useful information for the diagnosis, therapy and monitoring of inflammatory processes and associated diseases. For the evaluation of Relative Risk for Cardiovascular Disease, a High Sensitivity CRP (HSCRP) should be ordered. Performed By: #### L 501.6710, L101.9900 #### [facility] [address] [place], [place], [id number] ([address]) Erythrocyte Sed Rateon 07-06 SED RATE 17 mm/hr Normal - [facility] Comment on above: Performed By: #### L 501.6710, L101.9900 #### [facility] [address] [place], [address] Erythrocyte sedimentation ra teOrdered By: Deirdre Lozano on 07-06-2024 ESR (Bld) [Velocity] 17 mm/h 0-30 [facility] CRPon 05-27-2024 C-REACTIVE PROT 4.38 mg/L High 0.0-3.0 [facility] Comment on above: Result Comment: C-Re active Protein (CRP) provides useful information for the diagnosis, therapy and monitoring of inflammatory processes and associated diseases. For the evaluation of Relative Risk for Cardiovascular Disease, a High Sensitivity CRP (HSCRP) should be ordered. Performed By: #### L 101.9900, L501.6710 #### [facility] [address] [place], [address] Erythrocyte Sed Rateon 05-27 SED RATE 6 mm/hr Normal 0-30 [facility] Comment on above: Performed By: #### L 101.9900, L501.6710 #### [facility] [address] [place], [address] Dexa Bone Density Studyon Dexa Bone Density Study [facility] Imaging Services [address] [place] [id number] Dexa Bone Density Study MR#: [id number] Acct: [id number] Name: DEYANIRA FELIX Rep #: [id number] : 1950 F 74 From: Natan washington MD PCP: Dr. Shivani Vallejo MD Status: [facility] Study: Dexa Bone Density Study Date of Exam: 04/25/24 Exam# [id number] Ordering Dr: Shivani Vallejo MD -[id number] STUDY: DUAL ENERGY X-RAY ABSORPTIOMETRY / [...] EDT , CC: Dr. Shivani Vallejo MD Still Operator: Signed Normal [facility] CRPon 04-13-2024 C-REACTIVE PROT 11.80 mg/L High 0.0-3.0 [facility] Comment on above: Result Comment: C-Re active Protein (CRP) provides useful information for the diagnosis, therapy and monitoring of inflammatory processes and associated diseases. For the evaluation of Relative Risk for Cardiovascular Disease, a High Sensitivity CRP (HSCRP) should be ordered. Performed By: #### L 501.6710, L101.9900 #### [facility] [address] [place], [address] Erythrocyte Sed Rateon 04-13 SED RATE 11 mm/hr Normal 0-30 [facility] Comment on above: Performed By: #### L 501.6710, L101.9900 #### [facility] [address] [place], [address] Internal Medicine Office Vis iton 04-08-2024 Internal Medicine Office Visit [facility] [address] [place] [address] [place] [address] OFFICE VISIT Date of Service: 04/08/24 MR#: [id number] Acct: [id number] Name: DEYANIRA FELIX Rep #: [id number] : 1950 Provider: Dr. 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 Normal [facility] CCP IgG Antibodieson 024 CCP IgG Ab. 27 units High 0-19 [facility] Comment on above: Result Comment: Nega tive <20 Weak positive 20 - 39 Moderate positive 40 - 59 Strong positive >59 Performed at: - [facility] [id number] Firmware Developer: Liam Chong PhD, Phone: [phone] Performed By: #### L 209.7187, L136.2908 #### [facility] [place], [address] Quantiferon TB-Gold+on 03-29 QFT MITOGEN SANDY > 10.00 Normal . [facility] Comment on above: Performed By: #### L 501.6710, L101.9900 #### [facility] [address] [place], [address] QFT NIL VALUE 0.02 IU/mL Normal . [facility] Comment on above: Performed By: #### L 501.6710, L101.9900 #### [facility] [address] [place], [address] QFT TB GOLD+ Comment Normal . [facility] Comment on above: Result Comment: Raul tiFERON-TB [...] Performed By: #### L 501.6710, L101.9900 #### [facility] [address] [place], [address] QFT TB POS CRIT Negative Normal Negative [facility] Comment on above: Result Comment: No r [...] Performed By: #### L 501.6710, L101.9900 #### [facility] [address] [place], [address] QFT TB1+ AG SANDY 0.02 IU/mL Normal . [facility] Comment on above: Performed By: #### L 501.6710, L101.9900 #### [facility] [address] [place], [address] QFT TB2+ AG SANDY 0.03 IU/mL Normal . [facility] Comment on above: Performed By: #### L 501.6710, L101.9900 #### [facility] [address] [place], [address] CBC W/Diff, Automatedon 07-3 Absolute Lymph 1.84 X10 3/uL Normal 0.83-4.51 [facility] Comment on above: Performed By: #### L 101.9900, L501.6710 #### [facility] [address] [place], [address] Absolute Neut 7.6 X10 3/uL Normal 2.0-7.7 [facility] Comment on above: Performed By: #### L 101.9900, L501.6710 #### [facility] [address] [place], [address] Basophils/100 WBC (Bld) 0.4 % Normal 0-1 [facility] Comment on above: Performed By: #### L 101.9900, L501.6710 #### [facility] [address] [place], [address] Eosinophils/100 WBC (Bld) 0.6 % Normal 0-5 [facility] Comment on above: Performed By: #### L 101.9900, L501.6710 #### [facility] [address], [address] Erythrocyte distribution width (RBC) [Ratio] 12.3 % Normal 11.6-14.6 [facility] Comment on above: Performed By: #### L 101.9900, L501.6710 #### [facility] [address] [place], [address] Hematocrit (Bld) [Volume fraction] 40.2 % Normal 37-47 [facility] Comment on above: Performed By: #### L 101.9900, L501.6710 #### [facility] [address] [place], [address] Hemoglobin (Bld) [Mass/Vol] 12.8 g/dL Normal 12.0-15.0 [facility] Comment on above: Performed By: #### L 101.9900, L501.6710 #### [facility] [address] [place], [address] IG% 0.500 Normal 0.0-0.9 [facility] Comment on above: Result Comment: IG% - Immature Granulocytes (promyelocytes, myelocytes and metamyelocytes) > 1% indicates that a LEFT SHIFT is Present. Performed By: #### L 101.9900, L501.6710 #### [facility] [address] [place], [address] Lymphocytes/100 WBC (Bld) 18.1 % Low 19-41 [facility] Comment on above: Performed By: #### L 101.9900, L501.6710 #### [facility] [address] [place], [address] MCH (RBC) [Entitic mass] 29.1 pg Normal 27.0-32.0 [facility] Comment on above: Performed By: #### L 101.9900, L501.6710 #### [facility] [address] [place], [address] MCHC (RBC) [Mass/Vol] 31.8 g/dL Low 32-36 [facility] Comment on above: Performed By: #### L 101.9900, L501.6710 #### [facility] [address] [place], [address] MCV (RBC) [Entitic vol] 91.4 fL Normal 81-99 [facility] Comment on above: Performed By: #### L 101.9900, L501.6710 #### [facility] [address] [place], [address] Monocytes/100 WBC (Bld) 5.4 % Normal 0-10 [facility] Comment on above: Performed By: #### L 101.9900, L501.6710 #### [facility] [address] [place], [address] Neutrophils/100 WBC (Bld) 75.0 % High 47-70 [facility] Comment on above: Performed By: #### L 101.9900, L501.6710 #### [facility] [address] [place], [address] Nucleated RBC (Bld) [#/Vol] 0 10*3/uL Normal 0-5 [facility] Comment on above: Performed By: #### L 101.9900, L501.6710 #### [facility] [address] [place], [address] Platelet mean volume (Bld) [Entitic vol] 9.6 fL Normal 6.2-12.0 [facility] Comment on above: Performed By: #### L 101.9900, L501.6710 #### [facility] [address] [place], [address] Platelets (Bld) [#/Vol] 278 10*3/uL Normal 150-450 [facility] Comment on above: Performed By: #### L 101.9900, L501.6710 #### [facility] [address] [place], [address] RBC (Bld) [#/Vol] 4.40 10*6/uL Normal 4.2-5.4 [facility] Comment on above: Performed By: #### L 101.9900, L501.6710 #### [facility] [address] [place], [address] RDW SD 41.3 fl Normal 35.1-43.9 [facility] Comment on above: Performed By: #### L 101.9900, L501.6710 #### [facility] [address] [place], [address] WBC (Bld) [#/Vol] 10.2 10*3/uL Normal 4.4-11.0 [facility] Comment on above: Performed By: #### L 101.9900, L501.6710 #### [facility] [address] [place], [address] CRPon 03-27-2024 C-REACTIVE PROT 19.40 mg/L High 0.0-3.0 [facility] Comment on above: Result Comment: C-Re active Protein (CRP) provides useful information for the diagnosis, therapy and monitoring of inflammatory processes and associated diseases. For the evaluation of Relative Risk for Cardiovascular Disease, a High Sensitivity CRP (HSCRP) should be ordered. Performed By: #### L 501.6710, L101.9900 #### [facility] [address] [place], [address] Comprehensive Metabolic Prof ilon 03-27-2024 Albumin [Mass/Vol] 3.4 g/dL Normal 3.2-5.[address] [facility] Comment on above: Performed By: #### L 101.9900, L501.6710 #### [facility] [address] [place], [address] Albumin/Globulin [Mass ratio] 1.0 {ratio} Normal 0.9-2.4 [facility] Comment on above: Performed By: #### L 101.9900, L501.6710 #### [facility] [address] [place], [address] ALK P 68 U/L Normal 45-117 [facility] Comment on above: Performed By: #### L 101.9900, L501.6710 #### [facility] [address] [place], [address] ALT [Catalytic activity/Vol] 27 U/L Normal 13-56 [facility] Comment on above: Performed By: #### L 101.9900, L501.6710 #### [facility] [address] [place], [address] AST [Catalytic activity/Vol] 19 U/L Normal 15-37 [facility] Comment on above: Performed By: #### L 101.9900, L501.6710 #### [facility] [address] [place], [address] Bilirubin [Mass/Vol] 0.30 mg/dL Normal 0.20-1.00 [facility] Comment on above: Result Comment: For patients on eltrombopag therapy, use of Dimension Mosby TBIL is not recommended. Performed By: #### L 101.9900, L501.6710 #### [facility] [address] [place], [address] BUN/CRE 27.1 RATIO High 10-20 [facility] Comment on above: Performed By: #### L 101.9900, L501.6710 #### [facility] [address] [place], [address] CA,Total 9.2 mg/dL Normal 8.5-10.1 [facility] Comment on above: Performed By: #### L 101.9900, L501.6710 #### [facility] [address] [place], [address] Chloride [Moles/Vol] 106 mmol/L Normal 98-107 [facility] Comment on above: Performed By: #### L 101.9900, L501.6710 #### [facility] [address] [place], [address] CO2 [Moles/Vol] 27.0 mmol/L Normal 21.0-32.0 [facility] Comment on above: Performed By: #### L 101.9900, L501.6710 #### [facility] [address] [place], [address] Creatinine [Mass/Vol] 0.59 mg/dL Normal 0.55-1.02 [facility] Comment on above: Result Comment: The validity of the calculated GFR GFRAA in patients over 70 years has not been determined. Clinical correlation is essential. Performed By: #### L 101.9900, L501.6710 #### [facility] [address] [place], [address] EST GFR - AA 128 mL/min Normal >60 [facility] Comment on above: Result Comment: Afri can Scottish GFR Calc Performed By: #### L 101.9900, L501.6710 #### [facility] [address] [place], [address] GAP 5 Normal 5-15 [facility] Comment on above: Performed By: #### L 101.9900, L501.6710 #### [facility] [address] [place], [address] GFR/1.73 sq M.predicted among non-blacks MDRD (S/P/Bld) [Vol rate/Area] 106 mL/min/{1.73_m2} Normal >60 [facility] Comment on above: Result Comment: Non- GFR Calc Performed By: #### L 101.9900, L501.6710 #### [facility] [address] [place], [address] Globulin (S) [Mass/Vol] 3.5 g/dL Normal 2.2-4.2 [facility] Comment on above: Performed By: #### L 101.9900, L501.6710 #### [facility] [address] [place], [address] Glucose [Mass/Vol] 102 mg/dL Normal 74-[address] [facility] Comment on above: Result Comment: Fast ing Glucose result from 100 to 125 mg/dL suggests IMPAIRED HOMEOSTASIS per A.D.A. criteria. Performed By: #### L 101.9900, L501.6710 #### [facility] [address] [place], [address] Potassium [Moles/Vol] 3.8 mmol/L Normal 3.5-5.1 [facility] Comment on above: Performed By: #### L 101.9900, L501.6710 #### [facility] [address] [place], [address] Sodium [Moles/Vol] 138 mmol/L Normal 136-[address] [facility] Comment on above: Performed By: #### L 101.9900, L501.6710 #### [facility] [address] [place], [address] T PROT 6.9 g/dL Normal 6.4-8.2 [facility] Comment on above: Performed By: #### L 101.9900, L501.6710 #### [facility] [address] [place], [address] Urea nitrogen [Mass/Vol] 16 mg/dL Normal 7-18 [facility] Comment on above: Performed By: #### L 101.9900, L501.6710 #### [facility] [address] [place], [address] Erythrocyte Sed Rateon 03-27 SED RATE 22 mm/hr Normal 0-30 [facility] Comment on above: Performed By: #### L 101.9900, L501.6710 #### [facility] [address] [place], [address] Hepatitis B Surface Antibody on 03-27-2024 HEP B Surf Ab Non-Reactive Normal [facility] Comment on above: Result Comment: Non Reactive: Inconsistent with immunity less than <10 mIU/mL Reactive: Consistent with immunity greater than or equal to 10 mIU/mL Performed By: #### L 501.6710, L101.9900 #### [facility] [address], [address] Hepatitis B Surface Antigeno n 03-27-2024 HEP B Surf Ag Non-Reactive Normal Nonreactive [facility] Comment on above: Performed By: #### L 501.6710, L101.9900 #### [facility] [address] [place], [address] Hepatitis C Antibodyon 03-27 Hepatitis C AB Non-Reactive Normal Nonreactive [facility] Comment on above: Result Comment: Non Reactive: < 0.8 Equivocal: >/= 0.8 to < 1.0 Reactive: >/= 1.0 The CDC requires that a reactive/equivocal HCV antibody result be sent out for confirmation. HCV Quant by PCR testing. Performed By: #### L 501.6710, L101.9900 #### [facility] [address], [address] Pelvis 1 or 2 Viewson 2023 Pelvis 1 or 2 Views [facility] Imaging Services [address] [place] [address] Pelvis 1 or 2 Views MR#: [id number] Acct: [id number] Name: DEYANIRA FELIX Rep #: [id number] : 1950 F 73 From: Herb awad MD PCP: Dr. Shivani Vallejo MD Status: REG CLI Study: Pelvis 1 or 2 Views Date of Exam: 03/27/24 Exam# [id number] Ordering Dr: Deirdre Lozano MD -[id number] INDICATION: OA EXAMINATION/TECHNIQ UE: X-RAY - [...] 23:33 EDT Reading Location ID and State: [facility] / [place] Tel , Service support , CC: Dr. Shivani Vallejo MD; Dr. Deirdre Lozano MD Still Operator: Signed Normal [facility] Rheumatoid Factoron 03-27-20 24 RHEUMATOID FAC < 10.0 Normal <15 [facility] Comment on above: Performed By: #### L 501.6710, L101.9900 #### [facility] [address] [place], [place], [address] CBC W/Diff, Automatedon 07-0 -2023 Absolute Lymph 1.85 X10 3/uL Normal 0.83-4.51 [facility] Comment on above: Performed By: #### L 101.9900, L501.6710 #### [facility] [address] [place], [address] Absolute Neut 6.1 X10 3/uL Normal 2.0-7.7 [facility] Comment on above: Performed By: #### L 101.9900, L501.6710 #### [facility] [address] [facility], [address] Basophils/100 WBC (Bld) 0.6 % Normal 0-1 [facility] Comment on above: Performed By: #### L 101.9900, L501.6710 #### [facility] [address] [place], [address] Eosinophils/100 WBC (Bld) 0.5 % Normal 0-5 [facility] Comment on above: Performed By: #### L 101.9900, L501.6710 #### [facility] [address] [place], [address] Erythrocyte distribution width (RBC) [Ratio] 12.0 % Normal 11.6-14.6 [facility] Comment on above: Performed By: #### L 101.9900, L501.6710 #### [facility] [address] [place], [address] Hematocrit (Bld) [Volume fraction] 42.3 % Normal 37-47 [facility] Comment on above: Performed By: #### L 101.9900, L501.6710 #### [facility] [address] [place], [address] Hemoglobin (Bld) [Mass/Vol] 13.4 g/dL Normal 12.0-15.0 [facility] Comment on above: Performed By: #### L 101.9900, L501.6710 #### [facility] [address] [place], [address] IG% 0.600 Normal 0.0-0.9 [facility] Comment on above: Result Comment: IG% - Immature Granulocytes (promyelocytes, myelocytes and metamyelocytes) > 1% indicates that a LEFT SHIFT is Present. Performed By: #### L 101.9900, L501.6710 #### [facility] [address] [place], [address] Lymphocytes/100 WBC (Bld) 21.9 % Normal 19-41 [facility] Comment on above: Performed By: #### L 101.9900, L501.6710 #### [facility] [address] [place], [address] MCH (RBC) [Entitic mass] 29.5 pg Normal 27.0-32.0 [facility] Comment on above: Performed By: #### L 101.9900, L501.6710 #### [facility] [address] [place], [address] MCHC (RBC) [Mass/Vol] 31.7 g/dL Low 32-36 [facility] Comment on above: Performed By: #### L 101.9900, L501.6710 #### [facility] [address] [place], [address] MCV (RBC) [Entitic vol] 93.0 fL Normal 81-99 [facility] Comment on above: Performed By: #### L 101.9900, L501.6710 #### [facility] [address] [place], [address] Monocytes/100 WBC (Bld) 4.1 % Normal 0-10 [facility] Comment on above: Performed By: #### L 101.9900, L501.6710 #### [facility] [address] [place], [address] Neutrophils/100 WBC (Bld) 72.3 % High 47-70 [facility] Comment on above: Performed By: #### L 101.9900, L501.6710 #### [facility] [address] [place], [address] Nucleated RBC (Bld) [#/Vol] 0 10*3/uL Normal 0-5 [facility] Comment on above: Performed By: #### L 101.9900, L501.6710 #### [facility] [address] [place], [address] Platelet mean volume (Bld) [Entitic vol] 9.6 fL Normal 6.2-12.0 [facility] Comment on above: Performed By: #### L 101.9900, L501.6710 #### [facility] [address] [place], [address] Platelets (Bld) [#/Vol] 302 10*3/uL Normal 150-450 [facility] Comment on above: Performed By: #### L 101.9900, L501.6710 #### [facility] [address] [place], [address] RBC (Bld) [#/Vol] 4.55 10*6/uL Normal 4.2-5.4 [facility] Comment on above: Performed By: #### L 101.9900, L501.6710 #### [facility] [address] [place], [address] RDW SD 41.1 fl Normal 35.1-43.9 [facility] Comment on above: Performed By: #### L 101.9900, L501.6710 #### [facility] [address] [place], [address] WBC (Bld) [#/Vol] 8.4 10*3/uL Normal 4.4-11.[address] [facility] Comment on above: Performed By: #### L 101.9900, L501.6710 #### [facility] [address] [place], [address] CRPon 03-05-2024 C-REACTIVE PROT 11.40 mg/L High 0.0-3.0 [facility] Comment on above: Result Comment: C-Re active Protein (CRP) provides useful information for the diagnosis, therapy and monitoring of inflammatory processes and associated diseases. For the evaluation of Relative Risk for Cardiovascular Disease, a High Sensitivity CRP (HSCRP) should be ordered. Performed By: #### L 101.9900, L501.6710 #### [facility] [address] [place], [address] Comprehensive Metabolic Prof ilon 03-05-2024 Albumin [Mass/Vol] 3.7 g/dL Normal 3.2-5.[address] [facility] Comment on above: Performed By: #### L 101.9900, L501.6710 #### [facility] [address] [place], [address] Albumin/Globulin [Mass ratio] 1.1 {ratio} Normal 0.9-2.4 [facility] Comment on above: Performed By: #### L 101.9900, L501.6710 #### [facility] [address] [place], [address] ALK P 62 U/L Normal 45-117 [facility] Comment on above: Performed By: #### L 101.9900, L501.6710 #### [facility] [address] [place], [address] ALT [Catalytic activity/Vol] 24 U/L Normal 13-56 [facility] Comment on above: Performed By: #### L 101.9900, L501.6710 #### [facility] [address] [place], [address] AST [Catalytic activity/Vol] 14 U/L Low 15-37 [facility] Comment on above: Performed By: #### L 101.9900, L501.6710 #### [facility] [address] [place], [address] Bilirubin [Mass/Vol] 0.40 mg/dL Normal 0.20-1.00 [facility] Comment on above: Result Comment: For patients on eltrombopag therapy, use of Dimension Mosby TBIL is not recommended. Performed By: #### L 101.9900, L501.6710 #### [facility] [address] [place], [address] BUN/CRE 28.0 RATIO High 10-20 [facility] Comment on above: Performed By: #### L 101.9900, L501.6710 #### [facility] [address] [place], [address] CA,Total 9.7 mg/dL Normal 8.5-10.1 [facility] Comment on above: Performed By: #### L 101.9900, L501.6710 #### [facility] [address] [place], [address] Chloride [Moles/Vol] 108 mmol/L High 98-107 [facility] Comment on above: Performed By: #### L 101.9900, L501.6710 #### [facility] [address] [place], [address] CO2 [Moles/Vol] 27.0 mmol/L Normal 21.0-32.0 [facility] Comment on above: Performed By: #### L 101.9900, L501.6710 #### [facility] [address] [place], [address] Creatinine [Mass/Vol] 0.57 mg/dL Normal 0.55-1.02 [facility] Comment on above: Result Comment: The validity of the calculated GFR GFRAA in patients over 70 years has not been determined. Clinical correlation is essential. Performed By: #### L 101.9900, L501.6710 #### [facility] [address] [place], [address] EST GFR - AA 133 mL/min Normal >60 [facility] Comment on above: Result Comment: Afri can Scottish GFR Calc Performed By: #### L 101.9900, L501.6710 #### [facility] [address] [place], [address] GAP 5 Normal 5-15 [facility] Comment on above: Performed By: #### L 101.9900, L501.6710 #### [facility] [address] [place], [address] GFR/1.73 sq M.predicted among non-blacks MDRD (S/P/Bld) [Vol rate/Area] 110 mL/min/{1.73_m2} Normal >60 [facility] Comment on above: Result Comment: Non- GFR Calc Performed By: #### L 101.9900, L501.6710 #### [facility] [address] [place], [address] Globulin (S) [Mass/Vol] 3.5 g/dL Normal 2.2-4.2 [facility] Comment on above: Performed By: #### L 101.9900, L501.6710 #### [facility] [address] [place], [address] Glucose [Mass/Vol] 111 mg/dL High 74-[address] [facility] Comment on above: Result Comment: Fast ing Glucose result from 100 to 125 mg/dL suggests IMPAIRED HOMEOSTASIS per A.D.A. criteria. Performed By: #### L 101.9900, L501.6710 #### [facility] [address] [place], [address] Potassium [Moles/Vol] 4.0 mmol/L Normal 3.5-5.1 [facility] Comment on above: Performed By: #### L 101.9900, L501.6710 #### [facility] [address] [place], [address] Sodium [Moles/Vol] 140 mmol/L Normal 136-[address] [facility] Comment on above: Performed By: #### L 101.9900, L501.6710 #### [facility] [address] [place], [address] T PROT 7.2 g/dL Normal 6.4-8.2 [facility] Comment on above: Performed By: #### L 101.9900, L501.6710 #### [facility] [address], [address] Urea nitrogen [Mass/Vol] 16 mg/dL Normal 7-18 [facility] Comment on above: Performed By: #### L 101.9900, L501.6710 #### [facility] [address] [place], [address] Erythrocyte Sed Rateon 03-05 SED RATE 9 mm/hr Normal 0-30 [facility] Comment on above: Performed By: #### L 101.9900, L501.6710 #### [facility] [address] [place], [address] Internal Medicine Office Vis iton 02-05-2024 Internal Medicine Office Visit [facility] [address] [place], [place] [address] OFFICE VISIT Date of Service: 02/05/24 MR#: [id number] Acct: [id number] Name: DEYANIRA FELIX Rep #: [id number] : 1950 Provider: Dr. Shivani prado MD Age/Sex: 73/F Location: [facility] Status: Signed Intake Vital Signs 07/06/23 16:57 [...] was managed for right-sided temporal arteritis in [place]. Started out with visual impairment and following [...] hunger Aller/ (more content not included)... Normal [facility] CBC W/Diff, Automatedon 06-0 Absolute Lymph 1.29 X10 3/uL Normal 0.83-4.51 [facility] Comment on above: Performed By: #### L 101.9900, L501.6710 #### [facility] [place], [address] Absolute Neut 7.3 X10 3/uL Normal 2.0-7.7 [facility] Comment on above: Performed By: #### L 101.9900, L501.6710 #### [facility] [address] [place], [address] Basophils/100 WBC (Bld) 0.4 % Normal 0-1 [facility] Comment on above: Performed By: #### L 101.9900, L501.6710 #### [facility] [address] [place], [address] Eosinophils/100 WBC (Bld) 0.8 % Normal 0-5 [facility] Comment on above: Performed By: #### L 101.9900, L501.6710 #### [facility] [address] [place], [address] Erythrocyte distribution width (RBC) [Ratio] 12.1 % Normal 11.6-14.6 [facility] Comment on above: Performed By: #### L 101.9900, L501.6710 #### [facility] [address] [place], [address] Hematocrit (Bld) [Volume fraction] 41.6 % Normal 37-47 [facility] Comment on above: Performed By: #### L 101.9900, L501.6710 #### [facility] [address] [place], [address] Hemoglobin (Bld) [Mass/Vol] 13.3 g/dL Normal 12.0-15.0 [facility] Comment on above: Performed By: #### L 101.9900, L501.6710 #### [facility] [address] [place], [address] IG% 0.700 Normal 0.0-0.9 [facility] Comment on above: Result Comment: IG% - Immature Granulocytes (promyelocytes, myelocytes and metamyelocytes) > 1% indicates that a LEFT SHIFT is Present. Performed By: #### L 101.9900, L501.6710 #### [facility] [address] [place], [address] Lymphocytes/100 WBC (Bld) 14.0 % Low 19-41 [facility] Comment on above: Performed By: #### L 101.9900, L501.6710 #### [facility] [address] [place], [address] MCH (RBC) [Entitic mass] 30.6 pg Normal 27.0-32.0 [facility] Comment on above: Performed By: #### L 101.9900, L501.6710 #### [facility] [address] [place], [address] MCHC (RBC) [Mass/Vol] 32.0 g/dL Normal 32-36 [facility] Comment on above: Performed By: #### L 101.9900, L501.6710 #### [facility] [address] [place], [address] MCV (RBC) [Entitic vol] 95.9 fL Normal 81-99 [facility] Comment on above: Performed By: #### L 101.9900, L501.6710 #### [facility] [address] [place], [address] Monocytes/100 WBC (Bld) 4.7 % Normal 0-10 [facility] Comment on above: Performed By: #### L 101.9900, L501.6710 #### [facility] [address] [place], [address] Neutrophils/100 WBC (Bld) 79.4 % High 47-70 [facility] Comment on above: Performed By: #### L 101.9900, L501.6710 #### [facility] [address] [place], [address] Nucleated RBC (Bld) [#/Vol] 0 10*3/uL Normal 0-5 [facility] Comment on above: Performed By: #### L 101.9900, L501.6710 #### [facility] [address] [place], [address] Platelet mean volume (Bld) [Entitic vol] 9.3 fL Normal 6.2-12.0 [facility] Comment on above: Performed By: #### L 101.9900, L501.6710 #### [facility] [address] [place], [address] Platelets (Bld) [#/Vol] 287 10*3/uL Normal 150-450 [facility] Comment on above: Performed By: #### L 101.9900, L501.6710 #### [facility] [address] [place], [address] RBC (Bld) [#/Vol] 4.34 10*6/uL Normal 4.2-5.4 [facility] Comment on above: Performed By: #### L 101.9900, L501.6710 #### [facility] [address] [place], [address] RDW SD 42.5 fl Normal 35.1-43.9 [facility] Comment on above: Performed By: #### L 101.9900, L501.6710 #### [facility] [address] [place], [address] WBC (Bld) [#/Vol] 9.2 10*3/uL Normal 4.4-11.[address] [facility] Comment on above: Performed By: #### L 101.9900, L501.6710 #### [facility] [address] [place], [address] CRPon 02-02-2024 C-REACTIVE PROT 14.10 mg/L High 0.0-3.0 [facility] Comment on above: Result Comment: C-Re active Protein (CRP) provides useful information for the diagnosis, therapy and monitoring of inflammatory processes and associated diseases. For the evaluation of Relative Risk for Cardiovascular Disease, a High Sensitivity CRP (HSCRP) should be ordered. Performed By: #### L 101.9900, L501.6710 #### [facility] [address] [place], [address] Comprehensive Metabolic Prof ilon 02-02-2024 Albumin [Mass/Vol] 3.4 g/dL Normal 3.2-5.[address] [facility] Comment on above: Performed By: #### L 101.9900, L501.6710 #### [facility] [address] [place], [address] Albumin/Globulin [Mass ratio] 1.0 {ratio} Normal 0.9-2.4 [facility] Comment on above: Performed By: #### L 101.9900, L501.6710 #### [facility] [address] [place], [address] ALK P 64 U/L Normal 45-117 [facility] Comment on above: Performed By: #### L 101.9900, L501.6710 #### [facility] [address] [place], [address] ALT [Catalytic activity/Vol] 27 U/L Normal 13-56 [facility] Comment on above: Performed By: #### L 101.9900, L501.6710 #### [facility] [address] [place], [address] AST [Catalytic activity/Vol] 21 U/L Normal 15-37 [facility] Comment on above: Performed By: #### L 101.9900, L501.6710 #### [facility] [address] [place], [address] Bilirubin [Mass/Vol] 0.40 mg/dL Normal 0.20-1.00 [facility] Comment on above: Result Comment: For patients on eltrombopag therapy, use of Dimension Mosby TBIL is not recommended. Performed By: #### L 101.9900, L501.6710 #### [facility] [address] [place], [address] BUN/CRE 20.0 RATIO Normal 10-20 [facility] Comment on above: Performed By: #### L 101.9900, L501.6710 #### [facility] [address] [place], [address] CA,Total 9.4 mg/dL Normal 8.5-10.1 [facility] Comment on above: Performed By: #### L 101.9900, L501.6710 #### [facility] [address] [place], [address] Chloride [Moles/Vol] 105 mmol/L Normal 98-107 [facility] Comment on above: Performed By: #### L 101.9900, L501.6710 #### [facility] [address] [place], [address] CO2 [Moles/Vol] 29.0 mmol/L Normal 21.0-32.0 [facility] Comment on above: Performed By: #### L 101.9900, L501.6710 #### [facility] [address] [place], [address] Creatinine [Mass/Vol] 0.60 mg/dL Normal 0.55-1.02 [facility] Comment on above: Result Comment: The validity of the calculated GFR GFRAA in patients over 70 years has not been determined. Clinical correlation is essential. Performed By: #### L 101.9900, L501.6710 #### [facility] [address] [place], [address] EST GFR - AA 126 mL/min Normal >60 [facility] Comment on above: Result Comment: Afri can Scottish GFR Calc Performed By: #### L 101.9900, L501.6710 #### [facility] [address] [place], [address] GAP 5 Normal 5-15 [facility] Comment on above: Performed By: #### L 101.9900, L501.6710 #### [facility] [address] [place], [address] GFR/1.73 sq M.predicted among non-blacks MDRD (S/P/Bld) [Vol rate/Area] 104 mL/min/{1.73_m2} Normal >60 [facility] Comment on above: Result Comment: Non- GFR Calc Performed By: #### L 101.9900, L501.6710 #### [facility] [address] [place], [address] Globulin (S) [Mass/Vol] 3.4 g/dL Normal 2.2-4.2 [facility] Comment on above: Performed By: #### L 101.9900, L501.6710 #### [facility] [address] [place], [address] Glucose [Mass/Vol] 114 mg/dL High 74-[address] [facility] Comment on above: Result Comment: Fast ing Glucose result from 100 to 125 mg/dL suggests IMPAIRED HOMEOSTASIS per A.D.A. criteria. Performed By: #### L 101.9900, L501.6710 #### [facility] [address] [place], [address] Potassium [Moles/Vol] 4.1 mmol/L Normal 3.5-5.1 [facility] Comment on above: Performed By: #### L 101.9900, L501.6710 #### [facility] [address] [place], [address] Sodium [Moles/Vol] 139 mmol/L Normal 136-[address] [facility] Comment on above: Performed By: #### L 101.9900, L501.6710 #### [facility] [address] [place], [address] T PROT 6.8 g/dL Normal 6.4-8.2 [facility] Comment on above: Performed By: #### L 101.9900, L501.6710 #### [facility] [address] [place], [address] Urea nitrogen [Mass/Vol] 12 mg/dL Normal 7-18 [facility] Comment on above: Performed By: #### L 101.9900, L501.6710 #### [facility] [address] [place], [address] Erythrocyte Sed Rateon 02-01 SED RATE 11 mm/hr Normal 0-30 [facility] Comment on above: Performed By: #### L 500.4050, L100.0100, L501.6710, L101.9900 #### [facility] [address] [place], [address] PROTEIN, TOTAL AND PROTEIN E LECTROPHORESISon 06-02-2023 Albumin [Mass/Vol] 3.3 g/dL Low 3.8-4.8 [facility] Comment on above: Order Comment: FASTI NG: NO Performed By: #### 7 47 #### [facility] [address], [address] [place], [place] [id number] Pharmacy Technologist: Kamari aLm MD ALPHA 1 GLOBULIN 0.5 g/dL High 0.2-0.3 [facility] Comment on above: Order Comment: FASTI NG: NO Performed By: #### 7 47 #### [facility] [address], [address] [place], [place] [id number] Pharmacy Technologist: Kamari Lam MD ALPHA 2 GLOBULIN 1.2 g/dL High 0.5-0.9 [facility] Comment on above: Order Comment: FASTI NG: NO Performed By: #### 7 47 #### [facility] [place] [address] Pharmacy Technologist: Kamari Lam MD BETA 1 GLOBULIN 0.5 g/dL Normal 0.4-0.6 [facility] Comment on above: Order Comment: FASTI NG: NO Performed By: #### 7 47 #### [facility] [place] [address] Pharmacy Technologist: Kamari Lam MD BETA 2 GLOBULIN 0.4 g/dL Normal 0.2-0.5 [facility] Comment on above: Order Comment: FASTI NG: NO Performed By: #### 7 47 #### [facility] [place] [address] Pharmacy Technologist: Kamari Lam MD GAMMA GLOBULIN 1.0 g/dL Normal 0.8-1.7 [facility] Comment on above: Order Comment: FASTI NG: NO Performed By: #### 7 47 #### [facility] [place] [address] Pharmacy Technologist: Kamari Lam MD INTERPRETATION Normal [facility] Comment on above: Order Comment: FASTI NG: NO Result Comment: Evaluation is consistent with an acute inflammatory pattern. Performed By: #### 7 47 #### [facility] [place] [address] Pharmacy Technologist: Kamari Lam MD Protein [Mass/Vol] 6.9 g/dL Normal 6.1-8.1 [facility] Comment on above: Order Comment: FASTI NG: NO Performed By: #### 7 47 #### [facility] [place] [address] Pharmacy Technologist: Kamari Lam MD PROTEIN, TOTAL AND PROTEIN E LECTROPHORESISon 05-30-2023 Albumin [Mass/Vol] 3.6 g/dL Low 3.8-4.8 [facility] Comment on above: Order Comment: FASTI NG: NO Performed By: #### 7 47 #### [facility] of [address], [address] [place] [address] Pharmacy Technologist: Kamari Lam MD ALPHA 1 GLOBULIN 0.5 g/dL High 0.2-0.3 [facility] Comment on above: Order Comment: FASTI NG: NO Performed By: #### 7 47 #### [facility] [address], [address] [place] [address] Pharmacy Technologist: Kamari Lam MD ALPHA 2 GLOBULIN 1.1 g/dL High 0.5-0.9 [facility] Comment on above: Order Comment: FASTI NG: NO Performed By: #### 7 47 #### [facility] [address], [address] [place] [address] Pharmacy Technologist: Kamari Lam MD BETA 1 GLOBULIN 0.5 g/dL Normal 0.4-0.6 [facility] Comment on above: Order Comment: FASTI NG: NO Performed By: #### 7 47 #### [facility] [address], [address] [place] [address] Pharmacy Technologist: Kamari Lam MD BETA 2 GLOBULIN 0.4 g/dL Normal 0.2-0.5 [facility] Comment on above: Order Comment: FASTI NG: NO Performed By: #### 7 47 #### [facility] [place] [address] Pharmacy Technologist: Kamari Lam MD GAMMA GLOBULIN 1.1 g/dL Normal 0.8-1.7 [facility] Comment on above: Order Comment: FASTI NG: NO Performed By: #### 7 47 #### [facility] [place] [address] Pharmacy Technologist: Kamari Lam MD INTERPRETATION Normal [facility] Comment on above: Order Comment: FASTI NG: NO Result Comment: Evaluation is consistent with an acute inflammatory pattern. Performed By: #### 7 47 #### [facility] [address], [address] [place] [address] Pharmacy Technologist: Kamari Lam MD Protein [Mass/Vol] 7.2 g/dL Normal 6.1-8.1 [facility] Comment on above: Order Comment: FASTI NG: NO Performed By: #### 7 47 #### [facility] [address], [address] [place] [address] Pharmacy Technologist: Kamari Lam MD GAURANG SCREEN, IFA, W/REFL [...] AC-0: Negative International Consensus on GAURANG Patterns (https://doi.org/10.1515/ugby-8821-1739) For additional information, please refer to http://education.[employer]/faq/XHJ910 (This link is being provided for informational/ educational purposes only.) Performed By: #### 2 13, 809 #### [facility] [address], [address] [place] [address] Pharmacy Technologist: Kamari Lam MD SED RATE BY MODIFIED SYD Sarkar 05-23-2023 SED RATE BY MODIFIED WESTERGREN 86 mm/h High < OR = 30 [facility] Comment on above: Order Comment: FASTI NG: NO Performed By: #### 2 65, 809 #### [facility] [address], [address] [place] [address] Pharmacy Technologist: Kamari Lam MD Rapid Flu (98363 x 2)Ordered By: Dede Culver on 06-05-2015 FLUAV Ag IA Ql (Throat) Negative Normal [facility] Work Phone: Vital Signs Date Time Vital Sign Value Performing Clinician Facility 10-21-2024 10:39-0500 Body height 165.[address] Shivani Vallejo MD Work Phone: [facility] 10-21-2024 10:39-0500 Body mass index (BMI) [Ratio] 23.4 kg/m2 Dr. Shivani Vallejo MD Work Phone: [facility] 10-21-2024 10:39-0500 Body temperature 96.6 [degF] Dr. Shivani Vallejo MD Work Phone: [facility] 10-21-2024 10:39-0500 Body weight 63.[address] Shivani Vallejo MD Work Phone: [facility] 10-21-2024 10:39-0500 Diastolic blood pressure 58 mm[Hg] Dr. Shivani Vallejo MD Work Phone: [facility] 10-21-2024 10:39-0500 Heart rate 83 /min Dr. Shivani Vallejo MD Work Phone: [facility] 10-21-2024 10:39-0500 Respiratory rate 16 /min Dr. Shivani Vallejo MD Work Phone: [facility] 10-21-2024 10:39-0500 SaO2% (BldA) [Mass fraction] 97 % Dr. Shivani Vallejo MD Work Phone: [facility] 10-21-2024 10:39-0500 Systolic blood pressure 112 mm[Hg] Dr. Shivani Vallejo MD Work Phone: [facility] 12-13-2018 10:52-0400 BMI (Body Mass Index) 24.46 kg/m2 Brenda Whelan [facility] Work Phone: 12-13-2018 10:52-0400 Body Temperature 97.6 [degF] Brenda [facility] Work Phone: Comment on above: Method: Temporal 12-13-2018 10:52-0400 BP Diastolic 74 mm[Hg] Brenda Whelan [facility] Work Phone: Comment on above: Patient Position: Sitting; Cuff Location : Left Arm; Cuff Size: Standard 12-13-2018 10:52-0400 BP Systolic 130 mm[Hg] Brenda Whelan [facility] Work Phone: Comment on above: Patient Position: Sitting; Cuff Location : Left Arm; Cuff Size: Standard 12-13-2018 10:52-0400 BSA (Body Surface Area) 1.74 m2 Brenda Whelan [facility] Work Phone: 12-13-2018 10:52-0400 Height 165.1 cm Brenda Whelan [facility] Work Phone: 12-13-2018 10:52-0400 Pulse (Heart Rate) 78 /min Brenda Whelan [facility] Work Phone: Comment on above: Pattern: Regular 12-13-2018 10:52-0400 Pulse Oximetry 95 % Brenda Whelan [facility] Work Phone: Comment on above: Room air 12-13-2018 10:52-0400 Respiratory Rate 16 /min Brenda Whelan [facility] Work Phone: Comment on above: Pattern: Unlabored 12-13-2018 10:52-0400 Weight 66.68 kg Brenda Whelan [facility] Work Phone: 08-07-2017 10:04-0500 BMI (Body Mass Index) 24.46 kg/m2 Brenda Whelan [facility] Work Phone: 08-07-2017 10:04-0500 BP Diastolic 86 mm[Hg] Brenda Whelan [facility] Work Phone: Comment on above: [...] 08-07-2017 10:04-0500 Weight 66.68 kg Brenda Whelan [facility] Work Phone: 04-11-2016 14:53-0400 BMI (Body Mass Index) 24.82 kg/m2 Brenda [facility] Work Phone: 04-11-2016 14:53-0400 BP Diastolic 82 mm[Hg] Brenda Whelan [facility] Work Phone: Comment on above: Patient Position: Sitting; Cuff Location : Left Arm; Cuff Size: Standard 04-11-2016 14:53-0400 BP Systolic 138 mm[Hg] Brenda Whelan [facility] Work Phone: Comment on above: [...] ambulatory Dr. Shivani Vallejo MD Work Phone: [facility] Work Phone: Start: 01-22-2025 End: 01-22-[address] Deirdre Lozano MD -Laboratory Work Phone: Start: 01-22-2025 End: 01-22-2025 ambulatory [facility] Facility:[facility] Start: 11-22-2024 End: 11-22-[address] Shivani Vallejo MD Work Phone: [facility] Work Phone: Start: 11-22-2024 End: 11-22-[address] Deirdre Lozano MD -Laboratory Work Phone: Start: 11-22-2024 End: 11-22-2024 ambulatory [facility] Facility:[facility] Start: 10-21-2024 End: 10-21-[address] Shivani Vallejo MD Work Phone: [facility] [facility] Start: 10-21-2024 End: 10-21-[address] Shivani Vallejo MD -Laboratory, [facility] Start: 10-21-2024 End: 10-21-[address] Shivani Vallejo MD -[facility] Work Phone: Start: 10-21-2024 End: 10-21-2024 ambulatory [facility] Facility:[facility] Start: 10-21-2024 End: 10-21-2024 ambulatory [facility] Facility:[facility] Start: 10-03-2024 End: 10-03-[address] Deirdre Lozano MD -Laboratory Work Phone: Start: 10-03-2024 End: 10-03-2024 ambulatory Deirdre Lozano Facility:[facility] Start: 08-03-2024 End: 08-03-[address] Deirdre Lozano MD -Laboratory Work Phone: Start: 08-03-2024 End: 08-03-2024 ambulatory [facility] Facility:[facility] Start: 07-06-2024 End: 07-06-[address] Deirdre Lozano MD -Laboratory Work Phone: Start: 07-06-2024 End: 07-06-2024 [facility] Start: 05-27-2024 End: 05-27-2024 ambulatory [facility] Facility:[facility] Start: 04-25-2024 End: 04-25-2024 ambulatory [facility] Facility:[facility] Start: 04-13-2024 End: 04-13-2024 ambulatory [facility] Facility:[facility] Start: 04-08-2024 End: 04-08-2024 ambulatory [facility] Facility:[facility] Start: 03-27-2024 End: 03-27-2024 ambulatory [facility] Facility:[facility] Start: 03-05-2024 End: 03-05-[facility]24 [facility] Start: 02-05-2024 End: 02-05-2024 [facility] Start: 02-02-2024 End: 02-02-2024 ambulatory [facility] Facility:[facility] Start: 12-13-2018 Patient encounter procedure [facility] Start: 12-13-2018 End: 12-13-2018 Office outpatient visit 15 minutes [facility] Start: 08-07-2017 End: 08-07-2017 Office outpatient visit 15 minutes [facility] Start: 04-11-2016 End: 04-11-2016 Phone Encounter [facility] Start: 04-11-2016 End: 04-11-2016 Office outpatient visit 15 minutes [facility] Start: 06-05-2015 End: 06-05-2015 Office outpatient visit 15 minutes Brenda Whelan [facility] Start: 07-19-2013 End: 07-19-2013 Patient encounter procedure Brenda Whelan [facility] Start: 07-12-2013 End: 07-12-2013 Office outpatient visit 15 minutes Brenda Whelan [facility] Procedures Date Procedure Procedure Detail [...] Min 3 Views Comments: See Note; NOTES: [facility] Imaging Services [address] [place] [address] Hand Min 3 Views MR#: [id number] Acct: [id number] Name: DEYANIRA FELIX Rep #: [id number] : 1950 F 68 From: Natan Dave MD PCP: Brenda Whelan DO Status: REG CLI Study: Hand Min 3 Views Date of Exam: 12/13/18 Exam# [id number] Ordering Dr: Shahana Rebolledo [employer] STUDY: X-RAY - LEFT HAND REASON FOR [...] , CC: CORNELIUS Rebolledo; Brenda Whelan DO Still Operator: Signed Shahana Rebolledo Start: 12-13-2018 End: 12-13-2018 Wrist min 3 Views Comments: See Note; NOTES: [facility] Imaging Services [address] [place] [id number] Wrist min 3 Views MR#: [id number] Acct: [id number] Name: DEYANIRA FELIX Rep #: [id number] : 1950 F 68 From: Natan Dave MD PCP: Brenda Whelan DO Status: REG CLI Study: Wrist min 3 Views Date of Exam: 12/13/18 Exam# [id number] Ordering Dr: Shahana Rebolledo STUDY: X-RAY - [...] , CC: CORNELIUS Rebolledo; Brenda Whelan DO Still Operator: Signed Shahana Rebolledo Plan of Treatment Date [...] Phone: Start: 07-12-2013 Procedure Education [facility] Work Phone: Start: 07-12-2013 Provider Instructions for Treatment [facility] Work Phone: [facility] Work Phone: [facility] Work Phone: [facility] Work Phone: [facility] Work Phone: Payers Date Payer Category Payer Unknown [id number] 2024 Self-pay [id number] c 2023 Unknown [id number] Unknown [facility] [id number] Unknown [id number] Unknown [id number] [id number] Unknown [id number] [id number] Unknown [id number] [id number]2 Unknown [id number] 2.16.840.1.770367.3.579.2.462 Unknown [id number] 2.16.840.1.467454.3.579.2.462 Unknown [id number] 2.16.840.1.482677.3.579.2.462 Unknown [id number] 2.16.840.1.523473.3.579.2.462 Unknown [id number] 2.16.840.1.198687.3.579.2.462 Unknown [id number] 2.16.840.1.159720.3.579.2.462 Unknown [id number] 2.16.840.1.607545.3.579.2.462 Unknown [id number] 2.16.840.1.141836.3.579.2.462 Unknown [id number] 2.16.840.1.792477.3.579.2.462 Unknown [id number] 2.16.840.1.219741.3.579.2.462 Unknown [id number] [id number]2 Social History Date Type Detail Facility Start: 07-06-2023 End: 07-06-2023 Tobacco smoking status NMIS Never smoked tobacco (finding) [facility] Start: 05-01-2019 Spouse/ Significant Other Spouse/ Significant Other [facility] Start: 11-02-2024 End: 11-26-2024 Sex Female (finding) [facility] Start: 1950 Sex Assigned At Female [facility] Evaluation note 10-21-2024 Note Date & Type Note Facility 10-21-2024 Evaluation note Diagnosis Onset Date Resolution Osteoporosis acute September 10:34am Temporal arteritis acute Februa 2024 10:34am Insomnia chronic October 21, 2024 10:34am Myalgia resolved October 21, 2024 10:34am [facility] Work Phone: Reason for referral (narrative) Note Date & Type Note Facility Reason for referral (narrative) No reason for referral information available [facility] Work Phone: Summary Purpose Family History Relationship [...] DATE CREATED AUTHOR AUTHOR'S ORGANIZ ATION 01/29/2025 [facility] Care Teams (unrecognized sec tion and content) [...] BE BASED ON THE PRIMARY CLINICAL RECORDS. [employer] provides no warranty or guarantee of the accuracy or completeness of information in this document.
[2025-03-12 12:23] LABS: CRP 6.81 mg/L (0.0-3.0)
== END | disposition home or self-care (01) ==
PROVIDERS: PCP Internal Medicine; Referring Provider Internal Medicine Rheumatology; Visit Provider Internal Medicine Rheumatology
DX: M31.6 Other giant cell arteritis (principal); Z79.899 Other long term (current) drug therapy; H47.20 Unspecified optic atrophy
CPT/HCPCS: 36415; 85652; 86140

== ENCOUNTER → 2025-04-09 | Outpatient (CLI) | payer OTHER, SELFPAY ==
[2025-04-09 09:01] LABS: CRP < 3.00 mg/L (0.0-3.0)
== END | disposition home or self-care (01) ==
LOC: LAB 07:45
PROVIDERS: PCP Internal Medicine; Referring Provider Internal Medicine Rheumatology; Visit Provider Internal Medicine Rheumatology
DX: M31.6 Other giant cell arteritis (principal); Z79.899 Other long term (current) drug therapy; H47.20 Unspecified optic atrophy; Z87.19 Personal history of other diseases of the digestive system; H47.012 Ischemic optic neuropathy, left eye
CPT/HCPCS: 36415; 85652; 86140

== ENCOUNTER → 2025-05-09 | Outpatient (CLI) | payer SELFPAY, OTHER ==
--- NOTE | 2025-05-09 10:30 | BI_ITS ---
EXAM: SCRN MAMM (CAD)W/JOSE ALEJANDRO BILAT DATE: 05/09/2025 CLINICAL HISTORY: F, Age 75 y/o , BREAST CANCER SCREENING TECHNIQUE: Procedure Code: [id number] Modality: MG Procedure: SCRN MAMM (CAD)W/JOSE ALEJANDRO BILAT COMPARISON: Baseline examination, no priors. FINDINGS: TISSUE DENSITY: The breasts are heterogeneously dense, which may obscure small masses. The mammogram demonstrates that the patient has dense breasts. Supplemental screening with whole breast ultrasound or MRI may be considered for further evaluation. Bilateral Breast Mammographic Findings: No significant masses, calcifications or other abnormalities are identified. BI/SCRN MAMM (CAD)W/JOSE ALEJANDRO BILAT IMPRESSION: There is no mammographic evidence of malignancy. OVERALL FINAL ASSESSMENT BI-RADS 1: NEGATIVE. RECOMMENDATION: Routine annual follow-up in 1 Year A letter with findings and recommendations will be mailed to the patient. Reading Location: [id number]
== END | disposition home or self-care (01) ==
LOC: OPBI 08:49
PROVIDERS: PCP Internal Medicine; Referring Provider Internal Medicine; Visit Provider Internal Medicine
DX: Z12.31 Encounter for screening mammogram for malignant neoplasm of breast (principal)
CPT/HCPCS: 77063; 77067

== ENCOUNTER → 2025-06-09 | Outpatient (CLI) | payer OTHER, SELFPAY ==
[2025-06-09 10:14] LABS: Hematocrit 42.6 % (37-47); Hemoglobin 14.1 g/dL (12.0-15.0); Immature Granulocytes Count 0.010 X10^3/uL (0.0-0.0); Mean Corp Hgb Conc 33.1 g/dL (32-36); Mean Corpuscular Volume 92.4 fL (81-99); Mean Platelet Vol. 9.7 fl (6.2-12.0); NRBC Flagged by Analyzer 0 % (0-5); Platelet Count 217 K/mm3 (150-450); RBC Distribution Width CV 13.2 % (11.6-14.6); RBC Distribution Width SD 44.5 fl (35.1-43.9); Red Blood Count 4.61 M/mm3 (4.2-5.4); White Blood Count 6.1 K/mm3 (4.4-11.0)
[2025-06-09 10:25] LABS: CRP 7.03 mg/L (0.0-3.0)
[2025-06-09 11:34] LABS: AST(SGOT) 20 U/L (<=31); Alanine Aminotransfer ALT/SGPT 17 U/L (<=34); Albumin, Serum 4.2 g/dL (3.4-4.8); Alkaline Phosphatase 58 U/L (35-104); Anion Gap 10 (5-15); BUN 8 mg/dL (4-19); BUN/Creat Ratio 12.6 RATIO (10-20); Calcium,Total 9.5 mg/dL (7.6-11.0); Carbon Dioxide 28.5 mmol/L (21.0-32.0); Chloride 103 mmol/L (98-108); Globulin 2.4 g/dL (2.2-4.2); Glucose 82 mg/dL (70-99); Potassium 3.9 mmol/L (3.3-5.1); Vitamin D,25 Hydroxy 49.3 ng/mL (30-100)
== END | disposition home or self-care (01) ==
LOC: LAB 08:49
PROVIDERS: PCP Internal Medicine; Referring Provider Internal Medicine Rheumatology; Visit Provider Internal Medicine
DX: M31.6 Other giant cell arteritis (principal); Z79.899 Other long term (current) drug therapy; M81.0 Age-related osteoporosis without current pathological fracture
CPT/HCPCS: 36415; 80053; 82306; 85025; 85652; 86140